=== PATIENT | female | born 1950 | race Caucasian/White ===

== ENCOUNTER 2022-04-08 08:30 | Outpatient (RCR) | payer MEDICARE, OTHER, SELFPAY ==
--- NOTE | 2022-02-02 10:02 | HP.PTEVAL_ITS ---
Patient's Visit Information KARTHIK HOOPER is a 71 year old F referred to Physical Therapy by Dr. Juanito Paige DO with a diagnosis of Left Knee. Date of Evaluation: 02/02/22 Physical Therapist: Lynn Villarreal DPT - Visit Plan Frequency: 2x /Week Duration: 4 Weeks Plan: Aquatic- Focus on LE ROM and core and LE and strength/stabilization - Subjective Patient reports that she had bilateral TKR 2019- 3 months apart. They have been great but in the process of moving she started having left knee pain. The knee does not bother her when she is walking but at night it stiffens up at night. She saw MD who x-rayed it and the replacement is where it suppose to be. The stiffness is very uncomfortable. Worst is laying on her right side and the leg across and then trying to lift it back over. She has cramps in the back of the leg and it she has to manually move it. She only has 78 degrees of flexion but was close to 100 prior to having issues with it. No radiating pain. Her knee feels full and inflexibile. No N/T in the toes. She is also having pain in her left shoulder. Both water and land therapy. She wants to do water therapy. She has been taking Ibuprofen and Tylenol 2x a week. Sleep: wakes her up and keeps her from sleeping. She is active- walks and has an exericse bench- that she does 4 exercises on them from PT (LAQ, bridge, marching, side lying leg lifts). She has a fear of falling- she has not fallen since her knee replacements. PMHx/Meds: no changes since sad Dr. Mc-in chart. - Objective Posture: moderate FH, RS- can correct RS but not FH with verbal cues- does not maintain. Gait: no deviation noted- good arm swing and trunk rotation. HR/TR: able with UE A. Stairs: asc/desc 8 recip with 1 HR- turns sideways to descend. SLS: 3 sec bilaterally then LOB. ROM: 0-85. Strength: Core: fair minus, Hip: 4+/5, Knee: 5/5, Ankle: 5/5. Flex: HS: severe, Gastroc: moderate. Palpation: tender along posterior joint line - Balance/Special Test Scores Lower Extremity Functional Score: 55 - Goals Goal 1:: Patient will be I with HEP and progression Goal Time Frame: 4-6 Weeks Goal 2:: Patient will maintain proper posture t/o tx session to demo increased core s/s Goal Time Frame: 4-6 Weeks Goal 3:: Patient will demo 0-110 degrees of ROM in the left knee Goal Time Frame: 4-6 Weeks Goal 4:: Patient will report 80% improvement Goal Time Frame: 4-6 Weeks - Rehabilitation Potential Physical Therapy Diagnosis: Patient presents with hypomobility- she has decreased LE and core strength/stabilization and muscular endurance leading to poor posture and increased pain with ADL's Rehabilitation Potential: Good - Anticipated Interventions Patient/Client Instruction: Educate patient on: Benefits of Fitness Program Therapeutic Exercise to Include: Strength training, Endurance training, Balance training, Coordination, Agility training, Body mechanics, Postural training, Flexibilty training, Gait and locomotor training, Neuromotor development, In an aquatic setting, Dynamic Lumbar Stabilization, Scapular Strength/Stabilization For the Purpose of:: To improve muscle performance and motor function Thank you for the opportunity to evaluate your patient. For Medicare and Medicare HMO plans, please review the plan of care and approve it. It will need to be FAXED BACK to us at [phone] for Medicare purposes. For Medicare only, by signing this I certify the plan of care. Please let me know if there are questions or concerns regarding this plan of care. Physician Signature: Date:
--- NOTE | 2022-02-10 09:10 | HP.PTEVAL2_ITS ---
Patient's Visit Information KARTHIK HOOPER is a 71 year old F referred to Physical Therapy by Dr. Juanito Paige DO with a diagnosis of PAIN IN LEFT SHOULDER ,BURSITIS OF LEFT SHOULDER. Date of Evaluation: 02/10/22 Physical Therapist: Deondre Concepcion, PT, Cert MDT, OCS - Visit Plan Frequency: 2x /Week Duration: 4 Weeks Plan: PT POSTURAL EX'S ,RTC /SACPULAR STRENGTHNEING ,FUNCTIONAL STRENGTHENING AND MODALTIES PRN - Subjective Subjective: This 71 y/o female presents to for physical therapy for left shoulder pain. Patient has had left shoulder pain for~ 2week possibly from moving. Seen DR for shoulder x-rays showed -. Pain meds -CELEBRX. Patient pain located left lateral deltoid. Aggravating factors reaching to side and lifting OH. Patient denies paresthesia/tingling. No pain at rest increases with movement described as throbbing Patient pain doesn't affects sleeping . Patient goals to have no pain. Patient seeing Aquatics for knee. Patient shoulder pain impairs QOL and function and housework tasks. Patient has no h/o trauma. SOCAIL: lives alone. VOCATION: retired - Pain Left Shoulder Intensity: 5 Pain Intensity Range: 10 Comment: movement - Objective Objective: POSTURE: mild forward posture. PALPATION: unremarkable. AROM: shoulder flexion 150 degrees ,abduction 150 degrees pain at ER ,ER 90 degrees ,IR L1. NEURO: intact ,denies paresthesia/tingling. MMT: RTC 4/5 ,deltoid 4-/5 - Special Tests External Rotation Lag Test - RC Tear: Negative Supine Impingement Test - RC Tear: Negative Lift Off Test - Subscapular Tear: Negative Drop Sign - IS Test: Negative Empty Can - SS: Negative Neer - Impingement: Positive [place]an - Impingement: Positive - Goals Goal 1:: Patient to be I with HEP Goal Time Frame: 4-6 Weeks Goal 2:: Patient to improve posture 90% of time during ADLS' and housework tasks Goal Time Frame: 4-6 Weeks Goal 3:: Patient to demonstrate 60% improvement with decrease pain and improved function Goal Time Frame: 4-6 Weeks Goal 4:: Patient to improve ability to perform quick dash by 5 points to improve QOL Goal Time Frame: 4-6 Weeks - Rehabilitation Potential Physical Therapy Diagnosis: This patient has left shoulder pain with pain with OH activities impairs housework tasks and minor impingement signs thus benefit from skilled PT Rehabilitation Potential: Good - Anticipated Interventions Patient/Client Instruction: Educate patient on: Condition, Plan of Care For the Purpose of:: To decrease pain, To increase ROM, To improve muscle performance and motor function, To improve ability to perform ADL's, To increase tolerance to activity/condition/position, To improve ability of physical actions for home/community/work/leisure, To improve health of tissue, To decrease soft tissue restriction, To increase flexibility/ROM, To prevent re-injury, To improve tolerance to ADL's Therapeutic Exercise to Include: Strength training, Endurance training, Postural training, Flexibilty training, Active ROM For the Purpose of:: To decrease pain, To increase ROM, To improve muscle performance and motor function, To improve ability to perform ADL's, To increase tolerance to activity/condition/position, To improve ability of physical actions for home/community/work/leisure, To improve health of tissue, To decrease soft tissue restriction, To increase flexibility/ROM, To prevent re-injury TENS: Yes IF ES: Yes Cryotherapy (ice pack, ice massage): Yes Thermo therapy (hot pack): Yes Ultrasound (thermal/non thermal): Yes For the Purpose of:: To decrease pain, To increase ROM, To improve health of tis álvaro, To decrease soft tissue restriction Thank you for the opportunity to evaluate your patient. For Medicare and Medicare HMO plans, please review the plan of care and approve it. It will need to be FAXED BACK to us at [phone] for Medicare purposes. For Medicare only, by signing this I certify the plan of care. Please let me know if there are questions or concerns regarding this plan of care. Physician Signature: Date:
--- NOTE | 2022-03-03 09:54 | HP.PTREVAL_ITS ---
Dr. Juanito Paige, DO, It has been my pleasure to treat KARTHIK HOOPER over the last 9 visits for Left Knee. Please see the progress note below for an update on the physical therapy plan of care! Subjective: Patient reports that the knee is much improved- she understands its a marathon not a sprint- she has been given tools to continue indep. She is sti ll having pain and had a little bit of a setback in her sleep and it was stiff and painful- came to PT worked it out and it was better. Objective/Function: Posture: fair throughout, Gait: slightly antalgic- decreased stance on the right LE, HR/TR: able SLS: 5 sec ROM: 0-90 degrees, Strength: Core: fair, Hip: 4/5 with discomfort in flexion testing, Knee: 4+/5, Ankle: 5/5 Flex: HS: moderate, Gastroc: moderate Plan Plan: 03/03/22: Hold- patient will do 4 week indep and follow up. Aquatic- Focus on LE ROM and core and LE and strength/stabilization Balance/Gait/Functional tests - Balance/Special Test Scores Lower Extremity Functional Score: 53 Quick DASH Score: 22.5000 Goals Goal 1:: Patient will be I with HEP and progression Goal Time Frame: 4-6 Weeks Goal Progress: Goal Met Goal 2:: Patient will maintain proper posture t/o tx session to demo increased core s/s Goal Time Frame: 4-6 Weeks Goal Progress: Progressing Goal 3:: Patient will demo 0-110 degrees of ROM in the left knee Goal Time Frame: 4-6 Weeks Goal Progress: Progressing Goal 4:: Patient will report 80% improvement Goal Time Frame: 4-6 Weeks Goal Progress: Progressing Anticipated Interventions Patient/Client Instruction: Educate patient on: Benefits of Fitness Program Therapeutic Exercise to Include: Strength training, Endurance training, Balance training, Coordination, Agility training, Body mechanics, Postural training, Flexibilty training, Gait and locomotor training, Neuromotor development, In an aquatic setting, Dynamic Lumbar Stabilization, Scapular Strength/Stabilization For the Purpose of:: To improve muscle performance and motor function Please do not hesitate to contact me at [phone] by phone or if you have questions or concerns regarding this new plan of care! Sincerely, Lynn Villarreal DPT
--- NOTE | 2022-04-24 16:02 | HP.PTDCS(2) ---
It has been my pleasure to treat KARTHIK HOOPER referred by Dr. Juanito Paige DO, with the diagnosis of PAIN IN LEFT SHOULDER ,BURSITIS OF LEFT SHOULDER for a total of 11 visit(s). Discharge Date: Please see the following information for a summary of their discharge status. Subjective: Patient has been able to do on own past month. Less pain ..sleeping better % Improvement: 75 Objective/Function/Assessment: POSTURE:rounded shoulders. PALAPTION: AROM: shoulder flexion 160 degrees ,abd 160 ER 90. MMT: GROSSLY 4/5 RTC ,DELTOID 4/5. - impingement Patient Goals: Improve Mobility, Improve Function Goal 1:: Patient to be I with HEP Goal 2:: Patient to improve posture 90% of time during ADLS' and housework tasks Goal 3:: Patient to demonstrate 60% improvement with decrease pain and improved function Goal 4:: Patient to improve ability to perform quick dash by 5 points to improve QOL Plan: D/C If there are questions or concerns regarding this patient's physical therapy, please feel free to call me at [phone]. Thank you for the referral of this patient. Sincerely, Deondre Concepcion, PT, Cert MDT, OCS
--- NOTE | 2022-04-28 09:23 | HP.PT.NRP ---
KARTHIK HOOPER was seen in my office for initial evaluation on 02/02/22. The following Plan of Care was established for this patient: Initial Frequency: 2x /Week Initial Duration: 4 Weeks Patient/Client Instruction: Educate patient on: Benefits of Fitness Program Therapeutic Exercise to Include: Strength training, Endurance training, Balance training, Coordination, Agility training, Body mechanics, Postural training, Flexibilty training, Gait and locomotor training, Neuromotor development, In an aquatic setting, Dynamic Lumbar Stabilization, Scapular Strength/Stabilization For the Purpose of:: To improve muscle performance and motor function This patient was last seen in our office . Pertinent comments regarding their Physical therapy will appear below: Patient called 04/24/22 and would like to be d/c- pt has completed physical therapy- appropriate for d/c- encouraged to call if questions or concerns. At this point I will be discontinuing this patient from physical therapy. I would be happy to see this patient again in the future if found appropriate by the physician. Thank you! Lynn Villarreal DPT Balance/Gait/Functional tests - Balance/Special Test Scores Lower Extremity Functional Score: 53 Quick DASH Score: 13.6350
== END 2022-04-08 19:00 | disposition home or self-care (01) ==
LOC: PT 08:30
PROVIDERS: Referring Provider Orthopaedic Surgery; Visit Provider Orthopaedic Surgery
DX: M25.662 Stiffness of left knee, not elsewhere classified (principal); Z96.659 Presence of unspecified artificial knee joint; Z47.1 Aftercare following joint replacement surgery; M25.562 Pain in left knee
CPT/HCPCS: 97110; 97113; 97162; 97164

== ENCOUNTER → 2022-10-25 | Outpatient (CLI) | payer MEDICARE, OTHER, SELFPAY ==
[2022-10-25 15:13] LABS: Mucous, Urine 0 SEEN /hpf (<or=2+)
[2022-10-25 15:23] LABS: Color, Urine Yellow (Yellow); Glucose, Dipstick Normal (Normal); Ketone-Dipstick Negative (Negative); Leukocyte Esterase-Dipstick 500 /ul (Negative); Nitrite-Dipstick Positive (Negative); Occult Blood-Urine 25 /ul (Negative); Protein-Dipstick Negative (Negative); Urine Bilirubin Dipstick Negative (Negative); Urine Clarity Sl. Cloudy (Clear); Urine Urobilinogen Normal (Normal)
[2022-10-25 15:53] LABS: Amorphous Sediment 1+ PHOS; Bacteria 2+ /hpf (None Seen); Red Blood Cells-Urine 0-5 SEEN /hpf (0-5); Squamous Epithelial Cells - UA 0-5 SEEN /hpf (5-10); White Blood Cells 50-100 SEEN /hpf (0-5)
== END | disposition home or self-care (01) ==
PROVIDERS: Visit Provider Nurse Practitioner Family
DX: R30.0 Dysuria (principal)
CPT/HCPCS: 81001; 87077; 87086; 87088; 87186

== ENCOUNTER 2022-11-02 10:30 | Outpatient (RCR) | payer MEDICARE, OTHER, SELFPAY ==
--- NOTE | 2022-07-29 16:47 | HP.PTEVAL_ITS ---
Patient's Visit Information KARTHIK HOOPER is a 72 year old F referred to Physical Therapy by CLEMENT GARCIA with a diagnosis of BPPV. Date of Evaluation: 07/29/22 Physical Therapist: Ubaldo Moore, JONATHONT, OCS, CSCS - Visit Plan Frequency: 1x/Week Duration: 4-6 Weeks Plan: weekly as needed x 4-6 for progression of home adaptation exercises(given VOR H and V today 60 seconds seated 6x/day - Subjective Had some spinning and vertigo. Intermittent for a long time. 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 Treated for BPPV last year and gone but recently returned. Came back about a week and a half ago. Good in am and worse as day progresses. Feels like a motion in head, worse driving in traffic. no spinning lately. Lying and rolling are OK, looking up and walking might set it off. Activities are pretty normal but can get nauseous sometimes. feels crummy. Retired. Sleeps well. Walks and does water aeorbics. - Objective Walking I, trasnfer I, steps R leg tough due to knee not dizzy. VOR walking is good. cervical AROM is WFL and painfree. - B hallpike josefa, - roll test. Oculomotor: - skew eye deviation. - ocular tilt. + head thrust L. + DVA > 2 lines form SVA. pursuit and saccades are normal. no nystagmus with gaze or head shake. - Balance/Special Test Scores Functional Gait Assessment Score: 26 % Disability: 13.3400 Dizziness Score: 20 - Goals Goal 1:: Dizzyness will be abolished Goal Time Frame: 4-6 Weeks Goal 2:: Pt will feel normal with activities in traffic, scrolling phone etc. Goal Time Frame: 4-6 Weeks Goal 3:: I appropriate ex to manage condition Goal Time Frame: 4-6 Weeks Goal 4:: DHI score less than 6 Goal Time Frame: 4-6 Weeks - Rehabilitation Potential Physical Therapy Diagnosis: Likely unilateral vestibular hypofunction Rehabilitation Potential: Good - Anticipated Interventions Patient/Client Instruction: Educate patient on: Condition, Plan of Care For the Purpose of:: To increase tolerance to activity/condition/position Comment: adaptation as needed For the Purpose of:: To increase tolerance to activity/condition/position Thank you for the opportunity to evaluate your patient. For Medicare and Medicare HMO plans, please review the plan of care and approve it. It will need to be FAXED BACK to us at [phone] for Medicare purposes. For Medicare only, by signing this I certify the plan of care. Please let me know if there are questions or concerns regarding this plan of care. Physician Sign ature: Date:
--- NOTE | 2022-08-20 14:19 | HP.PTREVAL ---
CLEMENT GARCIA, It has been my pleasure to treat KARTHIK HOOPER over the last 3 visits for BPPV. Please see the progress note below for an update on the physical therapy plan of care! Subjective: Doing well. Did exercises without dizzyness. Walking is not challenging due to dizzyness but more to confidence. Not noticing any other dizzyness in last 2 weeks. Activities pretty normal at home. no positional problem. Has not taken long road trip. Had phone conference with doctor last week and going well. Got new referral for different type of therapy. Objective/Function: no dizzyness created to day with FGA, VOR walking or bending and looking up. Subjectively doing well also. Plan Plan: F/U one month or prior if needed to ensure consistency of goals met and d/c. Balance/Gait/Functional tests - Balance/Special Test Scores Functional Gait Assessment Score: 27 % Disability: 10.0000 Dizziness Score: 2 Goals Goal 1:: Dizzyness will be abolished Goal Time Frame: 4-6 Weeks Goal Progress: Goal Met Goal 2:: Pt will feel normal with activities in traffic, scrolling phone etc. Goal Time Frame: 4-6 Weeks Goal Progress: Goal Met Goal 3:: I appropriate ex to manage condition Goal Time Frame: 4-6 Weeks Goal Progress: Goal Met Goal 4:: DHI score less than 6 Goal Time Frame: 4-6 Weeks Goal Progress: Goal Met Anticipated Interventions Patient/Client Instruction: Educate patient on: Condition, Plan of Care For the Purpose of:: To increase tolerance to activity/condition/position Comment: adaptation as needed For the Purpose of:: To increase tolerance to activity/condition/position Please do not hesitate to contact me at [phone] by phone or if you have questions or concerns regarding this new plan of care! Sincerely, Ubaldo Moore, DPT, OCS, CSCS
--- NOTE | 2022-09-09 13:29 | HP.PTDCSUM_ITS ---
It has been my pleasure to treat KARTHIK HOOPER referred by CLEMENT ESTEVEZ, with the diagnosis of BPPV for a total of 3 visit(s). Discharge Date: Please see the following information for a summary of their discharge status. Subjective: Doing well. Did exercises without dizzyness. Walking is not challenging due to dizzyness but more to confidence. Not noticing any other dizzyness in last 2 weeks. Activities pretty normal at home. no positional problem. Has not taken long road trip. Had phone conference with doctor last week and going well. Got new referral for different type of therapy. % Improvement: 100 Objective/Function: no dizzyness created to day with FGA, VOR walking or bending and looking up. Subjectively doing well also. Goal 1:: Dizzyness will be abolished Goal Progress: Goal Met Goal 2:: Pt will feel normal with activities in traffic, scrolling phone etc. Goal Progress: Goal Met Goal 3:: I appropriate ex to manage condition Goal Progress: Goal Met Goal 4:: DHI score less than 6 Goal Progress: Goal Met Plan: F/U one month or prior if needed to ensure consistency of goals met and d/c. If there are questions or concerns regarding this patient's physical therapy, please feel free to call me at [phone]. Thank you for the referral of this patient. Sincerely, Verena William, JULIETTE Balance/Gait/Functional tests - Balance/Special Test Scores Functional Gait Assessment Score: 27 % Disability: 10.0000 Dizziness Score: 2 Lower Extremity Functional Score: 80
--- NOTE | 2022-09-09 17:01 | HP.PT.NRP ---
KARTHIK HOOPER was seen in my office for initial evaluation on 07/29/22. The following Plan of Care was established for this patient: Initial Frequency: 1x/Week Initial Duration: 4-6 Weeks Patient/Client Instruction: Educate patient on: Condition, Plan of Care For the Purpose of:: To increase tolerance to activity/condition/position For the Purpose of:: To increase tolerance to activity/condition/position This patient was last seen in our office 08/20/22. Pertinent comments regarding their Physical therapy will appear below: Pt seen 3 visits of positional treatments and was doing well, was to f/u a month later but has seen another therapist for OP and said she is doing fine and will not be returning. i will discontinue at this time. At this point I will be discontinuing this patient from physical therapy. I would be happy to see this patient again in the future if found appropriate by the physician. Thank you! Ubaldo Moore, DPT, OCS, CSCS Balance/Gait/Functional tests - Balance/Special Test Scores Functional Gait Assessment Score: 27 % Disability: 10.0000 Dizziness Score: 2 Lower Extremity Functional Score: 80
--- NOTE | 2022-11-02 11:06 | HP.PTDCSUM_ITS ---
Discharge Summary D/C summary: It has been my pleasure to treat KARTHIK HOOPER referred by CLEMENT ESTEVEZ, with the diagnosis of BPPV for a total of 3 visit(s). Discharge Date: Please see the following information for a summary of their discharge status. Subjective Subjective: Doing well. Did exercises without dizzyness. Walking is not challenging due to dizzyness but more to confidence. Not noticing any other dizzyness in last 2 weeks. Activities pretty normal at home. no positional problem. Has not taken long road trip. Had phone conference with doctor last week and going well. Got new referral for different type of therapy. Overall Improvement % Improvement: 100 Objective Objective/Function: no dizzyness created to day with FGA, VOR walking or bending and looking up. Subjectively doing well also. Goals Goal 1:: Dizzyness will be abolished Goal Progress: Goal Met Goal 2:: Pt will feel normal with activities in traffic, scrolling phone etc. Goal Progress: Goal Met Goal 3:: I appropriate ex to manage condition Goal Progress: Goal Met Goal 4:: DHI score less than 6 Goal Progress: Goal Met Plan Plan: F/U one month or prior if needed to ensure consistency of goals met and d/c. D/C Information d/c sentence: If there are questions or concerns regarding this patient's physical therapy, please feel free to call me at [phone]. Thank you for the referral of this patient. Sincerely, Verena William, MPT Balance/Gait/Functional tests Balance/Special Test Scores Functional Gait Assessment Score: 27 % Disability: 10.0000 Dizziness Score: 2 Lower Extremity Functional Score: 62
--- NOTE | 2022-11-02 11:23 | HP.PTREVAL ---
Re-Evaluation Intro: CLEMENT GARCIA, It has been my pleasure to treat KARTHIK HOOPER over the last 3 visits for BPPV. Please see the progress note below for an update on the physical therapy plan of care! Subjective Subjective: Doing well. Did exercises without dizzyness. Walking is not challenging due to dizzyness but more to confidence. Not noticing any other dizzyness in last 2 weeks. Activities pretty normal at home. no positional problem. Has not taken long road trip. Had phone conference with doctor last week and going well. Got new referral for different type of therapy. Objective Objective/Function: no dizzyness created to day with FGA, VOR walking or bending and looking up. Subjectively doing well also. Plan Plan Plan: F/U one month or prior if needed to ensure consistency of goals met and d/c. Balance/Gait/Functional tests Balance/Special Test Scores Functional Gait Assessment Score: 27 % Disability: 10.0000 Dizziness Score: 2 Lower Extremity Functional Score: 62 Goals Goals Goal 1:: Dizzyness will be abolished Goal Time Frame: 4-6 Weeks Goal Progress: Goal Met Goal 2:: Pt will feel normal with activities in traffic, scrolling phone etc. Goal Time Frame: 4-6 Weeks Goal Progress: Goal Met Goal 3:: I appropriate ex to manage condition Goal Time Frame: 4-6 Weeks Goal Progress: Goal Met Goal 4:: DHI score less than 6 Goal Time Frame: 4-6 Weeks Goal Progress: Goal Met Anticipated Interventions Anticipated Interventions Patient/Client Instruction: Educate patient on: Condition and Plan of Care For the Purpose of:: To increase tolerance to activity/condition/position Comment: adaptation as needed For the Purpose of:: To increase tolerance to activity/condition/position Re-Evaluation Ending Re-evaluation ending: Please do not hesitate to contact me at [phone] by phone or if you have questions or concerns regarding this new plan of care! Sincerely, Verena William, MPT
--- NOTE | 2022-11-23 12:59 | HP.PTDS(2)_ITS ---
Discharge Summary D/C Summary: It has been my pleasure to treat KARTHIK HOOPER referred by CLEMENT ESTEVEZ, with the diagnosis of osteoporosis for a total of 6 visit(s). Discharge Date: 11/02/22 Please see the following information for a summary of their discharge status. Subjective Subjective: She has been coming at least 4-5X/ week and she feels that she can see improvement in her daily activities and she has increased her flexibility on her knee. She does not have to drag her knee out of the car anymore. She is feeling more confident. She is not having night knee pain anymore. Stairs: she is not faster and she still goes up slow. Overall Improvement % Improvement: 85 Objective Objective/Function/Assessment: Stairs: Up and down recip with some weakness present driving her L leg through the step and one hand rail R knee in sitting 90 degrees Hip flex R 13.5 and L 13.2 Knee ext R 27.7 and L 24.2 Knee flex R 14.8 and L 11.9 R hip abd 21.1 L hip abd 21.7 Goals Patient Goals: Improve Mobility and Improve Function Goal 1:: I HEP and weight bearing H&W program Goal Progress: Goal Met Goal 2:: Increase L knee AROM to be able to go up and down the stairs recip with more ease Goal Progress: Goal Met Goal 3:: Increase L hip flex strength( at the time of the eval: (LE MMT: Hip flex R 12.9 and L 9 Knee ext R 27.7 and L 24.2 Knee flex R 12.2 and L 9.6 R hip abd 11.4 L hip abd 12.1) Goal Progress: Goal Met Plan Plan: DC PT to I HEP D/C Information Discharge Comments: DC PT to H&W program d/c sentence: If there are questions or concerns regarding this patient's physical therapy, please feel free to call me at [phone]. Thank you for the referral of this patient. Sincerely, Verena William, MPT Balance/Special Test Scores Balance/Special Test Scores Functional Gait Assessment Score: 24 % Disability: 20.0000
== END 2022-11-02 19:00 | disposition home or self-care (01) ==
LOC: PT 10:30
DX: H81.10 Benign paroxysmal vertigo, unspecified ear (principal)
CPT/HCPCS: 97110; 97161; 97164; 97530

== ENCOUNTER → 2022-12-08 | Outpatient (CLI) | payer MEDICARE, OTHER, SELFPAY ==
[2022-12-08 16:18] LABS: Bacteria 0 SEEN /hpf (None Seen); Mucous, Urine 0 SEEN /hpf (<or=2+); Red Blood Cells-Urine 0 SEEN /hpf (0-5); Squamous Epithelial Cells - UA 0 SEEN /hpf (5-10); White Blood Cells 0 SEEN /hpf (0-5)
[2022-12-08 16:38] LABS: Color, Urine Yellow (Yellow); Glucose, Dipstick Normal (Normal); Ketone-Dipstick Negative (Negative); Leukocyte Esterase-Dipstick 25 /ul (Negative); Nitrite-Dipstick Negative (Negative); Occult Blood-Urine Negative /ul (Negative); Protein-Dipstick Negative (Negative); Urine Bilirubin Dipstick Negative (Negative); Urine Clarity Clear (Clear); Urine Urobilinogen Normal (Normal)
== END | disposition home or self-care (01) ==
LOC: LABSPEC 15:47
PROVIDERS: Referring Provider Physician Assistant; Visit Provider Physician Assistant
DX: R30.0 Dysuria (principal)
CPT/HCPCS: 81001; 87086

== ENCOUNTER → 2023-01-07 | Outpatient (CLI) | payer MEDICARE, OTHER, SELFPAY ==
[2023-01-07 08:48] LABS: Mucous, Urine 0 SEEN /hpf (<or=2+)
[2023-01-07 10:35] LABS: Color, Urine Yellow (Yellow); Glucose, Dipstick Normal (Normal); Ketone-Dipstick Negative (Negative); Leukocyte Esterase-Dipstick 500 /ul (Negative); Nitrite-Dipstick Negative (Negative); Occult Blood-Urine 10 /ul (Negative); Protein-Dipstick Negative (Negative); Urine Bilirubin Dipstick Negative (Negative); Urine Clarity Sl. Cloudy (Clear); Urine Urobilinogen Normal (Normal)
[2023-01-07 10:52] LABS: Bacteria 1+ /hpf (None Seen); Red Blood Cells-Urine 0-5 SEEN /hpf (0-5); Renal Epithelial Cells 0-5 SEEN /hpf (0-5); Squamous Epithelial Cells - UA 0-5 SEEN /hpf (5-10); White Blood Cells 10-25 SEEN /hpf (0-5)
== END | disposition home or self-care (01) ==
PROVIDERS: Visit Provider Physician Assistant Surgical
DX: R30.0 Dysuria (principal); N30.00 Acute cystitis without hematuria
CPT/HCPCS: 81001; 87077; 87086; 87088; 87186

== ENCOUNTER 2023-01-19 11:35 | Emergency (ER) | payer MEDICARE, OTHER, SELFPAY ==
[2023-01-19 11:37] VITALS: BP 173/86; PULSE 51; RESP 16; TEMP 35.9; O2SAT 100; BMI 35.2
--- NOTE | 2023-01-19 12:16 | EX.ED.DYSGE1 ---
HPI History of Present Illness Chief Complaint: Hypertension Detail of Chief Complaint: Acute on chronic hypertension Informant: patient Onset/Context/Timing Onset: Today and Hours Context: Gradual Onset Timing: Continuous Current Severity: Mild Maximum Severity: Mild Narrative Narrative: 72-year-old female history of hypertension. She also has some anxiety. Says her blood pressures been running elevated today. Denies chest pain or significant headache. No recent illness. She already is on a beta-leydi and hydrochlorothiazide. She sees a primary care physician out of [place] and recently she moved to [place]. Prior similar symptoms: Yes Recent Illness/Hospitalization: No [facility] Medical History Arthritis Hemorrhoid Hypertension Stiffness of left knee Home Medications biotin 1 mg capsule 1 mg PO DAILY 01/28/22 [History Last Taken Unknown] cholecalciferol (vitamin D3) 25 mcg (1,000 unit) capsule 25 mcg PO DAILY 01/28/22 [History Last Taken Unknown] coenzyme [id number] E 100 mg-100 unit capsule cap PO 01/28/22 [History Last Taken Unknown] hydrochlorothiazide 12.5 mg capsule 12.5 mg PO 01/28/22 [History Last Taken Unknown] magnesium 200 mg tablet 200 mg PO DAILY 01/28/22 [History Last Taken Unknown] nadolol 20 mg tablet 20 mg PO 01/28/22 [History Last Taken Unknown] rosuvastatin 20 mg tablet 20 mg PO 01/28/22 [History Last Taken Unknown] celecoxib 100 mg capsule (Celebrex) 100 mg PO BID #60 caps 02/04/22 [Rx Last Taken Unknown] omeprazole 20 mg capsule,delayed release 20 mg PO DAILY 07/06/22 [History Last Taken Unknown] ibandronate 150 mg tablet (Boniva) 150 mg PO QMONTH #12 tabs 10/25/22 [Rx Last Taken Unknown] Allergy/AdvReac Type Severity Reaction Status Date / Time No Known Allergies Allergy Unverified 01/07/23 07:34 Family History Other Cancer Heart disease Surgical History H/O: hysterectomy History of cholecystectomy Hx of appendectomy Hx of total knee arthroplasty Social History household members: none Smoking Status: Never smoker alcohol intake: current alcohol intake frequency: holidays/special occasions only ROS ROS ED ROS Narrative Denies recent illness. Review of Systems ROS Unobtainable: Denies due to encephalopathy Constitutional Constitutional ED: Denies chills or fever(s) Eyes Eyes: Denies blurry vision ENT ENT ED: Denies ear pain Cardiovascular Cardiovascular: Denies chest pain or palpitations Respiratory/Chest Respiratory/Chest: Denies cough or dyspnea Gastrointestinal Gastrointestinal: Denies abdominal pain Genitourinary Genitourinary ED: Denies dysuria Integumentary Denies abscess Neurologic Neurologic: Denies headache(s) Psychiatric Psychiatric: Reports anxiety; Denies depression Endocrine Endocrinology: Denies cold intolerance Hematologic/Lymphatic Hematologic/Lymphatic: Reports none Allergic/Immunologic Allergic/Immunologic ED: Denies mouth swelling or tongue swelling EXAM Physical Exam Narrative Exam Narrative: Well-appearing 72-year-old female. Initial blood pressure 173/86 when I am in the room is 152/76. No distress. HEENT exam unremarkable. Lungs clear. Heart regular rhythm. Abdomen soft nontender. Moving all 4 extremities. Neurologically she is awake and alert. No focal motor deficits. NIH score is 0. Const Vital Signs: 01/19/23 11:37 01/19/23 11:55 Temperature 96.7 F L Temperature Source Temporal Pulse Rate 51 L Respiratory Rate 16 Respiratory Effort Normal Non-Labored Respiratory Pattern Normal Blood Pressure 173/86 H Blood Pressure Mean 115 Pulse Ox 100 Oxygen Delivery Method Room Air Positive well nourished and well developed; Negative for cachectic, contractures or unkempt General Appearance ED: well developed and NAD; Negative for unkempt, cachectic, contractures, cyanotic, diaphoretic or pallor Nutritional Appearance: Negative for cachectic HEENT Reports moist mucous membranes Negative for trauma or tenderness Eyes PERRL and EOMs intact bilaterally General Eye ED: Negative for pale conjunctiva or scleral icterus Neck no lymphadenopathy, supple and no JVD General: Negative for tenderness Lymph Lymphatic: Negative for other Chest Wall inspection of chest normal and palpation of chest normal Chest: Negative for other Resp normal respiratory effort and clear to auscultation bilaterally Effort and Inspection: Negative for retractions Auscultation: Negative for rales, rhonchi or wheezes Cardio regular rate, regular rhythm, S1 normal heart sound, S2 normal heart sound and no murmurs Palpation: Negative for palpable S3 Rate: Negative for bradycardia or tachycardic Rhythm: Negative for abnormal rhythm GI normal to inspection, nondistended, normoactive bowel sounds, non-tender, non-distended and no masses Inspection: Negative for abdominal distention Auscultation: normoactive bowel sounds Palpation: soft; Negative for tender or guarding Bladder / Kidney Exam: No other Back/Spine no CVA tenderness General Back: Negative for CVA tenderness Cervical Spine: Negative for cervical spine tenderness Thoracic Spine / Upper Back: Negative for thoracic spinal tenderness or paraspinal muscle tenderness Lumbar Spine / Lower Back: Negative for lumbar spinal tenderness Extremity normal to inspection General Extremety ED: Negative for edema or tenderness General Extremity: Negative for edema Neuro oriented x3 and CN's II-XII intact bilaterally Sensorium / Orientation: alert; Negative for orientation impaired, lethargic or stuporous Motor Exam: strength 5/5 throughout Psych mental status grossly normal Appearance: Negative for unkempt Attitude: No agitated Mood & Affect: Negative for depressed, anxious or tearful Skin no rashes or lesions noted, no wounds and skin turgor normal General Skin Exam: elasticity normal; Negative for jaundice or pallor Lesions: No lesion noted Rashes: No rashes noted Trauma: Negative for abrasion Wounds: Negative for wounds noted MDM MDM MDM Narrative Medical decision making narrative: 72-year-old with acute on chronic hypertension. Benign exam. Normal EKG. She does not need any further evaluation. Discharged home. She is already taking hydrochlorothiazide and the beta-lyedi. She will continue her current medications. Do blood pressure checks and follow-up with her primary care physician for reevaluation and med adjustments as needed. History & Record Review Discussion w/independent historian: Patient Rhythm Strip Rhythm Strip: Sinus Rhythm Rate: 72 Ectopy: None and PAC(s) EKG Initial EKG: Attestation: I personally reviewed and interpreted this EKG as follows: Interpretation: Sinus Rhythm and No Acute Injury Pattern Comments: Sinus rhythm rate is 72. PACs. No acute signs of [place] or ischemia. Discharge Plan Triage Chief Complaint: Hypertension Other Complaint: Dizziness ED Provider: Hari Kaye Dx/Rx/DC Orders Clinical Impression: Hypertension Instructions: ED Hypertension, Established Prescriptions: No Action nadolol 20 mg tablet 20 mg PO hydrochlorothiazide 12.5 mg capsule 12.5 mg PO rosuvastatin 20 mg tablet 20 mg PO magnesium 200 mg tablet 200 mg PO DAILY biotin 1 mg capsule 1 mg PO DAILY cholecalciferol (vitamin D3) 25 mcg (1,000 unit) capsule 25 mcg PO DAILY coenzyme [id number] E 100-100 mg-unit capsule PO celecoxib [Celebrex] 100 mg capsule 100 mg PO BID Qty: 60 0RF omeprazole 20 mg capsule,delayed release(DR/EC) 20 mg PO DAILY ibandronate [Boniva] 150 mg tablet 150 mg PO QMONTH Qty: 12 0RF Primary Care Provider: Care Physician,No Primary Referrals: Care Physician,No Primary [Primary Care Provider] - Activity Restrictions/Additional Instructions: Follow-up with your primary care physician next week. Monitor your blood pressure twice daily for the next week and show this to your primary care physician. Pressures are running well he probably will need to do anything. If they are consistently high they may need to adjust your blood pressure medications. Your exam and EKG today were both normal. Disposition Disposition: Home, Self Care
[2023-01-19 12:21] VITALS: BP 141/66; PULSE 52; RESP 16; O2SAT 98
== END 2023-01-19 12:30 | disposition home or self-care (01) ==
LOC: ED 12:30
PROVIDERS: Emergency Provider Emergency Medicine; Visit Provider Emergency Medicine
DX: I10 Essential (primary) hypertension (principal); R42 Dizziness and giddiness; F41.9 Anxiety disorder, unspecified
CPT/HCPCS: 99282

== ENCOUNTER 2023-04-29 23:49 | Emergency (ER) | payer MEDICARE, OTHER, SELFPAY ==
[2023-04-29 23:51] VITALS: BP 177/99; PULSE 73; RESP 18; TEMP 36.7; O2SAT 100; BMI 34.7
--- NOTE | 2023-04-30 00:09 | CT_ITS ---
EXAM: CT Abdomen And Pelvis W/O Contrast Injection HISTORY: R flank pain TECHNIQUE: Routine protocol CT abdomen and pelvis. IV Contrast: None.. Oral contrast: None. RADIATION DOSAGE (If Supplied By Facility): CTDIvol = ( 19.77 ) mGy, DLP = ( 898.65 ) mGycm Individualized dose optimization techniques were used for this CT. COMPARISON: None. LIMITATIONS: None. FINDINGS: LOWER CHEST: Included lung bases are clear. Small hiatal hernia. LIVER: Grossly unremarkable. GALLBLADDER AND BILIARY TREE: Gallbladder surgically absent. PANCREAS: Grossly unremarkable. SPLEEN: Grossly unremarkable. ADRENAL GLANDS: Grossly unremarkable. KIDNEYS AND URETERS: No calculi demonstrated. No hydronephrosis. Small cyst in right kidney PERITONEUM: No free air. No free fluid. BOWEL: Diverticula throughout the colon. No bowel obstruction. APPENDIX: Not identified. VESSELS: Abdominal aorta is normal caliber. REPRODUCTIVE ORGANS: Uterus not identified. URINARY BLADDER: Grossly unremarkable. ABDOMINAL WALL: Unremarkable. BONES: No acute abnormalities. Degenerative changes lumbar spine. Bones appear osteopenic. CT/Abdomen/Pelvis without Cont IMPRESSION: No acute findings. Colonic diverticulosis without evidence of acute diverticulitis. Electronically Signed: Hilary Hamilton MD at 0:48 EST ,
--- NOTE | 2023-04-30 00:10 | EX.ED.DYSGE1 ---
HPI History of Present Illness Chief Complaint: General Illness Informant: patient Narrative Narrative: Patient presents having intermittent episodes of vertiginous symptoms all day this past day. She states they are triggered with movement and when she remains still last for a relatively brief period of time but associated with nausea. No vomiting. No earache or recent URI in the last several weeks. No recent head injury. She states she has had vertigo before and the issue was her left ear in the past and she states this feels similar although she does not have any ear symptoms right now. She states she first noticed it when she bailey up out of bed in the morning. She also noticed that when she was driving so she took a meclizine around 8 or 9 hours ago, seem to help with the vertigo for the afternoon but not with her nausea but she took no other medication for any of this. Also as a separate issue, she states 3 weeks ago she urinated out would look like a small stone but did not have any pain or problems with it. For the last week or 2 she has been having pain in her right mid abdomen that has been annoying but not severe without any urinary symptoms, pain into her back, fevers, chills, or nausea until today when her vertiginous symptoms started. She has no history of kidney stones until she urinated out this 1 small stone surprisingly and is wondering if she may have another 1. She has had a prior cholecystectomy. [facility] Medical History Arthritis Hemorrhoid Hypertension Stiffness of left knee Home Medications biotin 1 mg capsule 1 mg PO DAILY 01/28/22 [History Last Taken Unknown] cholecalciferol (vitamin D3) 25 mcg (1,000 unit) capsule 25 mcg PO DAILY 01/28/22 [History Last Taken Unknown] coenzyme [id number] E 100 mg-100 unit capsule 1 cap PO DAILY 01/28/22 [History Last Taken Unknown] hydrochlorothiazide 12.5 mg capsule 12.5 mg PO DAILY 01/28/22 [History Last Taken Unknown] magnesium 200 mg tablet 200 mg PO DAILY 01/28/22 [History Last Taken Unknown] nadolol 20 mg tablet 20 mg PO DAILY 01/28/22 [History Last Taken Unknown] rosuvastatin 20 mg tablet 20 mg PO QHS hyperlipidemia 01/28/22 [History Last Taken Unknown] omeprazole 20 mg capsule,delayed release 10 mg PO DAILY 07/06/22 [History Last Taken Unknown] calcium citrate 250 mg PO DAILY PRN OSTEOPOROSIS 04/30/23 [History Last Taken Unknown] ibandronate 150 mg tablet 150 mg PO QMONTH osteoporosis 04/30/23 [History Last Taken Unknown] meclizine 12.5 mg tablet 12.5 mg PO TID PRN dizziness 04/30/23 [History Last Taken Unknown] multivitamin (Daily Multi-Vitamin tablet) 1 tab PO DAILY 04/30/23 [History Last Taken Unknown] ondansetron 4 mg disintegrating tablet 8 mg (2 x 4 mg) PO Q8H PRN PRN Nausea #20 tabs 04/30/23 [Rx Last Taken Unknown] Allergy/AdvReac Type Severity Reaction Status Date / Time No Known Allergies Allergy Verified 04/29/23 23:53 Family History Other Cancer Heart disease Surgical History H/O: hysterectomy History of cholecystectomy Hx of appendectomy Hx of total knee arthroplasty Social History household members: none Smoking Status: Never smoker alcohol intake: current alcohol intake frequency: holidays/special occasions only ROS ROS ED Constitutional Constitutional ED: Denies chills or fever(s) Eyes Eyes: Denies change in vision or diplopia ENT ENT ED: Reports as per HPI, disequillibrium, dizziness and vertigo; Denies ear pain, rhinorrhea, sore throat or tinnitus Cardiovascular Cardiovascular: Denies chest pain or palpitations Respiratory/Chest Respiratory/Chest: Denies cough or dyspnea Gastrointestinal Gastrointestinal: Reports abdominal pain and nausea; Denies diarrhea or vomiting Genitourinary Genitourinary ED: Denies dysuria or hematuria Musculoskeletal Musculoskeletal: Denies back pain or neck pain Integumentary Denies abscess or rash Neurologic Neurologic: Denies headache(s), paresthesias or weakness Psychiatric Psychiatric: Denies anxiety or suicidal thoughts EXAM Physical Exam Const Vital Signs: 04/29/23 23:51 04/30/23 00:44 Temperature 98.0 F Temperature Source Temporal Pulse Rate 73 Respiratory Rate 18 Respiratory Effort Normal Respiratory Pattern Normal Blood Pressure 177/99 H Blood Pressure Mean 125 Pulse Ox 100 Oxygen Delivery Method Room Air Positive well nourished, well developed and obese General Appearance ED: well developed and NAD Nutritional Appearance: obese HEENT Reports TM's clear and moist mucous membranes normocephalic and atraumatic Tympanic Membrane ED: Yes TM's clear Eyes PERRL and EOMs intact bilaterally Eyes Narrative: No nonfatigable or vertical or rotatory nystagmus. Normal jolt test, but patient asymptomatic at time of test. Neck full ROM and supple Chest Wall inspection of chest normal and palpation of chest normal Resp normal respiratory effort and clear to auscultation bilaterally Cardio regular rate, regular rhythm and no murmurs GI non-tender and non-distended Auscultation: normoactive bowel sounds Palpation: soft Back/Spine no CVA tenderness General Back: other FROM Extremity normal to inspection General Extremety ED: Negative for edema, pulses abnormal or tenderness General Extremity: Negative for edema or pulses abnormal Neuro oriented x3, CN's II-XII intact bilaterally and no sensory deficits noted Neuro Narrative: Normal gait without ataxia. Normal [id number] and [id number] bilaterally. Normal visual field test. NIHSS 0. Sensorium / Orientation: awake and alert Motor Exam: strength 5/5 throughout Psych mental status grossly normal Skin no rashes or lesions noted and no wounds MDM MDM MDM Narrative Medical decision making narrative: Patient was amenable to a CT of her abdomen/pelvis, to see if she had ureteral lithiasis/urolithiasis. I reviewed the images and the report which I agree with, it is negative for this. She has diverticulosis which she was aware of, no acute diverticulitis at this time. Urinalysis is remarkable for leukocyte esterase but no pyuria, nitrate, or bacteria and without urinary symptoms I do not think we need to send the culture; her labs are normal. She was given meclizine and Zofran and after some time she felt much better with regards to her vertigo and nausea. She has had this vertigo before and had vestibular therapy in the past, she states this feels similar. She is not ataxic or in emergent danger of falling, some comfortable with her going home as is she. Advised to follow-up as needed. I do not think this is central vertigo at this time as is all consistent with peripheral. Lab Data Attestation: I reviewed the patient's lab results. Labs: Laboratory Results - last 24 hr 04/30/23 00:27 WBC 8.0 RBC 4.82 Hgb 13.4 Hct 41.1 MCV 85.3 MCH 27.8 MCHC 32.6 RDW Std Deviation 42.0 RDW Coeff of Mey 13.4 Plt Count 226 MPV 10.4 Immature Gran % (Auto) 0.600 Neut % (Auto) 59.1 Lymph % (Auto) 27.8 [place] % (Auto) 9.7 Eos % (Auto) 1.9 Baso % (Auto) 0.9 Absolute Neuts (auto) 4.7 Absolute Lymphs (auto) 2.21 Nucleated RBC % 0 Sodium 141 Potassium 3.8 Chloride 107 Carbon Dioxide 27.0 Anion Gap 7 BUN 13 Creatinine 0.70 Estim Creat Clear Calc 44.41 Est GFR (MDRD) Af Amer 106 Est GFR (MDRD) Non-Af 87 BUN/Creatinine Ratio 18.6 Glucose 114 H Calcium 9.7 Total Bilirubin 0.40 AST 14 L ALT 16 Alkaline Phosphatase 62 Total Protein 7.4 Albumin 3.6 Globulin 3.8 Albumin/Globulin Ratio 0.9 Urine Color Yellow Urine Clarity Clear Urine pH 7.0 Ur Specific [place] 1.015 Urine Protein 15 H Urine Glucose (UA) Normal Urine Ketones Negative Urine Occult Blood 25 H Urine Nitrite Negative Urine Bilirubin Negative Urine Urobilinogen Normal Ur Leukocyte Esterase 500 H Urine RBC 0 SEEN Urine WBC 0-5 SEEN Ur Squamous Epith Cells 0-5 SEEN Urine Bacteria 0 SEEN Urine Mucus 0 SEEN Radiography Diagnostic Testing: Clinical Impression(s) from Imaging Studies Abdomen/Pelvis CT 04/30/23 00:09 IMPRESSION: No acute findings. Colonic diverticulosis without evidence of acute diverticulitis. Electronically Signed: Hilary Hamilton MD at 0:48 EST , Discharge Plan Triage Chief Complaint: General Illness ED Provider: Luis Leigh Dx/Rx/DC Orders Clinical Impression: Acute right flank pain, Peripheral vertigo, Episode of hypertension Instructions: ED Flank Pain, Uncertain Cause, ED Vertigo, Unspecified Prescriptions: New ondansetron [ondansetron] 4 mg tablet,disintegrating 8 mg PO Q8H PRN PRN (Reason: Nausea) Qty: 20 0RF No Action nadolol 20 mg tablet 20 mg PO DAILY hydrochlorothiazide 12.5 mg capsule 12.5 mg PO DAILY rosuvastatin 20 mg tablet 20 mg PO QHS magnesium 200 mg tablet 200 mg PO DAILY biotin 1 mg capsule 1 mg PO DAILY cholecalciferol (vitamin D3) 25 mcg (1,000 unit) capsule 25 mcg PO DAILY coenzyme [id number]-[id number] E 100-100 mg-unit capsule 1 cap PO DAILY omeprazole 20 mg capsule,delayed release(DR/EC) 10 mg PO DAILY meclizine 12.5 mg tablet 12.5 mg PO TID PRN (Reason: dizziness) Patient Comments: take 1/2 to 1 tablet by mouth three times a day if needed multivitamin [Daily Multi-Vitamin] Tablet 1 tab PO DAILY calcium citrate 250 mg calcium tablet 250 mg PO DAILY PRN (Reason: OSTEOPOROSIS) ibandronate 150 mg tablet 150 mg PO QMONTH Primary Care Provider: Care Physician,No Primary Referrals: Sinan Sellers MD [Med Staff - Active Staff] - 1 Week if not improving (Or your regular doctor) Care Physician,No Primary [Primary Care Provider] - Activity Restrictions/Additional Instructions: Follow-up with your doctor for a blood pressure recheck when you are feeling better. Disposition Disposition: Home, Self Care
--- OUTSIDE RECORDS SUMMARY | 2023-04-30 00:22 | XMS RPT_ITS | CCD ---
Author Name Unknown Address [address] [place] [address] Organization [facility] Care Team Providers Care Office Receptionist Name Role Phone Edgar Richard Unavailable Unavailable Lucie Forbes Unavailable Unavailable García Ruggiero Unavailable Unavailable García Ruggiero Unavailable Unavailable Edgar Richard Unavailable Unavailable Anne-Marie Raphael Unavailable Unavailable Lucie Forbes Unavailable Unavailable García Ruggiero Unavailable Unavailable Tera Lopez Unavailable Unavailable Anne-Marie Raphael Unavailable Unavailable García Ruggiero Unavailable Unavailable Clement Adamson Unavailable Unavailable Unavailable Unavailable Unavailable PROVIDER, UNKNOWN Admitting Unavailable JAKE GRIMALDO Attending Unavailable Unavailable Primary Care Provider Unavailabl e Unavailable Unavailable Unavailable Primary Care Provider Unavailabl e Self, Referral Referring Unavailable Lucie Cuenca Attending Unavailable Dr. Clement Adamson Primary Care Hussain Adamson, Dr. Hill Referring Hussain Adamson, Dr. Hill Attending Hussain Adamson, Dr. Hill Primary Care Hussain Adamson, Dr. Hill Primary Care Hussain Adamson, Dr. Hill Attending Hussain vang Self, Referral Referring Unavailable Snow, Dr. Hill Referring Hussain Adamson, Dr. Hill Attending Hussain Adamson, Dr. Hill Primary Care Hussain Adamson, Dr. Hill Attending Hussain vang Self, Referral Referring Unavailable Snow, Dr. Hill Primary Care Hussain Adamson, Dr. Hill Attending Hussain vang Self, Referral Referring Unavailable Snow, Dr. Hill Primary Care Hussain Adamson, Dr. Hill Attending Hussain Adamson, Dr. Hill Primary Care Hussain vang Unavailable Primary Care Provider Clement Chen MD Primary Care Provider Clement Adamson MD Unavailable SNOW, CLEMENT Attending Soren ADAMSON, CLEMENT Primary Care Soren e SNOW, CLEMENT Attending Soren ADAMSON, CLEMENT Primary Care Soren e SNOW, CLEMENT Primary Care Soren e KETAN CALLEJAS Attending Unavailable Allergies Allergy Classification Reported Allergen(s) Allergy Type Date of Onset Reaction(s) Facility (4 sources) SEASONAL IC; Translations: [SEASONAL IC] Propensity to adverse reactions to drug (disorder) 6 [employer] Repository Medications Current Medications Medication Drug Class(es) Dates Sig (Normalized) Sig (Original) aspirin 81 mg delayed release oral tablet (20 sources) Platelet Aggregation Inhibitor, Nonsteroidal Anti-inflammatory Drug take 1 tablet by mouth once daily aspirin EC 81 MG tablet Take 81 mg by mouth daily. 0 Active Completed/Discontinued Medications Medication Drug Class(es) Dates Sig (Normalized) Sig (Original) acetaminophen 300 mg / codeine phosphate 30 mg oral tablet (12 sources) Opioid Agonist Start: 11-01-2018 take 1 tablet by mouth every four to six hours as needed for pain Acetaminophen-Co deine #3 300-30 MG Oral Tablet TAKE 1 TABLET EVERY 4 TO 6 HOURS NEEDED FOR PAIN. Quantity: 20 Refills: 0 Edgar Richard MD Start : 01-Nov-2018 Active acetaminophen 325 mg / oxyCODONE hydrochloride 5 mg oral tablet (20 sources) Opioid Agonist Start: 10-12-2018 take 1-2 tablets by mouth every four to six hours as needed for pain oxyCODONE-Acetam inophen 5-325 MG Oral Tablet TAKE 1 TO 2 TABLETS EVERY 4 TO 6 HOURS NEEDED FOR PAIN. Quantity: 80 Refills: 0 Edgar Richard MD Start : 04-Jan-2019 Active amoxicillin 500 mg oral capsule (5 sources) Penicillin-class Antibacterial Start: 04-24-2019 take 4 capsules by mouth every hour Amoxicillin 500 MG Oral Capsule Take 4 caps 1hr prior to dental procedure Quantity: 12 Refills: 1 Edgar Richard MD Start : 24-Apr-2019 Active azelastine hydrochloride 0.137 mg/actuat metered dose nasal spray (20 sources) Histamine-1 Receptor Antagonist Start: 09-27-2020 take 2 spray(s) nasal route twice daily Azelastine HCl - 0.1 % Nasal Solution USE 2 SPRAYS IN EACH NOSTRIL TWICE DAILY Quantity: 30 Refills: 3 Ordered: 02-Jan-2022 Clement Adamson MD Start : 16-Jul-2021 Active cephalexin 500 mg oral capsule (17 sources) Cephalosporin Antibacterial Start: 08-03-2017 take 1 capsule by mouth three times daily Cephalexin 500 MG Oral Capsule TAKE 1 CAPSULE 3 TIMES DAILY UNTIL GONE. Quantity: 30 Refills: 0 García Ruggiero MD Start : 03-Aug-2017 Active cholecalciferol 0.05 mg oral tablet (20 sources) Vitamin D Start: 09-18-2020 take 1 tablet by mouth once daily Vitamin D3 50 MCG (2000 UT) Oral Tablet Vitamin D3 2000 IU take one daily Quantity: 30 Refills: 3 Ordered: 18-Sep-2020 Clement Adamson MD Start : 18-Sep-2020 Active Problems Active Problems Problem Classification Problem Date Documented Date Episodic/Chronic Anxiety disorders (20 sources) Anxiety disorder; Translations: [Panic disorder] Chronic Cataract (3 sources) Nuclear senile cataract; Translations: [Age-related nuclear cataract, unspecified eye] Onset: 02-15-2013 11-14-2015 Chronic Conditions associated with dizziness or vertigo (10 sources) Benign paroxysmal positional vertigo; Translations: [Benign paroxysmal positional vertigo] Onset: 01-07-2023 01-07-2023 Episodic Disorders of lipid metabolism (20 sources) Hyperlipidemia; Translations: [Other and unspecified hyperlipidemia] Onset: 02-23-2006 11-14-2015 Chronic Diverticulosis and diverticulitis (3 sources) Diverticulosis of large intestine; Translations: [Diverticulosis of large intestine without perforation or abscess without bleeding] Onset: 03-28-2014 11-14-2015 Chronic Esophageal disorders (20 sources) Gastroesophageal reflux disease; Translations: [Esophageal reflux] Chronic Essential hypertension (20 sources) Essential hypertension; Translations: [Unspecified essential hypertension] Chronic Fracture of upper limb (20 sources) Fracture of phalanx of finger; Translations: [Closed fracture of phalanx or phalanges of hand, unspecified] Episodic Genitourinary symptoms and ill-defined conditions (5 sources) Abnormal urine odor; Translations: [Unspecified abnormal findings in urine] Onset: 01-07-2023 01-07-2023 Episodic Nonmalignant breast conditions (20 sources) Lesion of breast; Translations: [Unspecified breast disorder] Episodic Nutritional deficiencies (20 sources) Vitamin D deficiency; Translations: [Unspecified vitamin D deficiency] Chronic Osteoarthritis (20 sources) Primary gonarthrosis, bilateral; Translations: [Osteoarthrosis, localized, primary, lower leg] Onset: 08-27-2009 11-14-2015 Chronic Osteoporosis (3 sources) Age-related osteoporosis without current pathological fracture; Translations: [Age-related osteoporosis w/o current pathological fracture] Onset: 07-31-2022 Chronic Other aftercare (20 sources) Patient encounter status; Translations: [Aftercare following joint replacement] Chronic Other bone disease and musculoskeletal deformities (2 sources) Osteopenia; Translations: [Disorder of bone and cartilage, unspecified] Episodic Other connective tissue disease (20 sources) Hand pain; Translations: [Pain in limb] Episodic Other connective tissue disease (9 sources) Pain in lower limb; Translations: [Pain in limb] Episodic Other eye disorders (3 sources) Vitreous detachment; Translations: [Vitreous degeneration, unspecified eye] Onset: 07-17-2015 11-14-2015 Chronic Other injuries and conditions due to external causes (20 sources) Injury of wrist; Translations: [Elbow, forearm, and wrist injury] Episodic Other lower respiratory disease (20 sources) Solitary pulmonary nodule; Translations: [Nodule of lung] Episodic Other non-traumatic joint disorders (20 sources) Knee pain; Translations: [Knee pain] Episodic Other non-traumatic joint disorders (20 sources) Pain in unspecified knee; Translations: [Knee pain] Episodic Other nutritional; endocrine; and metabolic disorders (20 sources) Body mass index 30+ - obesity; Translations: [Obesity, unspecified] Chronic Other nutritional; endocrine; and metabolic disorders (15 sources) Obesity; Translations: [Obesity, unspecified] Chronic Other screening for suspected conditions (not mental disorders or infectious disease) (18 sources) Mammographic breast density; Translations: [Other (abnormal) findings on radiological examination of breast] Onset: 07-21-2021 Episodic Other skin disorders (9 sources) Acquired keratoderma; 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, acquired] Episodic Other upper respiratory disease (20 sources) Allergic rhinitis; Translations: [Allergic rhinitis, cause unspecified] Onset: 07-16-2004 06-12-2021 Chronic Other upper respiratory disease (3 sources) Chronic rhinitis; Translations: [Chronic rhinitis] Onset: 10-28-2006 11-14-2015 Chronic Residual codes; unclassified (20 sources) At risk of diabetes mellitus; Translations: [Other specified conditions influencing health status] Episodic Residual codes; unclassified (20 sources) At risk of coronary heart disease ; Translations: [Other specified personal history presenting hazards to health] Episodic Residual codes; unclassified (2 sources) Menopause present; Translations: [Asymptomatic postmenopausal status (age-related) (natural)] Episodic Residual codes; unclassified (3 sources) Asymptomatic menopausal state; Translations: [Asymptomatic menopausal state] Onset: 07-31-2022 Episodic Spondylosis; intervertebral disc disorders; other back problems (20 sources) Chronic neck pain; Translations: [Neck pain] Episodic Urinary tract infections (20 sources) Bacterial urinary infection; Translations: [Urinary tract infection, site not specified] Episodic Past or Other Problems Problem Classification Problem Date Documented Da te Episodic/Chronic Diabetes mellitus without complication (20 sources) Impaired fasting glycemia; Translations: [Impaired fasting glucose] Onset: 02-04-2014 11-14-2015 Episodic Hemorrhoids (18 sources) Hemorrhoids; Translations: [Unspecified hemorrhoids without mention of complication] Onset: 03-28-2014 11-14-2015 Episodic Immunizations and screening for infectious disease (20 sources) Patient encounter status; Translations: [Other specified vaccination] Onset: 03-28-2014 06-12-2021 Episodic Other and unspecified benign neoplasm (3 sources) Senile angioma; Translations: [Hemangioma of skin and subcutaneous tissue] Onset: 02-03-2016 02-03-2016 Episodic Other lower respiratory disease (12 sources) Lung mass; Translations: [Lung nodule] Episodic Other lower respiratory disease (20 sources) H/O: respiratory disease; Translations: [Personal history of other diseases of respiratory system] Resolved: 05-15-2019 Episodic Other nervous system disorders (3 sources) Loss of sense of smell; Translations: [Anosmia] Onset: 10-28-2006 11-14-2015 Episodic Other nutritional; endocrine; and metabolic disorders (3 sources) Overweight; Translations: [Overweight] Onset: 06-05-2004 06-12-2021 Episodic Other upper respiratory infections (14 sources) Acute sinusitis; Translations: [Acute sinusitis] Episodic Unclassified (20 sources) Patient encounter status; Translations: [Aftercare following right knee joint replacement surgery] Unclassified (13 sources) Patient encounter status; Translations: [Aftercare following left knee joint replacement surgery] NEGATED: Highlighted row has not occurred!Residual codes; unclassified (20 sources) Disease Episodic Results Test Name Value Interpretation Reference Range Facil ity Vital Signs Date Time Vital Sign Value Performing Clinician Karmeni lity 06-11-2022 10:25-0500 Diastolic blood pressure 79 mm[Hg] Clement Adamson Work Phone: [facility] [address] [facility] [address] Work Phone: 06-11-2022 10:25-0500 Systolic blood pressure 130 mm[Hg] Clement Adamson Work Phone: [facility] [facility] [address] Work Phone: 06-11-2022 09:35-0500 Body height 165.1 cm Clement Adamson Work Phone: [facility] [facility] [address] Work Phone: 06-11-2022 09:35-0500 Body mass index (BMI) [Ratio] 34.61 kg/m2 Clement Adamson Work Phone: [facility] [facility] [address] Work Phone: 06-11-2022 09:35-0500 Body surface area Derived from formula 2.01 m2 Clement Adamson Work Phone: [facility] [facility] [address] Work Phone: 06-11-2022 09:35-0500 Body weight 94.35 kg Clement Adamson Work Phone: [facility] [facility] [address] Work Phone: 06-11-2022 09:35-0500 Heart rate 85 /min Clement Adamson Work Phone: [facility] [facility] [address] Work Phone: 06-11-2022 09:35-0500 SaO2% (BldA) [Mass fraction] 98 % Clement Adamson Work Phone: [facility] [facility] [address] Work Phone: 08-25-2021 12:26-0400 Body temperature 98 [degF] Clement Adamson [facility] Work Phone: 06-11-2021 09:42-0500 Diastolic blood pressure 70 mm[Hg] Clement Adamson Work Phone: [facility] [facility] Work Phone: 06-11-2021 09:42-0500 Systolic blood pressure 127 mm[Hg] Clement Adamson Work Phone: [facility] [facility] [address] Work Phone: 06-11-2021 07:54-0500 Body mass index (BMI) [Ratio] 34.45 kg/m2 Clement Adamson Work Phone: [facility] [facility] [address] Work Phone: 06-11-2021 07:54-0500 Body surface area Derived from formula 2.01 m2 Clement Adamson Work Phone: [facility] [facility] [address] Work Phone: 06-11-2021 07:54-0500 Body weight 93.9 kg Clement Adamson Work Phone: [facility] [facility] [address] Work Phone: 06-11-2021 07:54-0500 Heart rate 83 /min Clement Adamson Work Phone: [facility] [facility] [address] Work Phone: 06-11-2021 07:54-0500 SaO2% (BldA) [Mass fraction] 100 % Clement Adamson Work Phone: [facility] [address] [facility] Work Phone: 12-17-2020 08:20-0400 Diastolic blood pressure 79 mm[Hg] Clement Adamson Work Phone: [facility] [address] [facility] Work Phone: 12-17-2020 08:20-0400 Systolic blood pressure 130 mm[Hg] Clement Adamson Work Phone: [facility] [facility] Work Phone: 12-17-2020 07:58-0400 Body mass index (BMI) [Ratio] 34.78 kg/m2 Clement Adamson Work Phone: [facility] [address] [facility] Work Phone: 12-17-2020 07:58-0400 Body surface area Derived from formula 2.02 m2 Clement Adamson Work Phone: [facility] [address] [facility] Work Phone: 12-17-2020 07:58-0400 Body weight 94.8 kg Clement Adamson Work Phone: [facility] [facility] Work Phone: 12-17-2020 07:58-0400 Heart rate 75 /min Clement Adamson Work Phone: [facility] [facility] Work Phone: 12-17-2020 07:58-0400 SaO2% (BldA) [Mass fraction] 99 % Clement Adamson Work Phone: [facility] [address] [facility] Work Phone: 09-18-2020 14:58-0400 Systolic blood pressure 137 mm[Hg] Clement Adamson Work Phone: [facility] Work Phone: 09-17-2020 12:01-0400 Diastolic blood pressure 88 mm[Hg] Clement Adamson Work Phone: [facility] [address] [facility] Work Phone: 09-17-2020 12:01-0400 Diastolic blood pressure 87 mm[Hg] Clement Adamson Work Phone: [facility] [address] [facility] Work Phone: 09-17-2020 12:01-0400 Systolic blood pressure 138 mm[Hg] Clement Adamson Work Phone: [facility] [facility] [address] Work Phone: 09-17-2020 12:01-0400 Systolic blood pressure 137 mm[Hg] Clement Adamson Work Phone: [facility] [facility] Work Phone: 09-17-2020 10:59-0400 Body height 165.1 cm Clement Adamson Work Phone: [facility] [address] [facility] [address] Work Phone: 09-17-2020 10:59-0400 Body mass index (BMI) [Ratio] 35.94 kg/m2 Clement Adamson Work Phone: [facility] [facility] [address] Work Phone: 09-17-2020 10:59-0400 Body surface area Derived from formula 2.04 m2 Clement Adamson Work Phone: [facility] [address] [facility] Work Phone: 09-17-2020 10:59-0400 Body weight 97.98 kg Clement Adamson Work Phone: [facility] [address] [facility] [address] Work Phone: 09-17-2020 10:59-0400 Heart rate 87 /min Clement Adamson Work Phone: [facility] [address] [facility] [address] Work Phone: 09-17-2020 10:59-0400 SaO2% (BldA) [Mass fraction] 98 % Clement Adamson Work Phone: [facility] [address] [facility] Work Phone: 08-21-2020 15:02-0400 Diastolic blood pressure 106 mm[Hg] Clement Adamson Work Phone: [facility] [address] [facility] Work Phone: 08-21-2020 15:02-0400 Systolic blood pressure 154 mm[Hg] Clement Adamson Work Phone: [facility] [address] [facility] Work Phone: 08-21-2020 14:41-0400 Body mass index (BMI) [Ratio] 36.49 kg/m2 Clement Adamson Work Phone: [facility] [address] [facility] Work Phone: 08-21-2020 14:41-0400 Body surface area Derived from formula 2.06 m2 Clement Adamson Work Phone: [facility] [address] [facility] Work Phone: 08-21-2020 14:41-0400 Body weight 99.45 kg Clement Adamson Work Phone: [facility] [address] [facility] Work Phone: 08-21-2020 14:41-0400 Diastolic blood pressure 110 mm[Hg] Clement Adamson Work Phone: [facility] [address] [facility] Work Phone: 08-21-2020 14:41-0400 Heart rate 93 /min Clement Adamson Work Phone: [facility] [facility] [address] Work Phone: 08-21-2020 14:41-0400 SaO2% (BldA) [Mass fraction] 98 % Clement Adamson Work Phone: [facility] [address] [facility] Work Phone: 08-21-2020 14:41-0400 Systolic blood pressure 156 mm[Hg] Clement Adamson Work Phone: [facility] [address] [facility] Work Phone: 06-20-2020 11:20-0500 BMI (Body Mass Index) 36.94 kg/m2 García smiley [facility] [address] Work Phone: 06-20-2020 11:20-0500 Body weight 100.7 kg García Rebolledo [facility] [address] Work Phone: 06-20-2020 11:20-0500 BP Diastolic 84 mm[Hg] García Rebolledo [facility] [address] Work Phone: 06-20-2020 11:20-0500 BP Systolic 152 mm[Hg] García Rebolledo [facility] [address] Work Phone: 06-20-2020 11:20-0500 BSA (Body Surface Area) 2.07 m2 García Rebolledo [facility] [address] Work Phone: 06-20-2020 11:20-0500 Pulse (Heart Rate) 73 /min García Rebolledo [facility] [address] Work Phone: 06-20-2020 11:20-0500 Pulse Oximetry 98 % García Ruggiero [facility] Work Phone: 07-05-2019 12:28-0400 BMI (Body Mass Index) 36.78 kg/m2 [facility] Work Phone: 07-05-2019 12:28-0400 Body weight 100.25 kg [facility] Work Phone: 07-05-2019 12:28-0400 BP Diastolic 82 mm[Hg] [facility] Work Phone: 07-05-2019 12:28-0400 BP Systolic 140 mm[Hg] [facility] Work Phone: 07-05-2019 12:28-0400 BSA (Body Surface Area) 2.06 m2 [facility] Work Phone: 07-05-2019 12:28-0400 Pulse (Heart Rate) 82 /min [facility] Work Phone: 07-05-2019 12:28-0400 Pulse Oximetry 97 % [facility] Work Phone: 06-24-2019 12:43-0500 Body Temperature 97.8 [degF] Edgar Richard [facility] Work Phone: Encounters Encounter Date Encounter Type Care Provider Facility Start: 02-11-2023 End: 02-12-2023 ambulatory [facility] Start: 01-07-2023 End: 01-07-2023 ambulatory [facility] Start: 01-07-2023 End: 01-07-2023 Office outpatient visit 15 minutes Clement Adamson MD Work Phone: [facility] Procedures Date Procedure Procedure Detail Performing Clinician Start: 02-11-2023 Bacteria identified in Urine by Culture CLEMENT ADAMSON Start: 02-11-2023 POCT UA AUTOMATED MA NUALLY RESULTED CLEMENT ADAMSON Start: 07-31-2022 Mammography Clement Moraes MD Work Phone: Start: 06-11-2022 Lipid 1996 panel - S leon or Plasma Clement Adamson MD Work Phone: Start: 07-08-2020 MG Breast screening Beth Ruggiero Start: 06-20-2020 Noninvasive colorect al cancer DNA and occult blood screening [Presence] in Stool García Ruggiero Start: 06-17-2019 MG Breast screening Roderick butler Hilary Start: 02-13-2019 Xray Knee 1 or 2 View W sourav Richard Start: 11-30-2018 Basic metabolic 1998 panel - Serum or Plasma Edgar Richard Start: 11-30-2018 CBC W Auto Different ial panel - Blood Edgar Richard Start: 11-22-2018 Xray Knee 1 or 2 View W sourav Richard Start: 03-25-2017 Colonoscopy Clement Moraes MD Work Phone: Start: 03-28-2014 Colonoscopy History of [place] er Surgery Edgar Richard Hysterectomy Edgar Galvez lge Other bilateral liga tion and division of fallopian tubes Edgar Richard Plan of Treatment Date Care Activity Detail Author Start: 12-24-2029 DTaP/Tdap/Td Vaccines (3 - Td or Tdap) DTaP/Tdap/Td Vaccines (3 - Td or Tdap) [facility] Start: 12-24-2029 Tetanus vaccination [facility] Start: 06-11-2027 Lipid panel Lipid Panel [facility] Start: 03-25-2027 Screening for malignant neoplasm of colon [facility] Start: 03-28-2024 Screening for malignant neoplasm of colon [facility] Start: 08-01-2023 Screening for malignant neoplasm of breast Mammogram [facility] Start: 08-01-2023 Screening for osteoporosis Bone Density Scan [facility] Start: 06-12-2023 Medicare Annual Wellness Visit Medicare Annual Wellness Visit (AWV) [facility] Start: 06-11-2023 Hemoglobin A1c measurement Diabetes: Hemoglobin A1C [facility] Start: 01-07-2023 End: 04-15-2023 Bacteria identified in Urine by Culture Urine Culture Microbiology Routine Abnormal urine odor Expected: 01/07/2023 (Approximate), Expires: 04/15/2023 [facility] Work Phone: Immunizations Immunization Date Immunization Notes Care Provider Katlyn gayle 01-15-2022 influenza, seasonal, injectable Clement Adamson Work Phone: [facility] [address] Work Phone: Payers Date Payer Category Payer Private Health Insurance [id number] 2016 Unknown [id number] 2014 Medicare [id number] 2014 Medicare [id number] 1949 Unknown [id number] 2.16. [id number] 1949 Unknown [id number] 2.16. [id number] 1949 Unknown [id number] 2.16. [id number] 1949 Unknown [id number] 2.16. [id number] 1949 Unknown [id number] 2.16. [id number] 1949 Unknown [id number] 2.16. [id number] 1949 Unknown [id number] 2.16. [id number] 1949 Unknown [id number] 2.16.8 [id number] 1949 Unknown [id number] 2.16.8 [id number] 1949 Unknown [id number] 2.16.84 [id number] 1949 Unknown [id number] 2.16.84 [id number] Unknown Social History Date Type Detail Facility - - [facility] Work Phone: Start: 08-12-2022 Never a smoker Never a smoker [facility] [facility] Work Phone: Start: 01-30-2016 End: 08-12-2022 Tobacco smoking status NHIS Never smoked tobacco [facility] Start: 02-07-2019 Alcohol intake Current drinke r of alcohol (finding) [facility] Start: 1950 Sex Assigned At Not on file [facility] Start: 01-30-2016 End: 08-12-2022 Tobacco use and exposure Smokeless tobacco non-user [facility] Start: 01-07-2023 Alcohol intake Defer [facility] Work Phone: Start: 08-12-2022 Tobacco use panel [facility] Work Phone: Start: 1950 Sex Assigned At Female [facility] Start: 08-04-2022 Gender identity Identifies as female gender (finding) [facility] Work Phone: Medical Equipment Procedure Code Equipment Code Equipment Origin al Text Equipment Identifier Dates Cement, Gentamic in, [employer], 40 Gm Case [id number] Start: 01-09-2019 Functional Status Date Assessment Result Facility 10-01-2020 PHQ-9 Adult Depressi on Score PHQ-9 Adult Depression Score 2 [id number] Work Phone: Mental Status Date Assessment Result Facility NEGATED: Highlighted row Cognitive function [Interpretation] Cognitive status health issues are not documented [facility] Work Phone: Clinical Notes 09-16-2021 to 01-07-2023 Clement Adamson MD - 01/07/2023 1:40 PM EDT Note Date & Type Note Facility 01-07-2023 History of Present illness Narrative Subjective Patient ID: Leslie Anderson is a 72 y.o. female who presents for Follow-up (Video visit for uti issues). HPI Presents with C/O abnormal urine odor. On Macrobid from urgent care, C&S pending. Treated recently in urgent care for UTI, concerned about the recurrence. Inquiring about the seasonal immunizations. Requesting a referral to ENT for vertigo. Assessment/Plan Diagnoses and all orders for this visit: Abnormal urine odor - Urine Culture; Future Benign paroxysmal positional vertigo of left ear - Referral to ENT; Future Discussed and recommended Influenza and RSV vaccines, COVID booster. documented in this encounter [facility] Work Phone: 06-25-2022 Chief complaint Narrative - Reported An interactive audio and video telecommunication system which permits real time communications between the patient (at the originating site) and provider (at the distant site) was utilized to provide this telehealth service.Verbal consent was requested and obtained from KARTHIK ANDERSON on this date, 06/25/2022 02:00 PM , for a telehealth visit.video visit for f/u [address] [facility] [address] Work Phone: 09-16-2021 Chief complaint Narrative - Reported An interactive audio and video telecommunication system which permits real time communications between the patient (at the originating site) and provider (at the distant site) was utilized to provide this telehealth service.Verbal consent was requested and obtained from KARTHIK ANDERSON on this date, 09/16/2021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
[2023-04-30] MEDS: Ondansetron 4 MG/2 ML Vial IV (00:38)
[2023-04-30] MEDS: Meclizine HCl 25 MG Tablet PO (00:43)
[2023-04-30 00:47] LABS: Bacteria 0 SEEN /hpf (None Seen); Mucous, Urine 0 SEEN /hpf (<or=2+); Red Blood Cells-Urine 0 SEEN /hpf (0-5)
[2023-04-30 00:51] LABS: Color, Urine Yellow (Yellow); Glucose, Dipstick Normal (Normal); Ketone-Dipstick Negative (Negative); Leukocyte Esterase-Dipstick 500 /ul (Negative); Nitrite-Dipstick Negative (Negative); Occult Blood-Urine 25 /ul (Negative); Protein-Dipstick 15 mg/dl (Negative); Specific Gravity, Urine 1.015 (1.002-1.030); Urine Bilirubin Dipstick Negative (Negative); Urine Clarity Clear (Clear); Urine Urobilinogen Normal (Normal)
[2023-04-30 00:59] LABS: Squamous Epithelial Cells - UA 0-5 SEEN /hpf (5-10); White Blood Cells 0-5 SEEN /hpf (0-5)
[2023-04-30 01:09] LABS: Absolute Lymphocyte Count 2.21 X10^3/uL (0.83-4.51); Absolute Neutrophil Count 4.7 X10^3/uL (2.0-7.7); Basophil# 0.07 X10^3/uL; Basophil% 0.9 % (0-1); Eosinophil# 0.15 X10^3/uL; Eosinophils% 1.9 % (0-5); Hematocrit 41.1 % (37-47); Hemoglobin 13.4 g/dL (12.0-15.0); Lymphocyte # 2.21 X10^3/ul (0.83-4.51); Lymphocyte % 27.8 % (19-41); Mean Corp Hgb Conc 32.6 g/dL (32-36); Mean Corpuscular Hgb 27.8 pg (27.0-32.0); Mean Corpuscular Volume 85.3 fL (81-99); Mean Platelet Vol. 10.4 fl (6.2-12.0); Monocyte# 0.77 X10^3/uL; Monocyte% 9.7 % (0-10); NRBC Flagged by Analyzer 0 % (0-5); Neutrophil % 59.1 % (47-70); Platelet Count 226 K/mm3 (150-450); RBC Distribution Width CV 13.4 % (11.6-14.6); Red Blood Count 4.82 M/mm3 (4.2-5.4)
[2023-04-30 01:16] LABS: ALB/GLOB Ratio 0.9 RATIO (0.9-2.4); AST(SGOT) 14 U/L (15-37); Alanine Aminotransfer ALT/SGPT 16 U/L (13-56); Albumin, Serum 3.6 g/dL (3.2-5.0); Alkaline Phosphatase 62 U/L (45-117); Anion Gap 7 (5-15); BUN 13 mg/dL (7-18); BUN/Creat Ratio 18.6 RATIO (10-20); Calcium,Total 9.7 mg/dL (8.5-10.1); Chloride 107 mmol/L (98-107); EST Glomerular Filtration Rate 87 mL/min (>60); Est Glom Filt Rate - Afr Amer 106 mL/min (>60); Estimated Creatinine Clearance 44.41 ml/min; Globulin 3.8 g/dL (2.2-4.2); Glucose 114 mg/dL (74-106); Potassium 3.8 mmol/L (3.5-5.1); Protein, Total 7.4 g/dL (6.4-8.2); Sodium Level 141 mmol/L (136-145)
== END 2023-04-30 02:12 | disposition home or self-care (01) ==
PROVIDERS: Emergency Provider Emergency Medicine; Visit Provider Emergency Medicine
DX: H81.399 Other peripheral vertigo, unspecified ear (principal); K57.30 Diverticulosis of large intestine without perforation or abscess without bleeding; I10 Essential (primary) hypertension; R11.0 Nausea; E66.9 Obesity, unspecified
CPT/HCPCS: 74176; 80053; 81001; 85025; 96374; 99284; J2405

== ENCOUNTER → 2023-09-15 | Outpatient (CLI) | payer MEDICARE, OTHER, SELFPAY ==
--- NOTE | 2023-09-15 10:31 | RAD_ITS ---
STUDY: X-RAY LEFT FOOT, FIFTH TOE REASON FOR EXAM: Female, 73 years old. Injury with pain. TECHNIQUE: 3 view(s) of the toe were obtained. COMPARISON: None. FINDINGS: Osteopenia. Normal visualized metatarsus. Normal metatarsophalangeal (M.T.P) joint. Flexion contracture at the PIP and DIP joints. Diffuse soft tissue swelling. RAD/Toe(s) Min 2 Views IMPRESSION: Soft tissue swelling with flexion contracture of the PIP and DIP joints. No acute osseous abnormality identified. Electronically Signed: Shun Gilliland MD at 10:54 EDT ,
== END | disposition home or self-care (01) ==
PROVIDERS: Referring Provider Physician Assistant; Visit Provider Physician Assistant
DX: S91.115A Laceration without foreign body of left lesser toe(s) without damage to nail, initial encounter (principal); X58.XXXA Exposure to other specified factors, initial encounter
CPT/HCPCS: 73660

== ENCOUNTER 2023-10-23 11:28 | Emergency (ER) | payer MEDICARE, OTHER, SELFPAY ==
[2023-10-23 11:29] VITALS: BP 153/88; PULSE 79; RESP 16; TEMP 35.8; O2SAT 100; BMI 33.9
--- NOTE | 2023-10-23 11:44 | CT_ITS ---
EXAM: CT HEAD WITHOUT INTRAVENOUS CONTRAST CLINICAL INDICATION: fall fall pain. TECHNIQUE: Multiple axial images were obtained of the head without intravenous contrast. This CT exam was performed using one or more of the following dose reduction techniques: automated exposure control, adjustment of the mA and/or kV according to patient size, and/or use of iterative reconstruction technique. COMPARISON: CT facial bones on the same date. FINDINGS: BRAIN AND EXTRA-AXIAL SPACES: Chronic lacunar type infarct in the left basal ganglia. There is non-specific periventricular hypoattenuation which is most commonly related to chronic microvascular ischemic disease in a patient of this age. There is no mass, mass-effect, or shift of the midline structures. No evidence of acute infarct or acute intracranial hemorrhage. There is no evidence of pathologic extra-axial fluid. There is no hydrocephalus. Patent basal cisterns. BONES/JOINTS: No significant abnormality. No discrete lytic or blastic abnormalities. SOFT TISSUES: Right anterior frontal scalp and periorbital soft tissue swelling. VASCULATURE: Arteriosclerosis. SINUSES: No significant findings. MASTOID AIR CELLS: No significant effusion. ORBITS: No acute findings. CT/Brain/Head without Contrast IMPRESSION: Right anterior frontal scalp and periorbital soft tissue swelling. No CT evidence of acute intracranial pathology. Electronically Signed: Richard Lim DO at 12:12 EDT ,
--- NOTE | 2023-10-23 11:44 | CT_ITS ---
EXAM: CT MAXILLOFACIAL WITHOUT INTRAVENOUS CONTRAST CLINICAL INDICATION: fall pain. TECHNIQUE: Helically acquired images were obtained of the face without intravenous contrast. This CT exam was performed using one or more of the following dose reduction techniques: automated exposure control, adjustment of the mA and/or kV according to patient size, and/or use of iterative reconstruction technique. COMPARISON: CT head on the same date. FINDINGS: BONES/JOINTS: Mild bilateral TMJ arthrosis. Degenerative changes are visualized in the cervical spine. No displaced fracture. No discrete lytic or blastic abnormalities. SOFT TISSUES: Right frontal scalp and periorbital soft tissue swelling as well as right premaxillary soft tissue swelling with likely hematoma. VASCULATURE: Vascular calcifications are present. ORBITS: No acute findings. SINUSES: Minimal mucosal thickening in the paranasal sinuses. MASTOID AIR CELLS: Normal as visualized. Clear. DENTAL: The maxilla is edentulous. There are multiple absent teeth on the mandible. No periodontal osseous erosion. NASAL CAVITY/SEPTUM: Rightward nasal septal deviation as narrowing. OROPHARYNX: Tonsillar calcifications are likely the result of chronic and/or recurrent tonsillar infection/inflammation. CT/Sinus/Facial Bone IMPRESSION: 1. Right frontal scalp and periorbital soft tissue swelling as well as right premaxillary soft tissue swelling with likely hematoma. 2. No evidence of acute maxillofacial fracture. Electronically Signed: Richard Lim DO at 12:16 EDT ,
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
[2023-10-23 12:29] VITALS: BP 132/64; PULSE 78; RESP 16; TEMP 37; O2SAT 99
== END 2023-10-23 12:32 | disposition home or self-care (01) ==
LOC: ED 12:29
PROVIDERS: Emergency Provider Emergency Medicine; Visit Provider Emergency Medicine
DX: S05.11XA Contusion of eyeball and orbital tissues, right eye, initial encounter (principal); I10 Essential (primary) hypertension; S60.416A Abrasion of right little finger, initial encounter; S09.90XA Unspecified injury of head, initial encounter; W10.1XXA Fall (on)(from) sidewalk curb, initial encounter
CPT/HCPCS: 70450; 70486; 99282

== ENCOUNTER → 2024-02-15 | Outpatient (CLI) | payer MEDICARE, OTHER, SELFPAY ==
--- OUTSIDE RECORDS SUMMARY | 2024-02-15 10:29 | XMS RPT_ITS | CCD ---
Author Organization [facility] Care Team Providers Care Executive Legal Secretary Name Role Phone Edgar Richard Unavailable Unavailable Lucie Forbes Unavailable Unavailable Qeuta Savage Unavailable Unavailable Queta Savage Unavailable Unavailable Edgar Richard Unavailable Unavailable Anne-Marie aRphael Unavailable Unavailable Lucie Forbes Unavailable Unavailable Queta Savage Unavailable Unavailable Tera Lopez Unavailable Unavailable Anne-Marie Raphael Unavailable Unavailable Queta Savage Unavailable Unavailable Clement Adamson Unavailable Unavailable Unavailable Unavailable Unavailable PROVIDER, UNKNOWN Admitting Unavailable JAKE BELTRAN Attending Unavailable Unavailable Primary Care Provider Unavailabl e Unavailable Unavailable Unavailable Primary Care Provider Unavailabl e Self, Referral Referring Unavailable Lucie Cuenca Attending Unavailable Dr. Clement Adamson Primary Care Hussain Adamson, Dr. Hill Referring Hussain Adamson, Dr. Hill Attending Hussain Adamson, Dr. Hill Primary Care Hussain Adamson, Dr. Hill Primary Care Hussain Adamson, Dr. Hill Attending Hussain Ramos, Referral Referring Unavailable Snow, Dr. Hill Referring Hussain Adamson, Dr. Hill Attending Hussain Adamson, Dr. Hill Primary Care Hussain Adamson, Dr. Hill Attending Hussain Ramos, Referral Referring Unavailable Snow, Dr. Hill Primary Care Hussain Adamson, Dr. Hill Attending Hussain vang Self, Referral Referring Ben Adamson, Dr. Hill Primary Care Hussain Adamson, Dr. Hill Attending Hussain Adamson, Dr. Hill Primary Care Hussain vang [facility] Primary Care Provider Soren Adamson MD, Clement Primary Care Provider Snow FUENTES, Clement Unavailable [phone] Snow FUENTES, Clement Unavailable [phone] Snow FUENTES, Clement Primary Care Provider SNOW, CLEMENT Primary Care Unavailabl e SARDAYLIN-ERICKSON, CLEMENT Referring Unavailabl e SARDAYLIN-ERICKSON, [facility] Primary Care Unavailabl e SARAC-ERICKSON, [facility] Primary Care Unavailabl e KETAN CALLEJAS Attending Unavailable SNOW, CLEMENT Referring Unavailabl e SARDAYLIN-ERICKSON, [facility] Primary Care Unavailabl e SARDAYLIN-ERICKSON, CLEMENT Attending Unavailabl e SARDAYLIN-ERICKSON, [facility] Primary Care Unavailabl e SARDAYLIN-ERICKSON, CLEMENT Attending Unavailabl e CHRISTEN-ERICKSON, CLEMENT Attending Unavailabl e SARAC-ERICKSON, [facility] Primary Care Unavailabl e SARDAYLIN-ERICKSON, CLEMENT Attending Unavailabl e SARAC-ERICKSON, [facility] Primary Care Unavailabl e Allergies Allergy Classification Reported Allergen(s) Allergy Type Date of Onset Reaction(s) Facility (6 sources) SEASONAL IC; Translations: [SEASONAL IC] Propensity to adverse reactions to drug (disorder) 6 [facility] Medications Current Medications Medication Drug Class(es) Dates Sig (Normalized) Sig (Original) aspirin 81 mg delayed release oral tablet (20 sources) Platelet Aggregation Inhibitor, Nonsteroidal Anti-inflammatory Drug take 1 tablet by mouth once daily aspirin EC 81 MG tablet Take 81 mg by mouth daily. Active Aspir-Low 81 MG TBEC Quantity: 0 Refills: 0 Ordered: 16-Jun-2016 DO Active azelastine hydrochloride 0.137 mg/actuat metered dose nasal spray (20 sources) Histamine-1 Receptor Antagonist Start: 09-01-2023 take 2 spray(s) nasal route twice daily azelastine (Astelin) 137 mcg (0.1 %) nasal spray Indications: Allergic rhinitis, unspecified seasonality, unspecified trigger Administer 2 sprays into each nostril 2 times a day. 30 mL 2 09/01/2023 Active Start: 09-27-2020 End: 09-01-2023 take 2 spray(s) nasal route twice daily azelastine (Astelin) 137 mcg (0.1 %) nasal spray Administer 2 sprays into each nostril 2 times a day. 09/27/2020 09/01/2023 Discontinued (Reorder) Start: 09-27-2020 take 2 spray(s) nasa l route twice daily Azelastine HCl - 0.1 % Nasal Solution USE 2 SPRAYS IN EACH NOSTRIL TWICE DAILY Quantity: 30 Refills: 3 Ordered: 02-Jan-2022 Clement Adamson MD Start : 16-Jul-2021 Active B complex-vitamin C-folic ac id (Nephro-Bonnie Rx) 1-60-300 mg-mg-mcg tablet (4 sources) take 1 tablet by matthew th once daily at mealtime B complex-vitamin C-folic acid (Nephro-Bonnie Rx) 1-60-300 mg-mg-mcg tablet Take 1 tablet by mouth once daily with a meal. Active take 1 tablet by matthew th once daily at mealtime B complex-vitamin C-folic acid (Nephro-V ite Rx) 1-60-300 mg-mg-mcg tablet Take 1 tablet by mouth once daily with a meal. 0 Active biotin 1 mg oral tablet (5 sources) biotin 1000 MCG tablet Take 500 mcg by mouth Active calcium citrate 1500 mg / cholecalciferol 200 unt oral tablet (5 sources) Vitamin D take 1 tablet by mouth once daily calcium citrate-vitamin D3 (Citracal+D) 315 mg-5 mcg (200 unit) tablet Take 1 tablet by mouth once daily. Active fluticasone propionate 0.05 mg/actuat metered dose nasal spray (20 sources) Corticosteroid Start: 07-23-2014 take 2 spray(s) nasal route once daily fluticasone (FLONASE) 50 MCG/ACT nasal inhaler USE 2 SPRAYS IN EACH NOSTRIL ONE TIME DAILY 07/23/2014 Active Flonase 50 MCG/A CT SUSP Refills: 0 Active hydroCHLOROthiazide 12.5 mg oral capsule (20 sources) Thiazide Diuretic Start: 08-02-2023 hydroCHLOROthiazide (Microzide) 12.5 mg capsule Indications: Hypertension, unspecified type TAKE 1 CAPSULE ONCE DAILY 90 capsule 1 08/02/2023 Active Start: 11-19-2022 take 1 capsule by mo uth once daily hydroCHLOROthiazide (Microzide) 12.5 mg capsule Indications: Hypertension, unspecified type Take 1 capsule (12.5 mg) by mouth once daily. 90 capsule 0 11/19/2022 Active Start: 08-21-2020 take 1 capsule by mo uth once daily hydroCHLOROthiazide 12.5 MG Oral Capsule TAKE 1 CAPSULE Daily Quantity: 90 Refills: 1 Ordered: 21-May-2022 Clement Adamson MD Start : 21-Aug-2020 Active ibandronic acid 150 mg oral tablet (5 sources) Bisphosphonate Start: 08-12-2022 End: 08-12-2023 ibandronate (Boniva) 150 mg tablet Indications: Osteoporosis, unspecified osteoporosis type, unspecified pathological fracture presence TAKE 1 TABLET EVERY 30 DAYS. TAKE IN THE MORNING WITH A FULL GLASS OF WATER ON AN EMPTY STOMACH . NO FOOD, DRINK, MEDICATIONS, OR LYING DOWN FOR 60 MINUTES AFTER 3 tablet 07/08/2023 Active loratadine 10 mg oral tablet (20 sources) take 1 tablet by mouth once daily loratadine (Claritin) 10 mg tablet Take 1 tablet (10 mg) by mouth once daily. Active LORazepam 0.5 mg oral tablet (20 sources) Benzodiazepine Start: 06-16-2016 take 1 tablet by mouth every twelve hours as needed LORazepam (ATIVAN) 0.5 MG tablet TK 1 T PO Q 12 H PRN 0 12/23/2018 Active losartan potassium 25 mg oral tablet (2 sources) Angiotensin 2 Receptor Ac Start: 09-01-2023 take 1 tablet by mouth once daily losartan (Cozaar) 25 mg tablet Indications: Essential hypertension Take 1 tablet (25 mg) by mouth once daily. 90 tablet 1 09/01/2023 Active lovastatin 20 mg oral tablet (20 sources) HMG-CoA Reductase Inhibitor Start: 09-30-2015 take 1 tablet by mouth once daily lovastatin (MEVACOR) 20 MG tablet TAKE ONE TABLET BY MOUTH ONE TIME A DAY 09/30/2015 Active Magnesium (5 sources) Magnesium 400 MG CAPS Take 200 mg by mouth Active Magnesium 400 MG CAPS Take 200 mg by mouth 0 Active magnesium citrate 100 mg oral tablet (5 sources) take 2 tablets by mo uth once daily magnesium citrate 100 mg tablet Take 200 mg by mouth once daily. Active Misc Natural Products (OSTEO BI-FLEX/5-LOXIN ADVANCED) TABS (5 sources) Misc Natural Pro ducts (OSTEO BI-FLEX/5-LOXIN ADVANCED) TABS Take by mouth. Active Misc Natural Pro ducts (OSTEO BI-FLEX/5-LOXIN ADVANCED) TABS Take by mouth. 0 Active Multiple Vitamins-Minerals (THERAPEUTIC MULTIVIT/MINERAL) TABS (5 sources) take 1 tablet by mouth once daily Multiple Vitamins-Minerals (THERAPEUTIC MULTIVIT/MINERAL) TABS Take 1 tablet by mouth daily Active take 1 tablet by mouth once corona y Multiple Vitamins-Minerals (THERAPEUTIC MULTIVIT/MINERAL) TABS Take 1 tablet by mouth daily 0 Active nadolol 20 mg oral tablet (20 sources) beta-Adrenergic Ac Start: 09-18-2020 take 0.5 tablet by mouth once daily Nadolol 40 MG Oral Tablet take 1/2 tablet by mouth daily Quantity: 90 Refills: 1 Ordered: 10-Dec-2020 Clement Adamson MD Start : 18-Sep-2020 Active Start: 09-18-2020 take 1 tablet by matthew once daily Nadolol 40 MG Oral Tablet TAKE 1 TABLET BY MOUTH DAILY Quantity: 90 Refills: 1 Ordered: 18-Sep-2020 Clement Adamson MD Start : 18-Sep-2020 Active Start: 02-02-2017 nadolol (CORGA RD) 20 MG tablet 01/01/2019 Active omeprazole 10 mg delayed release oral capsule (20 sources) Proton Pump Inhibitor Start: 01-07-2016 take 1 tablet by mouth once daily omeprazole (PRILOSEC) 10 MG capsule Indications: Gastroesophageal reflux disease, esophagitis presence not specified 1 TAB PO ONE TIME DAILY 90 Capsule 3 01/07/2016 Active rosuvastatin calcium 20 mg oral tablet (20 sources) HMG-CoA Reductase Inhibitor Start: 07-09-2023 take 1 tablet by mouth once daily at bedtime rosuvastatin (Crestor) 20 mg tablet Indications: Hyperlipidemia, unspecified hyperlipidemia type Take 1 tablet (20 mg) by mouth once daily at bedtime. 90 tablet 07/09/2023 Active Start: 09-18-2020 take 1 tablet by matthew once daily at bedtime rosuvastatin (Crestor) 20 mg tablet Indications: Hyperlipidemia, unspecified hyperlipidemia type Take 1 tablet (20 mg) by mouth once daily at bedtime. 90 tablet 2 08/21/2022 Active triamcinolone acetonide 0.001 mg/mg topical ointment (4 sources) Corticosteroid Start: 02-03-2016 triamcinolone 0.1 % ointment Indications: Rash and nonspecific skin eruption Apply topically 2 times daily. Apply thin layer to affected area. 15 g 0 02/03/2016 Active ubidecarenone (COENZYME Q10, BULK, MISC) (5 sources) ubidecarenone (C OENZYME Q10, BULK, MISC) Take 100 mg by mouth once daily. Active ubidecarenone (C OENZYME Q10, BULK, MISC) Take 100 mg by mouth once daily. 0 Active Completed/Discontinued Medications Medication Drug [...] Edgar Richard MD Start : 24-Apr-2019 Active cephalexin 500 mg oral capsule (17 sources) Cephalosporin Antibacterial Start: 08-03-2017 take 1 capsule by mouth three times daily Cephalexin 500 MG Oral Capsule TAKE 1 CAPSULE 3 TIMES DAILY UNTIL GONE. Quantity: 30 Refills: 0 Queta Savage MD Start : 03-Aug-2017 Active cholecalciferol 0.05 mg oral tablet (20 sources) Vitamin D Start: 09-18-2020 take 1 tablet by mouth once daily Vitamin D3 50 MCG (2000 UT) Oral Tablet Vitamin D3 2000 IU take one daily Quantity: 30 Refills: 3 Ordered: 18-Sep-2020 Clement Adamson MD Start : 18-Sep-2020 Active Cholecalciferol (VITAMIN D) 2000 UNITS CAPS Take by mouth Active Vitamin D3 250 M CG (27136 UT) Oral Capsule Quantity: 0 Refills: 0 Ordered: 16-Jun-2016 DO Active Vitamin D3 08290 UNIT Oral Capsule Refills: 0 Active cocoa butter 0.884 mg/mg / phenylephrine hydrochloride 0.0025 mg/mg rectal suppository (10 sources) alpha-1 Adrenergic Agonist Start: 06-13-2021 Preparation H 0.25-88.44 % Rectal Suppository insert 1 RS every 12 hours PRN Quantity: 1 Refills: 0 Ordered: 13-Jun-2021 Clement Adamson MD Start : 13-Jun-2021 Active cyclobenzaprine hydrochloride 5 mg oral tablet (11 sources) Muscle Relaxant Start: 11-15-2018 take 1 tablet by mouth three times daily as needed Cyclobenzaprine HCl - 5 MG Oral Tablet TAKE 1 TABLET 3 TIMES DAILY NEEDED. Quantity: 20 Refills: 0 Lucie Forbes PA-C Start : 15-Nov-2018 Active DULoxetine 30 mg delayed release oral capsule (4 sources) Serotonin and Norepinephrine Reuptake Inhibitor Start: 04-08-2022 take 1 capsule by mouth once daily, then take 2 capsules by mouth once daily DULoxetine HCl - 30 MG Oral Capsule Delayed Release Particles 1 capsule daily for 3 weeks then 2 capsules daily Quantity: 180 Refills: 1 Ordered: 08-Apr-2022 Clement Adamson MD Start : 08-Apr-2022 Active hydrocortisone acetate 30 mg rectal suppository (12 sources) Corticosteroid Start: 06-11-2021 Proctocort 30 MG Rectal Suppository INSERT 1 SUPPOSITORY RECTALLY 2 TIMES DAILY. Quantity: 1 Refills: 0 Ordered: 11-Jun-2021 Clement Adamson MD Start : 11-Jun-2021 Active hydrOXYzine hydrochloride 25 mg oral tablet (3 sources) Antihistamine Start: 08-21-2020 take 1 tablet by mouth twice daily as needed for anxiety hydrOXYzine HCl - 25 MG Oral Tablet TAKE 1 TABLET 2 TIMES DAILY NEEDED FOR ANXIETY/STRESS RELATED TO AIR TRAVEL Quantity: 30 Refills: 1 Ordered: 21-Aug-2020 Queta Mata MD Start : 21-Aug-2020 Active meclizine hydrochloride 12.5 mg oral tablet (12 sources) Antiemetic Start: 09-16-2021 take 1 tablet by mouth three times daily as needed Meclizine HCl - 12.5 MG Oral Tablet Take 1/2- 1 tablet by mouth three times a day as needed Quantity: 30 Refills: 0 Ordered: 11-Jun-2022 Clement Adamson MD Start : 16-Sep-2021 Active mineral oil 0.14 mg/mg / petrolatum 0.749 mg/mg / phenylephrine hydrochloride 0.0025 mg/mg rectal ointment (13 sources) alpha-1 Adrenergic Agonist Start: 06-13-2021 Preparation H 0.25-14-74.9 % Rectal Ointment APPLY TOPICALLY TWICE DAILY NEEDED Quantity: 1 Refills: 0 Ordered: 13-Jun-2021 Clement Adamson MD Start : 13-Jun-2021 Active Multi-Vitamin Oral Tablet (20 sources) Multi-Vitamin Or al Tablet Refills: 0 DO Active Multi-Vitamin Or al Tablet Refills: 0 Active Multi-Vitamin Oral Tablet (20 sources) Multi-Vitamin Or al Tablet Quantity: 0 Refills: 0 Ordered: 16-Jun-2016 DO Active nitrofurantoin, macrocrystals 25 mg / nitrofurantoin, monohydrate 75 mg oral capsule (2 sources) Nitrofuran Antibacterial Start: 020 take 1 capsule by mouth twice daily Nitrofurantoin Monohyd Macro 100 MG Oral Capsule TAKE 1 CAPSULE TWICE DAILY UNTIL GONE. Quantity: 10 Refills: 0 Anne-Marie Raphael DO Start : 24-Jun-2019 Active sulfamethoxazole 800 mg / trimethoprim 160 mg oral tablet (11 sources) Dihydrofolate Reductase Inhibitor Antibacterial, Sulfonamide Antimicrobial Start: 021 take 1 tablet by mouth every twelve hours Sulfamethoxazole-Trim ethoprim 800-160 MG Oral Tablet TAKE 1 TABLET BY MOUTH EVERY 12 HOURS FOR 3 DAYS Quantity: 6 Refills: 0 Ordered: 25-Dec-2020 DO Start : 25-Dec-2020 Active vitamin b12 0.5 mg oral tablet (20 sources) Vitamin B12 Vitamin B-12 500 MCG Oral Tablet Quantity: 0 Refills: 0 Ordered: 16-Jun-2016 DO Active Vitamin B-12 500 MCG Oral Tablet Refills: 0 DO Active Problems Active Problems Problem Classification Problem Date Documented Date Episodic/Chronic Anxiety disorders (20 sources) Anxiety disorder; Translations: [Panic disorder] Chronic Cataract (5 sources) Nuclear senile cataract; Translations: [Age-related nuclear cataract, unspecified eye] Onset: 02-15-2013 11-14-2015 Chronic Disorders of lipid metabolism (20 sources) Hyperlipidemia; Translations: [Other and unspecified hyperlipidemia] Onset: 02-23-2006 11-14-2015 Chronic Diverticulosis and diverticulitis (5 sources) Diverticulosis of large intestine; Translations: [Diverticulosis of large intestine without perforation or abscess without bleeding] Onset: 03-28-2014 11-14-2015 Chronic Esophageal disorders (20 sources) Gastroesophageal reflux disease; Translations: [Esophageal reflux] Chronic Essential hypertension (20 sources) Essential hypertension; Translations: [Unspecified essential hypertension] Onset: 01-23-2023 09-01-2023 Chronic Fracture of upper limb (20 sources) Fracture of phalanx of finger; Translations: [Closed fracture of phalanx or phalanges of hand, unspecified] Episodic Heart valve disorders (2 sources) Nonrheumatic aortic valve disorder, unspecified; Translations: [Nonrheumatic aortic valve disorder, unspecified] Onset: 12-13-2023 Chronic Nonmalignant breast conditions (20 sources) Lesion of breast; Translations: [Unspecified breast disorder] Episodic Nutritional deficiencies (20 sources) Vitamin D deficiency; Translations: [Unspecified vitamin D deficiency] Chronic Osteoarthritis (20 sources) Primary gonarthrosis, bilateral; Translations: [Osteoarthrosis, localized, primary, lower leg] Onset: 08-27-2009 11-14-2015 Chronic Osteoporosis (1 source) Age-related osteoporosis without current pathological fracture; Translations: [...] [Pain in limb] Episodic Other eye disorders (5 sources) Vitreous detachment; Translations: [Vitreous degeneration, unspecified [...] index 30+ - obesity; Translations: [Obesity, unspecified] Onset: 09-01-2023 09-01-2023 Chronic Other nutritional; endocrine; and metabolic disorders (15 sources) Obesity; Translations: [Obesity, unspecified] Chronic Other screening for suspected conditions (not mental disorders or infectious disease) (20 sources) Mammographic breast density; Translations: [Other (abnormal) findings on radiological examination of breast] Onset: 07-21-2021 Episodic Other skin disorders (9 sources) Acquired keratoderma; 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, acquired] Episodic Other upper respiratory disease (20 sources) Allergic rhinitis; Translations: [Allergic rhinitis, cause unspecified] Onset: 07-16-2004 06-12-2021 Chronic Other upper respiratory disease (5 sources) Chronic rhinitis; Translations: [Chronic rhinitis] Onset: 10-28-2006 11-14-2015 Chronic Other upper respiratory disease (2 sources) Allergic rhinitis, unspecified; Translations: [Allergic rhinitis, unspecified] Onset: 09-01-2023 Chronic Residual codes; unclassified (20 sources) At [...] Chronic neck pain; Translations: [Neck pain] Episodic Past or Other Problems Problem Classification Problem Date Documented Da te Episodic/Chronic Conditions associated with dizziness or vertigo (12 sources) Benign paroxysmal positional vertigo; Translations: [Benign paroxysmal positional vertigo] Onset: 11-03-2022 01-07-2023 Episodic Diabetes mellitus without complication (20 sources) Impaired fasting glycemia; Translations: [Impaired fasting glucose] Onset: 02-04-2014 11-14-2015 Episodic Genitourinary symptoms and ill-defined conditions (5 sources) Abnormal urine odor; Translations: [Unspecified abnormal findings in urine] Onset: 01-07-2023 01-07-2023 Episodic Hemorrhoids (20 sources) Hemorrhoids; Translations: [Unspecified hemorrhoids without mention of complication] Onset: 03-28-2014 11-14-2015 Episodic Immunizations and screening for infectious disease (20 sources) Patient encounter status; Translations: [Other specified vaccination] Onset: 03-28-2014 06-12-2021 Episodic Other and unspecified benign neoplasm (5 sources) Senile angioma; Translations: [Hemangioma of skin and subcutaneous tissue] Onset: 02-03-2016 02-03-2016 Episodic Other bone disease and musculoskeletal deformities (2 sources) Chondrocostal junction syndrome [Tietze]; Translations: [Chondrocostal junction syndrome (tietze)] Onset: 04-30-2023 Episodic Other lower respiratory disease (12 sources) Lung mass; Translations: [Lung nodule] Episodic Other lower respiratory disease (20 sources) H/O: respiratory disease; Translations: [Personal history of other diseases of respiratory system] Resolved: 05-15-2019 Episodic Other nervous system disorders (5 sources) Loss of sense of smell; Translations: [Anosmia] Onset: 10-28-2006 11-14-2015 Episodic Other nutritional; endocrine; and metabolic disorders (5 sources) Overweight; Translations: [Overweight] Onset: 06-05-2004 06-12-2021 Episodic Other upper respiratory infections (14 sources) Acute sinusitis; Translations: [Acute sinusitis] Episodic Unclassified (20 sources) Patient encounter status; Translations: [Aftercare following right knee joint replacement surgery] Unclassified (13 sources) Patient encounter status; Translations: [Aftercare following left knee joint replacement surgery] Unclassified (4 sources) Onset: 04-30-2023 Resolved: 09-01-2023 04-30-2023 Urinary tract infections (20 sources) Bacterial urinary infection; Translations: [Urinary tract infection, site not specified] Onset: 04-30-2023 Episodic NEGATED: Highlighted row has not occurred!Residual codes; unclassified (20 sources) Disease Episodic Results Test Name Value Interpretation Reference Range Facility CT CARDIAC SCORING WO IV CON TRASTon 09-03-2023 CT CARDIAC SCORING WO IV CONTRAST Interpreted By: Bill Lacy and Tavana Shahrzad STUDY: CT CARDIAC SCORING WO IV CONTRAST; 09/03/2023 7:17 am INDICATION: Signs/Symptoms:.. COMPARISON: Chest CT 02/05/2017 ACCESSION NUMBER(S): [id number] ORDERING CLINICIAN: CLEMENT ADAMSON TECHNIQUE: Using prospective ECG gating, limited CT scan of the chest for evaluation of coronary arteries was performed without intravenous contrast. Coronary calcium scoring was performed according to the method of Agatston. FINDINGS: The score and distribution of calcium in the coronary arteries is as follows: LM: 0. LAD: 0. LCx: 0. RCA: 0. Total: 0. The visualized segments of the lungs are normally expanded. A 4 mm nodule is noted in the left lower lobe along the major fissure, unchanged dating back to 02/05/2017, consistent with a benign intrapulmonary lymph node (series 3, image 11). Additional paramediastinal nodular densities are unchanged and are consistent with benign intrapulmonary lymph nodes. The visualized mid/lower ascending thoracic aorta measures 3.6 cm in diameter. Tortuous descending segment partially imaged. The heart is normal in size. No significant pericardial effusion is present. Moderatecalcifications of the aortic valve noted. Correlate with clinical concerns for aortic stenosis. No gross evidence of mediastinal or hilar lymphadenopathy is identified. Moderate hiatal hernia is noted. Otherwise, the visualized subdiaphragmatic structures appear grossly intact. IMPRESSION: 1. Coronary artery calcium score of 0*. 2. Moderatecalcifications of the aortic valve noted. Correlate with clinical concerns for aortic stenosis. 3. Moderate hiatal hernia. 4. Additional findings as above. *Coronary artery calcium scoring may be helpful in predicting the risk for future coronary heart disease events. According to the [employer] Clinical Expert Consensus Task Force, such testing provides important prognostic information in patients with more than one coronary heart disease risk factor. The coronary artery calcium score correlates with the annual risk of a non-fatal myocardial infarction or coronary heart disease . Coronary artery score Annual Risk 0-99 0.4% 100-399 1.3% >400 2.4% These three breakpoints correspond to lower, intermediate and high risk states for future coronary events. Such information should be used, along with appropriate clinical judgment, to make decisions regarding the intensity of risk factor management strategies to treat blood lipids and to modify other non-lipid coronary risk factors. Reference: Marcellus P et al. Circulation. 2007; 115:402-426 I personally reviewed the images/study and I agree with the findings as stated. This study was interpreted at [place], [place]. MACRO: None Signed by: Bill Lacy 09/06/2023 5:30 PM Dictation workstation: [id number] Normal [facility] Albumin/Creatinineon 024 Albumin/Creatinine DL <= 20 mg/L (U) [Mass ratio] Normal [facility] Comment on above: Result Comment: One or more analytes used in this calculation is outside of the analytical measurement range. Calculation cannot be performed. Performed By: #### 1 [id number] #### KARLENE Delarosa ([id number]) [facility] ([facility]) [address] [place] [id number] Albumin/Creatinine DL <= 20 mg/L (U) [Mass ratio]on 09-01-2023 Albumin DL <= 20 mg/L (U) [Mass/Vol] mg/dL Normal Not established [facility] Comment on above: Performed By: #### 1 [id number] #### KARLENE Delarosa ([id number]) [facility] ([facility]) [address] [place], [place] [id number] Creatinine (U) [Mass/Vol] 32.8 mg/dL Normal 20.0-320.0 [facility] Comment on above: Performed By: #### 1 [id number] #### KARLENE Delarosa ([id number]) [facility] ([facility]) [address] [place] [address] Bacteria identifiedon 2023 Bacteria identified Cx Nom (U) Test: Urine Culture Specimen Source: Clean Catch/Voided Specimen Type: Urine Specimen Date: 09/01/20231114 Result Date: 09/02/20231103 Result Status: Final result Abnormal: No Resulting Lab: [facility] [address] [place] [address] CULTURE No significant growth Normal [facility] Comment on above: Performed By: #### 6 30-4 #### KARLENE Delarosa ([id number]) [facility] ([facility]) [address] [place], [place] [id number] CBC panel Auto (Bld)on 08-31 Erythrocyte distribution width (RBC) [Ratio] 14.4 % Normal 11.5-14.5 [facility] Comment on above: Performed By: #### 5 8410-2 #### KARLENE Delarosa ([id number]) [facility] ([facility]) [address] [place], [place] [address] Hematocrit (Bld) [Volume fraction] 44.1 % Normal 36.0-46.0 [facility] Comment on above: Performed By: #### 5 8410-2 #### KARLENE Delarosa ([id number]) [facility] ([facility]) [address] [place], [place] [address] Hemoglobin (Bld) [Mass/Vol] 13.9 g/dL Normal 12.0-16.0 [facility] Comment on above: Performed By: #### 5 8410-2 #### KARLENE Delarosa ([id number]) [facility] ([facility]) [address] [place] [address] MCH (RBC) [Entitic mass] 26.5 pg Normal 26.0-34.0 [facility] Comment on above: Performed By: #### 5 8410-2 #### KARLENE Delarosa ([id number]) [facility] ([facility]) [address] [place] [address] MCHC (RBC) [Mass/Vol] 31.5 g/dL Low 32.0-36.0 [facility] Comment on above: Performed By: #### 5 8410-2 #### KARLENE Delarosa ([id number]) [facility] ([facility]) [address] [place] [address]651 MCV (RBC) [Entitic vol] 84 fL Normal 80-100 [facility] Comment on above: Performed By: #### 5 8410-2 #### KARLENE Delarosa ([id number]) [facility] ([facility]) [address] [place] [address] 21618 Nucleated RBC/100 WBC (Bld) [Ratio] 0.0 /100 WBCs Normal 0.0-0.0 [facility] Comment on above: Performed By: #### 5 8410-2 #### KARLENE Delarosa ([id number]) [facility] ([facility]) [address] [place] [address] 45865 Platelets (Bld) [#/Vol] 248 x10*3/uL Normal 150-450 [facility] Comment on above: Performed By: #### 5 8410-2 #### KARLENE Delarosa ([id number]) [facility] ([facility]) [address] [place] [address] 12906 RBC (Bld) [#/Vol] 5.25 x10*6/uL High 4.00-5.20 [facility] Comment on above: Performed By: #### 5 8410-2 #### KARLENE Delarosa ([id number]) [facility] ([facility]) [address] [place] [address]2313 WBC (Bld) [#/Vol] 5.8 x10*3/uL Normal 4.4-11.3 [facility] Comment on above: Performed By: #### 5 8410-2 #### KARLENE Delarosa ([id number]) [facility] ([facility]) [address] [place] [address] Comprehensive metabolic 2000 panelon 09-01-2023 Albumin BCP dye [Mass/Vol] 4.3 g/dL Normal 3.4-5.0 [facility] Comment on above: Performed By: #### 2 4323-8 #### KARLENE Delarosa ([id number]) [facility] ([facility]) [address] [place], [place] [address] ALP [Catalytic activity/Vol] 51 U/L Normal 33-136 [facility] Comment on above: Performed By: #### 2 4323-8 #### KARLENE Delarosa ([id number]) [facility] ([facility]) [address] [place] [address] 49562 ALT With P-5'-P [Catalytic activity/Vol] 12 U/L Normal 7-45 [facility] Comment on above: Result Comment: Kinsey ents treated with Sulfasalazine may generate falsely decreased results for ALT. Performed By: #### 2 4323-8 #### KARLENE Delarosa ([id number]) [facility] ([facility]) [id number] [place] [address]84 Anion gap [Moles/Vol] 12 mmol/L Normal 10-20 [facility] Comment on above: Performed By: #### 2 4323-8 #### KARLENE Delarosa ([id number]) [facility] ([facility]) [address] [place] [address] 70661 AST With P-5'-P [Catalytic activity/Vol] 21 U/L Normal 9-39 [facility] Comment on above: Performed By: #### 2 4323-8 #### KARLENE Delarosa ([id number]) [facility] ([facility]) [address] [place] [address]37 Bilirubin [Mass/Vol] 0.6 mg/dL Normal 0.0-1.2 [facility] Comment on above: Performed By: #### 2 4323-8 #### KARLENE BULLOCK L ([id number]) [facility] ([facility]) [address] [place] [address] Calcium [Mass/Vol] 9.6 mg/dL Normal 8.6-10.6 [facility] Comment on above: Performed By: #### 2 4323-8 #### KARLENE BULLOCK L ([id number]) [facility] ([facility]) [address] [place] [address] Chloride [Moles/Vol] 104 mmol/L Normal 98-107 [facility] Comment on above: Performed By: #### 2 4323-8 #### KARLENE BULLOCK L ([id number]) [facility] ([facility]) [address] [place] [address] CO2 [Moles/Vol] 28 mmol/L Normal 21-32 [facility] Comment on above: Performed By: #### 2 4323-8 #### KARLENE BULLOCK L ([id number]) [facility] ([facility]) [address] [place] [address] Creatinine [Mass/Vol] 0.60 mg/dL Normal 0.50-1.05 [facility] Comment on above: Performed By: #### 2 4323-8 #### KARLENE BULLOCK L ([id number]) [facility] ([facility]) [address] [place] [address]94 GFR/1.73 sq M.predicted MDRD (S/P/Bld) [Vol rate/Area] mL/min/{1.73_m2} Normal >60 [facility] Comment on above: Result Comment: Calc ulations of estimated GFR are performed using the 2020 CKD-EPI Study Refit equation without the race variable for the IDMS-Traceable creatinine methods. https://jasn.asnjournals.org/content//ASN.539325321 8 Performed By: #### 2 4323-8 #### KARLENE Delarosa ([id number]) [facility] ([facility]) [address] [place] [address]605 Glucose [Mass/Vol] 107 mg/dL High 74-99 [facility] Comment on above: Performed By: #### 2 4323-8 #### KARLENE Delarosa ([id number]) [facility] ([facility]) [address] [place] [address]4787 Potassium [Moles/Vol] 4.7 mmol/L Normal 3.5-5.3 [facility] Comment on above: Performed By: #### 2 4323-8 #### KARLENE Delarosa ([id number]) [facility] ([facility]) [address] [place] [address] 25553 Protein [Mass/Vol] 7.2 g/dL Normal 6.4-8.2 [facility] Comment on above: Performed By: #### 2 4323-8 #### KARLENE Delarosa ([id number]) [facility] ([facility]) [address] [place] [address] 96453 Sodium [Moles/Vol] 139 mmol/L Normal 136-145 [facility] Comment on above: Performed By: #### 2 4323-8 #### KARLENE Delarosa ([id number]) [facility] ([facility]) [address] [place] [address] 53538 Urea nitrogen [Mass/Vol] 12 mg/dL Normal 6-23 [facility] Comment on above: Performed By: #### 2 4323-8 #### KARLENE Delarosa ([id number]) [facility] ([facility]) [address] [place] [address] 30898 HbA1c (Bld) [Mass fraction]o n 09-01-2023 Average glucose Estimated from glycated hemoglobin (Bld) [Mass/Vol] 117 mg/dL Normal Not Established [facility] Comment on above: Order Comment: Diagn osis of Diabetes-Adults Non-Diabetic: < or = 5.6% Increased risk for developing diabetes: 5.7-6.4% Diagnostic of diabetes: > or = 6.5% Monitoring of Diabetes Age (y)....................... Therapeutic Goal (%) Adults: >18.........................<7.0 Pediatrics: 13-18...................<7.5 Pediatrics: 7-12....................<8.0 Pediatrics: 0-6..................... 7.5-8.5 [place] [employer]. Diabetes Care 33(S1), Apr 2009 Performed By: #### 4 548-4 #### KARLENE Delarosa ([id number]) [facility] ([facility]) [address] [place] [address] Hemoglobin A1c/Hemoglobin.to viridiana 09-01-2023 HbA1c (Bld) [Mass fraction] 5.7 % High see below [facility] Comment on above: Order Comment: Diagn osis of Diabetes-Adults Non-Diabetic: < or = 5.6% Increased risk for developing diabetes: 5.7-6.4% Diagnostic of diabetes: > or = 6.5% Monitoring of Diabetes Age (y)....................... Therapeutic Goal (%) Adults: >18.........................<7.0 Pediatrics: 13-18...................<7.5 Pediatrics: 7-12....................<8.0 Pediatrics: 0-6..................... 7.5-8.5 [place] [employer]. Diabetes Care 33(S1), Apr 2009 Performed By: #### 4 548-4 #### KARLENE Delarosa ([id number]) [facility] ([facility]) [address] [place] [address] Hepatitis C virus Abon 08-31 HCV Ab Ql (S) Non-Reactive Normal Nonreactive [facility] Comment on above: Result Comment: Resu lts from patients taking biotin supplements or receiving high-dose biotin therapy should be interpreted with caution due to possible interference with this test. Providers may contact their local laboratory for further information. Performed By: #### 1 6128-1 #### KARLENE Delarosa ([id number]) [facility] ([facility]) [address] [place] [address] 30758 Lipid 1996 panelon 4 Cholesterol [Mass/Vol] 167 mg/dL Normal 0-199 [facility] Comment on above: Result Comment: Age Desirable Borderline High High 0-19 Y 0 - 169 170 - 199 >/= 200 20-24 Y 0 - 189 190 - 224 >/= 225 >24 Y 0 - 199 200 - 239 >/= 240 All ranges are based on fasting samples. Specific therapeutic targets will vary based on patient-specific cardiac risk. Pediatric guidelines reference:Pediatrics 2011, 128(S5).Adult guidelines reference: NCEP ATPIII Guidelines,MAGED 2001, 258:2486-97 Venipuncture immediately after or during the administration of Metamizole may lead to falsely low results. Testing should be performed immediately prior to Metamizole dosing. Performed By: #### 2 4331-1 #### KARLENE Delarosa ([id number]) [facility] ([facility]) [address] [place] [address] Cholesterol in HDL [Mass/Vol] 57.9 mg/dL Normal [facility] Comment on above: Result Comment: Age Very Low Low Normal High 0-19 Y < 35 < 40 40-45 ---- 20-24 Y ---- < 40 >45 ---- >24 Y ---- < 40 40-60 >60 Performed By: #### 2 4331-1 #### KARLENE Delarosa ([id number]) [facility] ([facility]) [address] [place] [address] Cholesterol in LDL [Mass/Vol] 89 mg/dL Normal <=99 [facility] Comment on above: Result Comment: Near Borderline AGE Desirable Optimal High High Very High 0-19 Y 0 - 109 --- 110-129 >/= 130 ---- 20-24 Y 0 - 119 --- 120-159 >/= 160 ---- >24 Y 0 - 99 100-129 130-159 160-189 >/=190 Performed By: #### 2 4331-1 #### KARLENE Delarosa ([id number]) [facility] ([facility]) [address] [place] [address] Cholesterol in VLDL [Mass/Vol] 20 mg/dL Normal 0-40 [facility] Comment on above: Performed By: #### 2 4331-1 #### KARLENE Delarosa ([id number]) [facility] ([facility]) [address] [place] [address] 14436 CHOLESTEROL/HDL RATIO 2.9 Normal [facility] Comment on above: Result Comment: Ref Values Desirable < 3.4 High Risk > 5.0 Performed By: #### 2 4331-1 #### KARLENE Delarosa ([id number]) [facility] ([facility]) [address] [place] [address] 61005 NON HDL CHOLESTEROL 109 mg/dL Normal 0-149 [facility] Comment on above: Result Comment: Age Desirable Borderline High High Very High 0-19 Y 0 - 119 120 - 144 >/= 145 >/= 160 20-24 Y 0 - 149 150 - 189 >/= 190 ---- >24 Y 30 mg/dL above LDL Cholesterol goal Performed By: #### 2 4331-1 #### KARLENE Delarosa ([id number]) [facility] ([facility]) [address] [place] [address] 24830 Triglyceride [Mass/Vol] 101 mg/dL Normal 0-149 [facility] Comment on above: Result Comment: Age Desirable Borderline High High Very High 0 D-90 D 19 - 174 ---- ---- ---- 91 D- 9 Y 0 - 74 75 - 99 >/= 100 ---- 10-19 Y 0 - 89 90 - 129 >/= 130 ---- 20-24 Y 0 - 114 115 - 149 >/= 150 ---- >24 Y 0 - 149 150 - 199 200- 499 >/= 500 Venipuncture immediately after or during the administration of Metamizole may lead to falsely low results. Testing should be performed immediately prior to Metamizole dosing. Performed By: #### 2 4331-1 #### KARLENE Delarosa ([id number]) [facility] ([facility]) [address] [place] [address] Thyrotropinon 09-01-2023 TSH Qn 3.04 m[IU]/L Normal 0.44-3.98 [facility] Comment on above: Order Comment: TSH t esting is performed using different testing methodology at [facility] than at other [facility]. Direct result comparisons should only be made within the same method. Performed By: #### 3 016-3 #### KARLENE Delarosa ([id number]) [facility] ([facility]) [address] [place] [address] BI MAMMO BILATERAL SCREENING TOMOSYNTHESISon 08-02-2023 BI MAMMO BILATERAL SCREENING TOMOSYNTHESIS Interpreted By: Rainer Cooper, STUDY: BI MAMMO BILATERAL SCREENING TOMOSYNTHESIS; 08/02/2023 8:56 am ACCESSION NUMBER(S): [id number] ORDERING CLINICIAN: CLEMENT ADAMSON INDICATION: Screening. COMPARISON: Digital mammogram dated 07/31/2022 FINDINGS: CC and MLO 2D digital mammograms and digital breast tomosynthesis images were obtained of the bilateral breasts. 3-D volume images were reconstructed in 4 views at an independent workstation as 1 mm slices through the breasts in both the CC and MLO projections. Density: The breast tissue is heterogeneously dense, which may obscure small masses. No discrete mass or focal asymmetry is identified. No suspicious microcalcifications or foci of architectural distortion are seen. There has been no significant change. This study was interpreted with CAD. IMPRESSION: No mammographic evidence of malignancy. Based on the Tyrer-Cuzick model for breast cancer risk assessment, the patient's lifetime risk of breast cancer is 7.3%. Patients with over a 20% lifetime risk of developing breast cancer may benefit from additional screening with breast MRI or ultrasound. Please note that this estimate is based on responses provided on the patient questionnaire. For more information regarding high risk consultation, please call [phone]. BI-RADS CATEGORY: BI-RADS Category: 1 Negative. Recommendation: Routine Screening Mammogram in 1 Year. Recommended Date: 1 Year. Laterality: Bilateral. MACRO: None Signed by: Rainer Cooper 08/02/2023 10:32 AM Dictation workstation: [id number] [facility] DBT Breast - bilateralon No mammographic evid ence of malignancy. Based on the Tyrer-Cuzick model for breast cancer risk assessment, the patient's lifetime risk of breast cancer is 7.3%. Patients with over a 20% lifetime risk of developing breast cancer may benefit from additional screening with breast MRI or ultrasound. Please note that this estimate is based on responses provided on the patient questionnaire. For more information regarding high risk consultation, please call [phone]. BI-RADS CATEGORY: BI-RADS Category: 1 Negative. Recommendation: Routine Screening Mammogram in 1 Year. Recommended Date: 1 Year. Laterality: Bilateral. MACRO: None Signed by: Rainer Cooper 08/02/2023 10:32 AM Dictation workstation: [id number] [facility] Interpreted By: Rainer Maradiaga, STUDY: BI MAMMO BILATERAL SCREENING TOMOSYNTHESIS; 08/02/2023 8:56 am ACCESSION NUMBER(S): [id number] ORDERING CLINICIAN: CLEMENT ADAMSON INDICATION: Screening. COMPARISON: Digital mammogram dated 07/31/2022 FINDINGS: CC and MLO 2D digital mammograms and digital breast tomosynthesis images were obtained of the bilateral breasts. 3-D volume images were reconstructed in 4 views at an independent workstation as 1 mm slices through the breasts in both the CC and MLO projections. Density: The breast tissue is heterogeneously dense, which may obscure small masses. No discrete mass or focal asymmetry is identified. No suspicious microcalcifications or foci of architectural distortion are seen. There has been no significant change. This study was interpreted with CAD. MMODAL Rainer Cooper MD - 08/02/2023 Interpreted By: Rainer Cooper, STUDY: BI MAMMO BILATERAL SCREENING TOMOSYNTHESIS; 08/02/2023 8:56 am ACCESSION NUMBER(S): [id number] ORDERING CLINICIAN: CLEMENT ADAMSON INDICATION: Screening. COMPARISON: Digital mammogram dated 07/31/2022 FINDINGS: CC and MLO 2D digital mammograms and digital breast tomosynthesis images were obtained of the bilateral breasts. 3-D volume images were reconstructed in 4 views at an independent workstation as 1 mm slices through the breasts in both the CC and MLO projections. Density: The breast tissue is heterogeneously dense, which may obscure small masses. No discrete mass or focal asymmetry is identified. No suspicious microcalcifications or foci of architectural distortion are seen. There has been no significant change. This study was interpreted with CAD. IMPRESSION: No mammographic evidence of malignancy. Based on the Tyrer-Cuzick model for breast cancer risk assessment, the patient's lifetime risk of breast cancer is 7.3%. Patients with over a 20% lifetime risk of developing breast cancer may benefit from additional screening with breast MRI or ultrasound. Please note that this estimate is based on responses provided on the patient questionnaire. For more information regarding high risk consultation, please call [phone]. BI-RADS CATEGORY: BI-RADS Category: 1 Negative. Recommendation: Routine Screening Mammogram in 1 Year. Recommended Date: 1 Year. Laterality: Bilateral. MACRO: None Signed by: Rainer Cooper 08/02/2023 10:32 AM Dictation workstation: [id number] [facility] Work Phone: Radiology Study observation (narrative) [facility] Work Phone: DBT Breast - bilateralOrdere d By: Rainer Cooper on 08-02-2023 [facility] Work Phone: Bacteria identifiedon 2022 Bacteria identified Cx Nom (U) Test: Urine Culture Specimen Source: Clean Catch/Voided Specimen Type: Urine Specimen Date: 02/11/2023 3:36 PM Result Date: 02/14/2023 3:43 PM Result Status: Final result Abnormal: Yes Resulting Lab: [facility] [address] [place] [id number] CULTURE >100,000 Escherichia coli (Abnormal) SUSCEPTIBILITY Escherichia coli METHOD MICROSCAN ------- AMPICILLIN -- Susceptible CEFAZOLIN -- Susceptible CEFAZOLIN (UNCOMPLICATED UTIS ONLY) -- Susceptible CIPROFLOXACIN -- Susceptible GENTAMICIN -- Susceptible NITROFURANTOIN -- Susceptible PIPERACILLIN/TAZOBACTAM -- Susceptible TRIMETHOPRIM/SULFAMETHOXAZOL E -- Susceptible Abnormal [facility] Comment on above: Performed By: #### 6 30-4 #### KARLENE Delarosa ([id number]) [facility] ([facility]) [address] [place], [place] [id number] BONE DENSITY, DEXA 1 OR MORE SITES: AXIAL SKELETONon 07-31-2022 BONE DENSITY, DEXA 1 OR MORE SITES: AXIAL SKELETON Patient Name: KARTHIK ANDERSON STUDY: BONE DENSITY, DEXA 1 OR MORE SITES: AXIAL SKELET07/31/2022 8:44 am INDICATION: . Z78.0: Asymptomatic menopauseThe patient is a 72 year old female for a screening bone Densitometry (DEXA). COMPARISON: None. ACCESSION NUMBER(S): [id number] ORDERING CLINICIAN: LCEMENT ADAMSON TECHNIQUE: Bone Densitometry (DEXA) of the lumbar spine and left hip performed. FINDINGS: Name: KARTHIK ANDERSON Date:1950 Height:153.6 Gender:F Exam Date:07/31/2022 Weight:95 Indications:. Z78.0: Asymptomatic menopause Fractures:None Treatments:Hormone replacement therapy LEFT FEMUR -TOTAL Bone Mineral Density: 0.633 g/cm2 T-Score -2.5 Z-Score -0.8 LEFT FEMUR -NECK Bone Mineral Density: 0.534 g/cm2 T-Score -2.8 Z-Score -0.9 SPINE L1-L4 Bone Mineral Density: 0.946 g/cm2 T-Score -0.9 Z-Score 1.4 World Health Organization (WHO) criteria for post-menopausal, Women: Normal: T-score at or above -1 SD Osteopenia: T-score between -1 and -2.5 SD Osteoporosis: T-score at or below -2.5 SD 10-Year Fracture Risk: FRAX Not reported because: Some T-score for Spine Total or Hip Total or Femoral Neck at or below -2.5 IMPRESSION: According to World Health Organization criteria, classification is osteoporosis. Followup recommended in one year or sooner as clinically warranted. Electronically signed by: RAINER COOPER MD [facility] DIGITAL MAMM SCREENING W/ TO Fitch 07-31-2022 DIGITAL MAMM SCREENING W/ JOSE JUAN Patient Name: KARTHIK ANDERSON STUDY: DIGITAL MAMM SCREENING W/ JOSE JUAN; 07/31/2022 8:59 am ACCESSION NUMBER(S): [id number] ORDERING CLINICIAN: CLEMENT ADAMSON INDICATION: Screening. COMPARISON: None. FINDINGS: 2D and tomosynthesis images were reviewed at 1 mm slice thickness. There are areas of scattered fibroglandular tissue. No suspicious masses or calcifications are identified. CAD was utilized. IMPRESSION: No mammographic evidence of malignancy. BI-RADS CATEGORY: Category: 1 - Negative. Recommendation: 1 Year Screening. For any future breast imaging appointments, please call [phone]). Electronically signed by: JACOB JEAN MD [facility] Mamm - Screening Mammogram w / Tomosynthesison 07-31-2022 MG Breast Screening [facility] Work Phone: Xray Bone Density, Dexa 1 or More Siteson 07-31-2022 DXA Bone [Mass/Area] Bone density [facility] Work Phone: Office Visit (Internal Medic ine)on 06-25-2022 Follow-up visit Diagnoses/Problems Assessed At risk for diabetes mellitus (V49.89) (Z91.89) Osteopenia (733.90) (M85.80) Asymptomatic menopause (V49.81) (Z78.0) Hyperlipidemia (272.4) (E78.5) IFG (impaired fasting glucose) (790.21) (R73.01) Orders Asymptomatic menopause Xray Bone Density, Dexa 1 or More Sites; Status:Hold For - Scheduling; Requested for:25Jun2022; Perform: [facility]iology Services Imaging; Due:23Sep2022;Ordered; For:Asymptomatic menopause; Ordered By:Clement Adamson; Radiologist to Determine Optimal Study : Y What are the patient's signs and symptoms? : . Provider Impressions 1. At risk for DM/ IFG 06/11 labs were reviewed and discussed, fasting glucose 116, unchanged from 2017, on old records review, HbA1C 5.9%, goals discussed, recommended weight reduction, healthy nutrition, exercise, discussed benefits on glucose control and DM prevention 2. Hyperlipidemia discussed statin safety and pleiotropic statin effects, strongly recommended to continue treatment with Rosuvastatin Chief Complaint An interactive audio and video telecommunication system which permits real time communications between the patient (at the originating site) and provider (at the distant site) was utilized to provide this telehealth service. Verbal consent was requested and obtained from KARTHIK ANDERSON on this date, 06/25/2022 02:00 PM , for a telehealth visit. video visit for f/u History of Present IllnessThe patient presents to the office virtually with questions regarding the recent lab results, inquiring about the elevated glucose level, inquiring about the safety of Rosuvastatin and association with diabetes. Scores and Scales PHQ-9 [id number] 10:52AM PHQ-9 Depression Severity PHQ-9 #1. Little interest or pleasure in doing thingsNot at all - 0 PHQ-9 #2. Feeling down, depressed, or hopelesSSeveral days - 1 PHQ-9 #3. Trouble falling or staying asleep, or sleeping too muchSeveral days - 1 PHQ-9 #4. Feeling tired or having little energyNot at all - 0 PHQ-9 #5. Poor appetite or overeatingNot at all - 0 PHQ-9 #6. Feeling bad about yourself or you are a failure or that you have let yourself or your family downNot at all - 0 PHQ-9 #7. Trouble concentrating on things, such as reading the newspaper or watch televisionNot at all - 0 PHQ-9 #8. Moving or speaking so slowly that other people could have noticed. Or the opposite-being so fidgety or restless that you have been moving around a lot more than usualNot at all - 0 PHQ-9 #9. Thoughts that you would be better off , or of hurting yourselfNot at all - 0 PHQ-9 #10. If you checked off any problems, how difficult have these problems made it for you to do your work, take care of things at home, or get along with other people?Not difficult at all PHQ-9 Total Score (Please update problem list based on total score)2 HERNESTO-7 [id number] HERNESTO-7 Total Score6 Feeling nervous, anxious or on edgeSeveral days - 1 Not being able to stop or control worryingSeveral days - 1 Worrying too much about different thingsSeveral days - 1 Trouble relaxingOver half the days - 2 Being so restless that it's hard to sit stillNot at all - 0 Becoming easily annoyed or irritableSeveral days - 1 Feeling afraid as if something awful might happenNot at all - 0 Active Problems Problems Aftercare following left knee joint replacement surgery (V54.81,V43.65) (Z47.1,Z96.652) Aftercare following right knee joint replacement surgery (V54.81,V43.65) (Z47.1,Z96.651) Allergic rhinitis (477.9) (J30.9) At risk for diabetes mellitus (V49.89) (Z91.89) Bilateral leg and foot pain (729.5) (M79.604,M79.605,M79.671,M79 .672) BPPV (benign paroxysmal positional vertigo) (386.11) (H81.10) Cervical pain (723.1) (M54.2) Cervicalgia (723.1) (M54.2) Chronic neck pain (723.1,338.29) (M54.2,G89.29) Class 1 obesity with body mass index (BMI) of 34.0 to 34.9 in adult (278.00,V85.34) (E66.9,Z68.34) Dense breast tissue on mammogram (793.89) (R92.2) Encounter for immunization (V03.89) (Z23) Encounter for screening mammogram for breast cancer (V76.12) (Z12.31) Essential hypertension (401.9) (I10) Fracture, finger (816.00) (S62.609A) Generalized osteoarthritis of multiple sites (715.09) (M15.9) GERD (gastroesophageal reflux disease) (530.81) (K21.9) Hand pain (729.5) (M79.643) Hemorrhoids (455.6) (K64.9) HTN (hypertension) (401.9) (I10) Hyperlipidemia (272.4) (E78.5) Hypertension, uncontrolled (401.9) (I10) IFG (impaired fasting glucose) (790.21) (R73.01) Intermediate risk for coronary artery disease (V15.89) (Z91.89) Knee pain (719.46) (M25.569) Left wrist injury (959.3) (S69.92XA) Lumbago (724.2) (M54.50) Lung nodule (793.11) (R91.1) Medicare annual wellness visit, subsequent (V70.0) (Z00.00) Mild anxiety (300.00) (F41.9) Obesity (BMI 30-39.9) (278.00) (E66.9) Plantar porokeratosis, 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 Normal [employer] ALBUMIN, URINE SPOTon 2022 ALBUMIN,URINE <7.0 Normal Not Established [facility] Comment on above: Performed By: #### A LBSP #### [facility] [address] [place] [address] ALBUMIN/CREAT RATIO SEE COMMENT Normal 0.0 - 30.0 [facility] Comment on above: Result Comment: One or more analytes used in this calculation is outside of the analytical measurement range. Calculation cannot be performed. Performed By: #### A LBSP #### [facility] [address] [place] [address] CREATININE,URINE 26.3 mg/dL Normal 20.0 - 320.0 [facility] Comment on above: Performed By: #### A LBSP #### [facility] [address] [place] [address] BASIC METABOLIC PANELon - Anion gap [Moles/Vol] 13 mmol/L Normal 10 - 20 [facility] Comment on above: Performed By: #### B MP #### [facility] [address] [place] [address] Calcium [Mass/Vol] 9.8 mg/dL Normal 8.6 - 10.6 [facility] Comment on above: Performed By: #### B MP #### [facility] [address] [place] [address] Chloride [Moles/Vol] 103 mmol/L Normal 98 - 107 [facility] Comment on above: Performed By: #### B MP #### [facility] [address] [place] [address] Creatinine [Mass/Vol] 0.67 mg/dL Normal 0.50 - 1.05 [facility] Comment on above: Performed By: #### B MP #### [facility] [address] [place] [address] eGFR FEMALE >90 Normal >90 [facility] Comment on above: Result Comment: CALC ULATIONS OF ESTIMATED GFR ARE PERFORMED USING THE 2020 CKD-EPI STUDY REFIT EQUATION WITHOUT THE RACE VARIABLE FOR THE IDMS-TRACEABLE CREATININE METHODS. https://jasn.asnjournals.org/content/early/ASN.865630460 8 Performed By: #### B MP #### [facility] [address] [place] [address] Glucose [Mass/Vol] 117 mg/dL High 74 - 99 [facility] Comment on above: Performed By: #### B MP #### [facility] [address] [place] [address] HCO3 (Bld) [Moles/Vol] 28 mmol/L Normal 21 - 32 [facility] Comment on above: Performed By: #### B MP #### [facility] [address] [place] [address] Potassium [Moles/Vol] 4.5 mmol/L Normal 3.5 - 5.3 [facility] Comment on above: Performed By: #### B MP #### [facility] [address] [place] [address] Sodium [Moles/Vol] 139 mmol/L Normal 136 - 145 [facility] Comment on above: Performed By: #### B MP #### [facility] [address] [place] [address] Urea nitrogen [Mass/Vol] 11 mg/dL Normal 6 - 23 [facility] Comment on above: Performed By: #### B MP #### [facility] [address] [place] [address] CBCon 06-11-2022 Erythrocyte distribution width (RBC) [Ratio] 13.9 % Normal 11.5 - 14.5 [facility] Comment on above: Performed By: #### C BC #### [facility] [address] [place] [address] Hematocrit (Bld) [Volume fraction] 43.2 % Normal 36.0 - 46.0 [facility] Comment on above: Performed By: #### C BC #### [facility] [address] [place] [address] Hemoglobin (Bld) [Mass/Vol] 13.5 g/dL Normal 12.0 - 16.0 [facility] Comment on above: Performed By: #### C BC #### [facility] [address] [place] [address] MCHC (RBC) [Mass/Vol] 31.3 g/dL Low 32.0 - 36.0 [facility] Comment on above: Performed By: #### C BC #### [facility] [address] [place] [address] MCV (RBC) [Entitic vol] 86 fL Normal 80 - 100 [facility] Comment on above: Performed By: #### C BC #### [facility] [address] [place] [address] NUCLEATED RBC 0.0 /100 WBC Normal 0.0-0.0 [facility] Comment on above: Performed By: #### C BC #### [facility] [address] [place] [address] Platelets (Bld) [#/Vol] 273 10*3/uL Normal 150 - 450 [facility] Comment on above: Performed By: #### C BC #### [facility] [address] [place] [address] RBC 5.05 x10E12/L Normal 4.00 - 5.20 [facility] Comment on above: Performed By: #### C BC #### [facility] [address] [place] [address] WBC (Bld) [#/Vol] 6.9 10*3/uL Normal 4.4 - 11.3 [facility] Comment on above: Performed By: #### C BC #### [facility] [address] [place] [address] HEMOGLOBIN A1Con 06-11-2022 Glucose [Mass/Vol] 123 mg/dL Normal [facility] Comment on above: Performed By: #### H BA1E #### [facility] [address] [place] [address] HbA1c (Bld) [Mass fraction] 5.9 % Abnormal [facility] Comment on above: Result Comment: Diag nosis of Diabetes-Adults Non-Diabetic: < or = 5.6% Increased risk for developing diabetes: 5.7-6.4% Diagnostic of diabetes: > or = 6.5% . Monitoring of Diabetes Age (y) Therapeutic Goal (%) Adults: >18 <7.0 Pediatrics: 13-18 <7.5 7-12 <8.0 0- 6 7.5-8.5 [employer]. Diabetes Care 33(S1), Apr 2009. Performed By: #### H BA1E #### [facility] [address] [place] [address] Hemoglobin A1Con 06-11-2022 Glucose [Mass/Vol] 123 mg/dL [facility] [facility] [address] Work Phone: HbA1c (Bld) [Mass fraction] 5.9 % Abnormal [facility] [facility] [address] Work Phone: Comment on above: Diagnosis of Diabete s-Adults Non-Diabetic: < or = 5.6% Increased risk for developing diabetes: 5.7-6.4% Diagnostic of diabetes: > or = 6.5%. Monitoring of Diabetes Age (y) Therapeutic Goal (%) Adults: >18 <7.0 Pediatrics: 13-18 <7.5 7-12 <8.0 0- 6 7.5-8.5 [employer]. Diabetes Care 33(S1), Apr 2009. LIPID PANEL (CORONARY RISK 2 )on 06-11-2022 Cholesterol [Mass/Vol] 151 mg/dL Normal 0 - 199 [facility] Comment on above: Result Comment: . AGE DESIRABLE BORDERLINE HIGH HIGH 0-19 Y 0 - 169 170 - 199 >/= 200 20-24 Y 0 - 189 190 - 224 >/= 225 >24 Y 0 - 199 200 - 239 >/= 240 All ranges are based on fasting samples. Specific therapeutic targets will vary based on patient-specific cardiac risk. . Pediatric guidelines reference:Pediatrics 2011, 128(S5). Adult guidelines reference: NCEP ATPIII Guidelines, MAGED 2001, 258:2486-97 . Venipuncture immediately after or during the administration of Metamizole may lead to falsely low results. Testing should be performed immediately prior to Metamizole dosing. Performed By: #### L IPID #### [facility] [address] [place] [address] Cholesterol in HDL [Mass/Vol] 52.5 mg/dL Normal [facility] Comment on above: Result Comment: . AGE VERY LOW LOW NORMAL HIGH 0-19 Y < 35 < 40 40-45 ---- 20-24 Y ---- < 40 >45 ---- >24 Y ---- < 40 40-60 >60 . Performed By: #### L IPID #### [facility] [address] [place] [address] Cholesterol in LDL [Mass/Vol] 78 mg/dL Normal 0 - 99 [facility] Comment on above: Result Comment: . NEAR BORD AGE DESIRABLE OPTIMAL HIGH HIGH VERY HIGH 0-19 Y 0 - 109 --- 110-129 >/= 130 ---- 20-24 Y 0 - 119 --- 120-159 >/= 160 ---- >24 Y 0 - 99 100-129 130-159 160-189 >/=190 . Performed By: #### L IPID #### [facility] [address] [place] [address] Cholesterol in VLDL [Mass/Vol] 20 mg/dL Normal 0 - 40 [facility] Comment on above: Performed By: #### L IPID #### [facility] [address] [place] [address] Cholesterol.total/ Cholesterol in HDL [Mass ratio] 2.9 {ratio} Normal [facility] Comment on above: Result Comment: REF VALUES DESIRABLE < 3.4 HIGH RISK > 5.0 Performed By: #### L IPID #### [facility] [address] [place] [address] Triglyceride [Mass/Vol] 102 mg/dL Normal 0 - 149 [facility] Comment on above: Result Comment: . AGE DESIRABLE BORDERLINE HIGH HIGH VERY HIGH 0 D-90 D 19 - 174 ---- ---- ---- 91 D- 9 Y 0 - 74 75 - 99 >/= 100 ---- 10-19 Y 0 - 89 90 - 129 >/= 130 ---- 20-24 Y 0 - 114 115 - 149 >/= 150 ---- >24 Y 0 - 149 150 - 199 200- 499 >/= 500 . Venipuncture immediately after or during the administration of Metamizole may lead to falsely low results. Testing should be performed immediately prior to Metamizole dosing. Performed By: #### L IPID #### [facility] [address] [place] [address] Laboratory - Chemistry and C hemistry - challengeon 06-11-2022 Albumin Ql (U) <7.0 See Below [facility] [address] Work Phone: Comment on above: Reference Range: Not Established Albumin/Creatinine DL <= 20 mg/L (U) [Mass ratio] SEE COMMENT 0.0 - 30.[address] [facility] [address] Work Phone: Comment on above: One or more analytes used in this calculation is outside of the analytical measurement range.Calculation cannot be performed. Anion gap [Moles/Vol] 13 mmol/L 10 - [address] [facility] [address] Work Phone: [phone] Calcium [Mass/Vol] 9.8 mg/dL 8.6 - 10.[address] [facility] [address] Work Phone: [phone] Chloride [Moles/Vol] 103 mmol/L 98 - [address] [facility] [address] Work Phone: [phone] CO2 [Moles/Vol] 28 mmol/L 21 - [address] [facility] [address] Work Phone: [phone] Creatinine (U) [Mass/Vol] 26.3 mg/dL See Below [address] [facility] [address] Work Phone: [phone] Comment on above: Reference Range: 20. 0 - 320.0 Creatinine [Mass/Vol] 0.67 mg/dL See Below [address] [facility] [address] Work Phone: [phone] Comment on above: Reference Range: 0.5 0 - 1.05 Glucose [Mass/Vol] 117 mg/dL above high threshold 74 - [address] [facility] [address] Work Phone: [phone] Potassium [Moles/Vol] 4.5 mmol/L 3.5 - 5.[address] [facility] [address] Work Phone: [phone] Sodium [Moles/Vol] 139 mmol/L 136 - [address] [facility] [address] Work Phone: [phone] Urea nitrogen [Mass/Vol] 11 mg/dL 6 - [address] [facility] [address] Work Phone: Laboratory - Hematology and Cell countson 06-11-2022 Erythrocyte distribution width (RBC) [Ratio] 13.9 % See Below [address] [facility] [address] Work Phone: Comment on above: Reference Range: 11. 5 - 14.5 Hematocrit (Bld) [Volume fraction] 43.2 % See Below [address] [facility] [address] Work Phone: [phone] Comment on above: Reference Range: 36. 0 - 46.0 Hemoglobin (Bld) [Mass/Vol] 13.5 g/dL See Below [facility] [facility] [address] Work Phone: [phone] Comment on above: Reference Range: 12. 0 - 16.0 MCHC (RBC) [Mass/Vol] 31.3 g/dL below low threshold See Below [address] [facility] [address] Work Phone: [phone] Comment on above: Reference Range: 32. 0 - 36.0 MCV (RBC) [Entitic vol] 86 fL 80 - [address] [facility] [address] Work Phone: [phone] Platelets (Bld) [#/Vol] 273 10*3/uL 150 - [address] [facility] [address] Work Phone: [phone] RBC (Bld) [#/Vol] 5.05 {x10E12/L} See Below [facility] [address] [facility] [address] Work Phone: [phone] Comment on above: Reference Range: 4.0 0 - 5.20 WBC (Bld) [#/Vol] 6.9 10*3/uL 4.4 - 11.[address] [facility] [address] Work Phone: [phone] Lipid Panelon 06-11-2022 Cholesterol [Mass/Vol] 151 mg/dL 0 - [address] [facility] [address] Work Phone: [phone] Comment on above: . AGE DESIRABLE BORD SAM HIGH HIGH 0-19 Y 0 - 169 170 - 199 >/= 200 20-24 Y 0 - 189 190 - 224 >/= 225 >24 Y 0 - 199 200 - 239 >/= 240 All ranges are based on fasting samples. Specific therapeutic targets will vary based on patient-specific cardiac risk.. Pediatric guidelines reference:Pediatrics 2011, 128(S5). Adult guidelines reference: NCEP ATPIII Guidelines, MAGED 2001, 258:2486-97. Venipuncture immediately after or during the administration of Metamizole may lead to falsely low results. Testing should be performed immediately prior to Metamizole dosing. Cholesterol in HDL [Mass/Vol] 52.5 mg/dL [facility] [facility] [address] Work Phone: Comment on above: . AGE VERY LOW LOW N ORMAL HIGH 0-19 Y < 35 < 40 40-45 ---- 20- 24 Y ---- < 40 >45 ---- >24 Y ---- < 40 40-60 >60. Cholesterol in LDL [Mass/Vol] 78 mg/dL 0 - [address] [facility] [address] Work Phone: Comment on above: . NEAR BORD AGE ZAIDA RABLE OPTIMAL HIGH HIGH VERY HIGH 0-19 Y 0 - 109 --- 110-129 >/= 130 ---- 20-24 Y 0 - 119 --- 120-159 >/= 160 ---- >24 Y 0 - 99 100-129 130-159 160-189 >/=190. Cholesterol.total/ Cholesterol in HDL [Mass ratio] 2.9 {ratio} [address] [facility] [address] Work Phone: Comment on above: REF VALUESDESIRABLE < 3.4HIGH RISK > 5.0 Triglyceride [Mass/Vol] 102 mg/dL 0 - [address] [facility] [address] Work Phone: Comment on above: . AGE DESIRABLE BORD SAM HIGH HIGH VERY HIGH 0 D-90 D 19 - 174 ---- ---- ----91 D- 9 Y 0 - 74 75 - 99 >/= 100 ---- 10-19 Y 0 - 89 90 - 129 >/= 130 ---- 20-24 Y 0 - 114 115 - 149 >/= 150 ---- >24 Y 0 - 149 150 - 199 200- 499 >/= 500. Venipuncture immediately after or during the administration of Metamizole may lead to falsely low results. Testing should be performed immediately prior to Metamizole dosing. Lipid Panel 20 mg/dL 0 - [address] [facility] [address] Work Phone: Medicare Annual Wellness Vis iton 06-11-2022 Medicare Annual Wellness Visit *Chief Complaint patient here for medicare wellness visit History of Present Illness The patient is being seen for the subsequent annual wellness visit. Past Medical, Surgical and Family History: reviewed and updated in chart. Medications and Supplements: Review of all medications by a prescribing practitioner or clinical pharmacist (such as prescriptions, OTCs, herbal therapies and supplements) documented in the medical record. No, the patient is not using opioids. Patient Self Assessment of Health Status: good. Tobacco use: Non-User Alcohol use: Non-User Illicit drug use: Non-User Current diet: well balanced diet. Exercise Frequency: regularly. Depression/Suicide Screening: . During the past 2 weeks, the patient has not felt down, depressed or hopeless. During the past 2 weeks, the patient has not felt little interest or pleasure in doing things. Hearing Impairment: none. Cognitive Impairment: No cognitive impairment observed. Bathing: performs independently. Dressing: performs independently. Walking: performs independently. Managing Finances: performs independently. Shopping: performs independently. Managing Medications: performs independently. Housework / Basic Home Maintenance: performs independently. Falls Risk Screening:. KARTHIK has not fallen in the last 6 months. Home safety risk factors: none. Advance directives:. Advanced Care Planning discussed and documented advance care plan or surrogate decision maker documented in the medical record. Review of Systems General: negative Skin: negative Head: negative Eyes: negative ENT: negative Neck: negative Chest/Respiratory: negative Cardiac:negative Vascular: negative Breasts: negative GI: negative Urinary: negative Genitalia: negative Endocrine: negative Musculoskeletal: negative Neurologic: negative Psychiatric: negative 'Scores and Scales' Mental Status Exam Date/Time: 08/28 Place: 08/28 Registration: 06/26 Serial Sevens: 08/28 Naming 2 Objects: 2 Repeating a Sentence: 04/26 Write a Sentence: 04/26 3-Stage Verbal Command: 06/26 Written Comment: 04/26 Copy a Design: 04/26 Recall: 06/26. TOTAL SCORE: PHQ-9 [id number] 10:52AM PHQ-9 Depression Severity PHQ-9 #1. Little interest or pleasure in doing thingsNot at all - 0 PHQ-9 #2. Feeling down, depressed, or hopelesSSeveral days - 1 PHQ-9 #3. Trouble falling or staying asleep, or sleeping too muchSeveral days - 1 PHQ-9 #4. Feeling tired or having little energyNot at all - 0 PHQ-9 #5. Poor appetite or overeatingNot at all - 0 PHQ-9 #6. Feeling bad about yourself or you are a failure or that you have let yourself or your family downNot at all - 0 PHQ-9 #7. Trouble concentrating on things, such as reading the newspaper or watch televisionNot at all - 0 PHQ-9 #8. Moving or speaking so slowly that other people could have noticed. Or the opposite-being so fidgety or restless that you have been moving around a lot more than usualNot at all - 0 PHQ-9 #9. Thoughts that you would be better off , or of hurting yourselfNot at all - 0 PHQ-9 #10. If you checked off any problems, how difficult have these problems made it for you to do your work, take care of things at home, or get along with other people?Not difficult at all PHQ-9 Total Score (Please update problem list based on total score)2 HERNESTO-7 [id number] HERNESTO-7 Total Score6 Feeling nervous, anxious or on edgeSeveral days - 1 Not being able to stop or control worryingSeveral days - 1 Worrying too much about different thingsSeveral days - 1 Trouble relaxingOver half the days - 2 Being so restless that it's hard to sit stillNot at all - 0 Becoming easily annoyed or irritableSeveral days - 1 Feeling afraid as if something awful might happenNot at all - 0 *Active Problems Aftercare following left knee joint replacement surgery (V54.81,V43.65) (Z47.1,Z96.652) Aftercare following right knee joint replacement surgery (V54.81,V43.65) (Z47.1,Z96.651) Allergic rhinitis (477.9) (J30.9) At risk for diabetes mellitus (V49.89) (Z91.89) Bilateral leg and foot pain (729.5) (M79.604,M79.605,M79.671,M79 .672) BPPV (benign paroxysmal positional vertigo) (386.11) (H81.10) Cervical pain (723.1) (M54.2) Cervicalgia (723.1) (M54.2) Chronic neck pain (723.1,338.29) (M54.2,G89.29) Class 1 obesity with body mass index (BMI) of 34.0 to 34.9 in adult (278.00,V85.34) (E66.9,Z68.34) Dense breast tissue on mammogram (793.89) (R92.2) Encounter for immunization (V03.89) (Z23) Encounter for screening mammogram for breast cancer (V76.12) (Z12.31) Essential hypertension (401.9) (I10) Fracture, finger (816.00) (S62.609A) Generalized osteoarthritis of multiple sites (715.09) (M15.9) GERD (gastroesophageal reflux disease) (530.81) (K21.9) Hand pain (729.5) (M79.643) Hemorrhoids (455.6) (K64.9) Hyperlipidemia (272.4) (E78.5) Hypertension, uncontrolled (401.9) (I10) IFG (impaired fasting glucose (more content not included)... Normal [address] [email or web address] No Panel Informationon 06-11 >[address] [facility] [address] Work Phone: Comment on above: CALCULATIONS OF ELSIE MATED GFR ARE PERFORMED USING THE 2020 CKD-EPI STUDY REFIT EQUATION WITHOUT THE RACE VARIABLE FOR THE IDMS-TRACEABLE CREATININE METHODS.https://jasn.asnjournals.org/content/early/ASN.2 525633354 0.0 {/100_WBC} 0.0-0.0 [facility] [address] [facility] [address] Work Phone: TSHon 06-11-2022 TSH Qn 2.59 m[IU]/L Normal 0.44 - 3.98 [facility] Comment on above: Result Comment: TSH testing is performed using different testing methodology at [facility] than at other [facility]. Direct result comparisons should only be made within the same method. Performed By: #### T SH2 #### [facility] [address] [place] [address] TSH - Thyroid Stimulating Ho rmone, Serumon 06-11-2022 TSH Qn 2.59 m[IU]/L See Below [address] [facility] [address] Work Phone: Comment on above: Reference Range: 0.4 4 - 3.98 TSH testing is performed using different testing methodology at [facility] than at other [facility]. Direct result comparisons should only be made within the same method. Tobacco Screening.on 023 Fall risk assessment a) No falls within the last year [address] [facility] [address] Work Phone: Tobacco use status [facility] b) No [address] [facility] [address] Work Phone: Office Visit (Internal Medic ine)on 04-08-2022 Follow-up visit Diagnoses/Problems Assessed Generalized osteoarthritis of multiple sites (715.09) (M15.9) Orders Generalized osteoarthritis of multiple sites Start: DULoxetine HCl - 30 MG Oral Capsule Delayed Release Particles; 1 capsule daily for 3 weeks then 2 capsules daily Rx By: Clement Adamson; Dispense: 0 Days ; #:180 Capsule; Refill: 1;For: Generalized osteoarthritis of multiple sites; SHAYNA = N; Verified Transmission to [facility]; Last Updated By: Lindsey Albright; 04/08/2022 1:44:20 PM Provider Impressions 1. OA, shoulder, knee, left Recommended Duloxetine 30 mg daily trial, for 3 weeks, may increase in 3 weeks to 60 mg daily, Tylenol 650 mg tid PRN, to continue PT/Aquatic therapy, weight control. Risks and benefits of the prescribing medication were discussed with the patient. Close f/u Chief Complaint An interactive audio and video telecommunication system which permits real time communications between the patient (at the originating site) and provider (at the distant site) was utilized to provide this telehealth service. Verbal consent was requested and obtained from KARTHIK ANDERSON on this date, 04/08/2022 01:20 PM , for a telehealth visit. video visit pain issues History of Present IllnessThe patient presents to the office virtually with C/O chronic pain in left knee and shoulder, Celebrex was prescribed by Orthopedic surgeon, tried OTC Ibuprofen, both were found to be effective, concerned about the side effects, inquiring about treatment options. PT and aquatic therapy in progress, both improved symptoms in addition to medications. Scores and Scales PHQ-9 [id number] 10:52AM PHQ-9 Depression Severity PHQ-9 #1. Little interest or pleasure in doing thingsNot at all - 0 PHQ-9 #2. Feeling down, depressed, or hopelesSSeveral days - 1 PHQ-9 #3. Trouble falling or staying asleep, or sleeping too muchSeveral days - 1 PHQ-9 #4. Feeling tired or having little energyNot at all - 0 PHQ-9 #5. Poor appetite or overeatingNot at all - 0 PHQ-9 #6. Feeling bad about yourself or you are a failure or that you have let yourself or your family downNot at all - 0 PHQ-9 #7. Trouble concentrating on things, such as reading the newspaper or watch televisionNot at all - 0 PHQ-9 #8. Moving or speaking so slowly that other people could have noticed. Or the opposite-being so fidgety or restless that you have been moving around a lot more than usualNot at all - 0 PHQ-9 #9. Thoughts that you would be better off , or of hurting yourselfNot at all - 0 PHQ-9 #10. If you checked off any problems, how difficult have these problems made it for you to do your work, take care of things at home, or get along with other people?Not difficult at all PHQ-9 Total Score (Please update problem list based on total score)2 HERNESTO-7 [id number] HERNESTO-7 Total Score6 Feeling nervous, anxious or on edgeSeveral days - 1 Not being able to stop or control worryingSeveral days - 1 Worrying too much about different thingsSeveral days - 1 Trouble relaxingOver half the days - 2 Being so restless that it's hard to sit stillNot at all - 0 Becoming easily annoyed or irritableSeveral days - 1 Feeling afraid as if something awful might happenNot at all - 0 Active Problems Problems Aftercare following left knee joint replacement surgery (V54.81,V43.65) (Z47.1,Z96.652) Aftercare following right knee joint replacement surgery (V54.81,V43.65) (Z47.1,Z96.651) Allergic rhinitis (477.9) (J30.9) At risk for diabetes mellitus (V49.89) (Z91.89) Bilateral leg and foot pain (729.5) (M79.604,M79.605,M79.671,M79 .672) BPPV (benign paroxysmal positional vertigo) (386.11) (H81.10) Cervical pain (723.1) (M54.2) Cervicalgia (723.1) (M54.2) Chronic neck pain (723.1,338.29) (M54.2,G89.29) Class 1 obesity with body mass index (BMI) of 34.0 to 34.9 in adult (278.00,V85.34) (E66.9,Z68.34) Dense breast tissue on mammogram (793.89) (R92.2) Encounter for immunization (V03.89) (Z23) Encounter for screening mammogram for breast cancer (V76.12) (Z12.31) Essential hypertension (401.9) (I10) Fracture, finger (816.00) (S62.609A) GERD (gastroesophageal reflux disease) (530.81) (K21.9) Hand pain (729.5) (M79.643) Hemorrhoids (455.6) (K64.9) Hyperlipidemia (272.4) (E78.5) Hypertension, uncontrolled (401.9) (I10) IFG (impaired fasting glucose) (790.21) (R73.01) Intermediate risk for coronary artery disease (V15.89) (Z91.89) Knee pain (719.46) (M25.569) Left wrist injury (959.3) (S69.92XA) Lumbago (724.2) (M54.50) Lung nodule (793.11) (R91.1) Mild anxiety (300.00) (F41.9) Obesity (BMI 30-39.9) (278.00) (E66.9) Plantar porokeratosis, 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 Normal Touchworks Office Visit (Internal Medic ine)on 09-16-2021 Follow-up visit Diagnoses/Problems Assessed BPPV (benign paroxysmal positional vertigo) (386.11) (H81.10) Orders BPPV (benign paroxysmal positional vertigo) Start: Meclizine HCl - 12.5 MG Oral Tablet; Take 1/2- 1 tablet by mouth three times a day as needed Rx By: Clement Adamson; Dispense: 30 Days ; #:30 Tablet; Refill: 0;For: BPPV (benign paroxysmal positional vertigo); SHAYNA = N; Sent To: [facility] [employer] [employer] [address]; Last Updated By: System, Blueflyer; 09/16/2021 8:59:48 AM Physical Therapy - Vestibular Referral Evaluation and Treatment Evaluate AND Treat Status: Hold For - Scheduling Requested for: [id number] Ordered;For: BPPV (benign paroxysmal positional vertigo); Ordered By: Clement Adamson Performed: Due: [id number] Provider Impressions 1. BPPV PT- vestibular, Meclizine 12.5 mg tid PRN Chief Complaint An interactive audio and video telecommunication system which permits real time communications between the patient (at the originating site) and provider (at the distant site) was utilized to provide this telehealth service. Verbal consent was requested and obtained from KARTHIK ANDERSON on this date, 09/16/2021 08:40 AM , for a telehealth visit. video visit for therapy referral History of Present IllnessThe patient presents to the office virtually, C/O intermittent dizziness, diagnosed with BPPV, inquiring about the referral for vestibular conditioning and PT. Scores and Scales PHQ-9 [id number] 10:52AM PHQ-9 Depression Severity PHQ-9 #1. Little interest or pleasure in doing thingsNot at all - 0 PHQ-9 #2. Feeling down, depressed, or hopelesSSeveral days - 1 PHQ-9 #3. Trouble falling or staying asleep, or sleeping too muchSeveral days - 1 PHQ-9 #4. Feeling tired or having little energyNot at all - 0 PHQ-9 #5. Poor appetite or overeatingNot at all - 0 PHQ-9 #6. Feeling bad about yourself or you are a failure or that you have let yourself or your family downNot at all - 0 PHQ-9 #7. Trouble concentrating on things, such as reading the newspaper or watch televisionNot at all - 0 PHQ-9 #8. Moving or speaking so slowly that other people could have noticed. Or the opposite-being so fidgety or restless that you have been moving around a lot more than usualNot at all - 0 PHQ-9 #9. Thoughts that you would be better off , or of hurting yourselfNot at all - 0 PHQ-9 #10. If you checked off any problems, how difficult have these problems made it for you to do your work, take care of things at home, or get along with other people?Not difficult at all PHQ-9 Total Score (Please update problem list based on total score)2 HERNESTO-7 [id number] HERNESTO-7 Total Score6 Feeling nervous, anxious or on edgeSeveral days - 1 Not being able to stop or control worryingSeveral days - 1 Worrying too much about different thingsSeveral days - 1 Trouble relaxingOver half the days - 2 Being so restless that it's hard to sit stillNot at all - 0 Becoming easily annoyed or irritableSeveral days - 1 Feeling afraid as if something awful might happenNot at all - 0 Active Problems Problems Aftercare following left knee joint replacement surgery (V54.81,V43.65) (Z47.1,Z96.652) Aftercare following right knee joint replacement surgery (V54.81,V43.65) (Z47.1,Z96.651) Allergic rhinitis (477.9) (J30.9) At risk for diabetes mellitus (V49.89) (Z91.89) Bilateral leg and foot pain (729.5) (M79.604,M79.605,M79.671,M79 .672) Cervical pain (723.1) (M54.2) Cervicalgia (723.1) (M54.2) Chronic neck pain (723.1,338.29) (M54.2,G89.29) Class 1 obesity with body mass index (BMI) of 34.0 to 34.9 in adult (278.00,V85.34) (E66.9,Z68.34) Dense breast tissue on mammogram (793.89) (R92.2) Encounter for immunization (V03.89) (Z23) Encounter for screening mammogram for breast cancer (V76.12) (Z12.31) Essential hypertension (401.9) (I10) Fracture, finger (816.00) (S62.609A) GERD (gastroesophageal reflux disease) (530.81) (K21.9) Hand pain (729.5) (M79.643) Hemorrhoids (455.6) (K64.9) Hyperlipidemia (272.4) (E78.5) Hypertension, uncontrolled (401.9) (I10) IFG (impaired fasting glucose) (790.21) (R73.01) Intermediate risk for coronary artery disease (V15.89) (Z91.89) Knee pain (719.46) (M25.569) Left wrist injury (959.3) (S69.92XA) Lumbago (724.2) (M54.50) Lung nodule (793.11) (R91.1) Mild anxiety (300.00) (F41.9) Obesity (BMI 30-39.9) (278.00) (E66.9) Plantar porokeratosis, 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 Normal Dine perfect Office Visiton 08-25-2021 Follow-up visit Diagnoses/Problems Bilateral leg and foot pain (729.5) (M79.604,M79.605,M79.671,M79 .672) 1 1 Amended By: Lucie Cuenca; Aug 25 2021 12:30 PM ESTPatient Discussion/Summary Patient examined and evaluated. Patient examined and evaluated. DIscussed signs and symptoms of arthritis. Recommend stiff , supportive shoe gear. Do not walk barefoot, even in the house. 1 Recommend gel toe caps Recommend gel toe spacers F/u if no improvement noted. 1 1 Patient 1 in agreement to 1 plan. 1 All questions answered. 1 Amended By: Lucie Cuenca; Aug 25 2021 12:30 PM ESTHistory of Present Illness This 71-year-old female presents clinic today for foot pain. Patient states right 4 and 5th toe 1 tender when walking. 1 Denies trauma . NO 1 other pedal complaints.1 1 Amended By: Lucie Cuenca; Aug 25 2021 12:29 PM ESTReview of Systems Constitutional: negative. Cardiovascular: negative. Respiratory: negative. Gastrointestinal: negative. Genitourinary: negative. Musculoskeletal: foot pain, but negative. Integumentary: negative. Neurological: negative. Psychiatric: negative. Active Problems Aftercare following left knee joint replacement surgery (V54.81,V43.65) (Z47.1,Z96.652) Aftercare following right knee joint replacement surgery (V54.81,V43.65) (Z47.1,Z96.651) Allergic rhinitis (477.9) (J30.9) At risk for diabetes mellitus (V49.89) (Z91.89) Cervical pain (723.1) (M54.2) Cervicalgia (723.1) (M54.2) Chronic neck pain (723.1,338.29) (M54.2,G89.29) Class 1 obesity with body mass index (BMI) of 34.0 to 34.9 in adult (278.00,V85.34) (E66.9,Z68.34) Dense breast tissue on mammogram (793.89) (R92.2) Encounter for immunization (V03.89) (Z23) Encounter for screening mammogram for breast cancer (V76.12) (Z12.31) Essential hypertension (401.9) (I10) Fracture, finger (816.00) (S62.609A) GERD (gastroesophageal reflux disease) (530.81) (K21.9) Hand pain (729.5) (M79.643) Hemorrhoids (455.6) (K64.9) Hyperlipidemia (272.4) (E78.5) Hypertension, uncontrolled (401.9) (I10) IFG (impaired fasting glucose) (790.21) (R73.01) Intermediate risk for coronary artery disease (V15.89) (Z91.89) Knee pain (719.46) (M25.569) Left wrist injury (959.3) (S69.92XA) Lumbago (724.2) (M54.50) Lung nodule (793.11) (R91.1) Mild anxiety (300.00) (F41.9) Obesity (BMI 30-39.9) (278.00) (E66.9) Preoperative examination (V72.84) (Z01.818) Primary osteoarthritis of both knees (715.16) (M17.0) Skin lesion of breast (709.8) (L98.8) UTI (urinary tract infection), bacterial (599.0,041.9) (N39.0,A49.9) Vitamin D deficiency (268.9) (E55.9) Past Medical History History of acute sinusitis (V12.69) (Z87.09) Resolved Date: 15 May 2019 Surgical History History of Gallbladder Surgery History of Hysterectomy History of Tubal Ligation Social History Never a smoker No alcohol use Allergies No Known Drug Allergies Recorded By: Tata Nayak; 06/16/2016 8:38:12 AM Current Meds Medication NameInstruction Aspir-Low 81 MG TBEC Azelastine HCl - 0.1 % Nasal SolutionUSE 2 SPRAYS IN EACH NOSTRIL TWICE DAILY Azelastine HCl - 137 MCG/SPRAY Nasal SolutionINSERT 2 SQUIRTS IN EACH NOSTRIL TWICE DAILY hydroCHLOROthiazide 12.5 MG Oral CapsuleTAKE 1 CAPSULE Daily Multi-Vitamin Oral Tablet Nadolol 20 MG Oral TabletTake 1 tablet daily Omeprazole 10 MG Oral Capsule Delayed ReleaseTAKE 1 CAPSULE Daily Preparation H 0.25-14-74.9 % Rectal OintmentAPPLY TOPICALLY TWICE DAILY NEEDED Preparation H 0.25-88.44 % Rectal Suppositoryinsert 1 RS every 12 hours PRN Proctocort 30 MG Rectal SuppositoryINSERT 1 SUPPOSITORY RECTALLY 2 TIMES DAILY. Rosuvastatin Calcium 20 MG Oral TabletTAKE 1 TABLET AT BEDTIME Sulfamethoxazole-Trimethopri m 800-160 MG Oral TabletTAKE 1 TABLET BY MOUTH EVERY 12 HOURS FOR 3 DAYS Vitamin B-12 500 MCG Oral Tablet Vitamin D3 50 MCG (2000 UT) Oral TabletVitamin D3 2000 IU take one daily Vitals Vital Signs Recorded: 25Aug2021 12:26PM [id number] F Tobacco Usec) Screening not indicated Fall Screeningc) Not medically indicated Physical Exam Gen: The patient is alert and oriented 3, is in no acute distress Psychiatric: Mood and affect are appropriate. Vascular exam: Dorsalis pedis and Posterior Tibial pulses palpable 2/4 bilateral. Capillary refill time less than 3 seconds b/l. Hair growth noted to digits. No edema noted. Skin temp warm to warm from proximal to distal b/l. No varicosities noted. Neurologic exam: Gross sensation present b/l. No neuro deficits noted b/l Musculoskeletal exam: Muscle strength 5/5 for all major muscle groups tested in the lower extremity b/l. No gross deformities noted b/l. Pain to r 4 and 5th digit. No edema, erythema or ecchymosis noted. 1 Dermatologic exam: Nails 1-5 b/l are discolored Webspaces 1-4 b/l are clean, dry and intact. 1 1 Amended By: Lucie Cuenca; Aug 25 2021 12:30 PM ESTSignatures Electronically signed by : Lucie Edwards (more content not included)... Normal Touchworks Tobacco Screening.on 022 Fall risk assessment c) Not medically indicated [facility] 2500 Work Phone: Tobacco use status [facility] c) Screening not indicated [facility] [place] [facility] [address] Work Phone: Fall risk assessment c) Not medically indicated [facility] [place] [facility] 2500 Work Phone: Tobacco use status [facility] c) Screening not indicated [facility] [place] [facility] 2500 Work Phone: Mamm - Screening Mammogram w / [employer]os[employer] 07-21-2021 MG Breast Screening Normal [facility] [address] [facility] Work Phone: Laboratory - Chemistry and C hemistry - challengeon 06-11-2021 Albumin Ql (U) <7.0 See Below [facility] Work Phone: Comment on above: Reference Range: Not Established Albumin/Creatinine DL <= 20 mg/L (U) [Mass ratio] SEE COMMENT 0.0 - 30.[address] [facility] Work Phone: Comment on above: One or more analytes used in this calculation is outside of the analytical measurement range.Calculation cannot be performed. Anion gap [Moles/Vol] 14 mmol/L 10 - [address] [facility] Work Phone: [phone] Calcium [Mass/Vol] 9.8 mg/dL 8.6 - 10.[address] [facility] [facility] Work Phone: [phone] Chloride [Moles/Vol] 105 mmol/L 98 - [address] [facility] Work Phone: [phone] CO2 [Moles/Vol] 29 mmol/L 21 - [address] [facility] Work Phone: [phone] Creatinine (U) [Mass/Vol] 47.2 mg/dL See Below [facility] [address] [facility] Work Phone: Comment on above: Reference Range: 20. 0 - 320.0 Creatinine [Mass/Vol] 0.64 mg/dL See Below [facility] [address] [facility] Work Phone: Comment on above: Reference Range: 0.5 0 - 1.05 Glucose [Mass/Vol] 93 mg/dL 74 - [address] [facility] Work Phone: Potassium [Moles/Vol] 5.0 mmol/L 3.5 - 5.[address] [facility] Work Phone: Sodium [Moles/Vol] 143 mmol/L 136 - [address] [facility] Work Phone: Urea nitrogen [Mass/Vol] 14 mg/dL 6 - [address] [facility] Work Phone: Lipid Panelon 06-11-2021 Cholesterol [Mass/Vol] 160 mg/dL 0 - [address] [facility] Work Phone: Comment on above: . AGE DESIRABLE BORD SAM HIGH HIGH 0-19 Y 0 - 169 170 - 199 >/= 200 20-24 Y 0 - 189 190 - 224 >/= 225 >24 Y 0 - 199 200 - 239 >/= 240 All ranges are based on fasting samples. Specific therapeutic targets will vary based on patient-specific cardiac risk.. Pediatric guidelines reference:Pediatrics 2011, 128(S5). Adult guidelines reference: NCEP ATPIII Guidelines, MAGED 2001, 258:2486-97. Venipuncture immediately after or during the administration of Metamizole may lead to falsely low results. Testing should be performed immediately prior to Metamizole dosing. Cholesterol in HDL [Mass/Vol] 53.7 mg/dL [facility] [address] [facility] Work Phone: Comment on above: . AGE VERY LOW LOW N ORMAL HIGH 0-19 Y < 35 < 40 40-45 ---- 20- 24 Y ---- < 40 >45 ---- >24 Y ---- < 40 40-60 >60. Cholesterol in LDL [Mass/Vol] 83 mg/dL 0 - [address] [facility] Work Phone: Comment on above: . NEAR BORD AGE ZAIDA RABLE OPTIMAL HIGH HIGH VERY HIGH 0-19 Y 0 - 109 --- 110-129 >/= 130 ---- 20-24 Y 0 - 119 --- 120-159 >/= 160 ---- >24 Y 0 - 99 100-129 130-159 160-189 >/=190. Cholesterol.total/ Cholesterol in HDL [Mass ratio] 3.0 {ratio} [facility] [address] [facility] Work Phone: Comment on above: REF VALUESDESIRABLE < 3.4HIGH RISK > 5.0 Triglyceride [Mass/Vol] 116 mg/dL 0 - [address] [facility] Work Phone: Comment on above: . AGE DESIRABLE BORD SAM HIGH HIGH VERY HIGH 0 D-90 D 19 - 174 ---- ---- ----91 D- 9 Y 0 - 74 75 - 99 >/= 100 ---- 10-19 Y 0 - 89 90 - 129 >/= 130 ---- 20-24 Y 0 - 114 115 - 149 >/= 150 ---- >24 Y 0 - 149 150 - 199 200- 499 >/= 500. Venipuncture immediately after or during the administration of Metamizole may lead to falsely low results. Testing should be performed immediately prior to Metamizole dosing. Lipid Panel 23 mg/dL 0 - [address] [facility] Work Phone: No Panel Informationon 06-11 >90 >[address] [facility] [address] [facility] Work Phone: Comment on above: CALCULATIONS OF ELSIE MATED GFR ARE PERFORMED USING THE 2020 CKD-EPI STUDY REFIT EQUATION WITHOUT THE RACE VARIABLE FOR THE IDMS-TRACEABLE CREATININE METHODS.https://jasn.asnjournals.org/content//ASN.2 191271814 Tobacco Screening.on 022 Fall risk assessment a) No falls within the last year [facility] [address] [facility] Work Phone: Tobacco use status [facility] b) No [facility] [address] [facility] Work Phone: Tobacco Screening.on 021 Fall risk assessment a) No falls within the last year [facility] [address] [facility] Work Phone: Tobacco use status [facility] b) No [facility] [facility] Work Phone: No Panel Informationon 10-01 Not at all - 0 [facility] [place] Work Phone: Several days - 1 [facility] [address] [place] Work Phone: [phone] Minimal Depression [facility] [place] Work Phone: [phone] Not difficult at all [facility] [place] Work Phone: [phone] Negative [facility] [address] [place] Work Phone: [phone] Not at all - 0 [facility] [address] [place] Work Phone: [phone] Several days - 1 [facility] [address] [place] Work Phone: [phone] Over half the days - 2 [facility] [address] [place] Work Phone: [phone] Mild Anxiety [facility] [address] [place] Work Phone: [phone] Not difficult at all [facility] [place] Work Phone: [phone] Comment on above: How difficult have t hose problems made it for you to do your work, take care of things at home, or get along with other people? 6 1 [facility] [place] Work Phone: [phone] Comment on above: Over the last two we eks, how often have you been bothered by the following problems? Feeling nervous, anxious, or on edge: Several days - 1Not being able to stop or control worrying: Several days - 1Worrying too much about different things: Several days - 1Trouble relaxing: Over half the days - 2Being so restless that it's hard to sit still: Not at all - 0Becoming easily annoyed or irritable: Several days - 1Feeling afraid as if something awful might happen: Not at all - 0 Laboratory - Chemistry and C hemistry - challengeon 09-18-2020 Cholesterol [Mass/Vol] 212 mg/dL [facility] [address] [place] Work Phone: No Panel Informationon 09-18 N/A [facility] [address] [place] Work Phone: Never [facility] [address] [place] Work Phone: False [facility] [address] [place] Work Phone: True [facility] [address] [place] Work Phone: 137 mg/dL [facility] [address] [place] Work Phone: 51.0 mg/dL [facility] [address] [place] Work Phone: 70 {years} [facility] [address] [place] Work Phone: 14.63 % [facility] [address] [place] Work Phone: 11.92 % [facility] [address] [place] Work Phone: 12.19 % [facility] [address] [place] Work Phone: Intermediate Risk [facility] [address] [place] Work Phone: 7.73 % [facility] [address] [place] Work Phone: 16.26 % [facility] [address] [place] Work Phone: Comment on above: Age: 70Sex: FemaleRa ce: WhiteSystolic Blood Pressure: 137Diastolic Blood Pressure: 87Total Cholesterol: 212HDL Cholesterol: 51.0LDL Cholesterol: 137Diabetes: NoSmoker: NeverHow Long Ago Patient Quit Smoking: N/AOn Hypertension Treatment: YesOn a Statin: YesOn Aspirin Therapy: NoRefine Current Risk Estimate Using Data from a Previous Visit: No Hemoglobin A1Con 09-17-2020 Glucose [Mass/Vol] 120 mg/dL [facility] [place] Work Phone: HbA1c (Bld) [Mass fraction] 5.8 % [facility] [employer] [address] [place] [address] Work Phone: Comment on above: Diagnosis of Diabete s-Adults Non-Diabetic: < or = 5.6% Increased risk for developing diabetes: 5.7-6.4% Diagnostic of diabetes: > or = 6.5%. Monitoring of Diabetes Age (y) Therapeutic Goal (%) Adults: >18 <7.0 Pediatrics: 13-18 <7.5 7-12 <8.0 0- 6 7.5-8.5 [place] [employer]. Diabetes Care 33(S1), Apr 2009. Laboratory - Chemistry and C hemistry - challengeon 09-17-2020 Albumin Ql (U) <7.0 See Below [facility] Work Phone: Comment on above: Reference Range: Not Established Albumin/Creatinine DL <= 20 mg/L (U) [Mass ratio] SEE COMMENT 0.0 - 30.0 [facility] [address] Work Phone: [phone] Comment on above: One or more analytes used in this calculation is outside of the analytical measurement range.Calculation cannot be performed. Creatinine (U) [Mass/Vol] 32.2 mg/dL See Below [facility] Work Phone: Comment on above: Reference Range: 20. 0 - 320.0 Anion gap [Moles/Vol] 14 mmol/L 10 - 20 [facility] Work Phone: [phone] Calcium [Mass/Vol] 9.6 mg/dL 8.6 - 10.6 [facility] [employer] [address] [place] [address] Work Phone: [phone] Chloride [Moles/Vol] 103 mmol/L 98 - 107 [facility] [address] Work Phone: [phone] CO2 [Moles/Vol] 25 mmol/L 21 - 32 [facility] Work Phone: [phone] Creatinine [Mass/Vol] 0.71 mg/dL See Below [facility] [address] Work Phone: Comment on above: Reference Range: 0.5 0 - 1.05 Glucose [Mass/Vol] 106 mg/dL above high threshold 74 - 99 [facility] Work Phone: [phone] Potassium [Moles/Vol] 4.6 mmol/L 3.5 - 5.3 [facility] Work Phone: [phone] Sodium [Moles/Vol] 137 mmol/L 136 - 145 [facility] Work Phone: [phone] Urea nitrogen [Mass/Vol] 18 mg/dL 6 - 23 [facility] [place] Work Phone: [phone] Laboratory - Hematology and Cell countson 09-17-2020 Erythrocyte distribution width (RBC) [Ratio] 13.6 % See Below [facility] [place] Work Phone: [phone] Comment on above: Reference Range: 11. 5 - 14.5 Hematocrit (Bld) [Volume fraction] 41.8 % See Below [facility] [place] Work Phone: [phone] Comment on above: Reference Range: 36. 0 - 46.0 Hemoglobin (Bld) [Mass/Vol] 13.9 g/dL See Below [facility] [place] Work Phone: [phone] Comment on above: Reference Range: 12. 0 - 16.0 MCHC (RBC) [Mass/Vol] 33.3 g/dL See Below [facility] Work Phone: [phone] Comment on above: Reference Range: 32. 0 - 36.0 MCV (RBC) [Entitic vol] 87 fL 80 - 100 [facility] Work Phone: [phone] Platelets (Bld) [#/Vol] 276 10*3/uL 150 - 450 [facility] Work Phone: [phone] RBC (Bld) [#/Vol] 4.80 {x10E12/L} See Below [facility] Work Phone: Comment on above: Reference Range: 4.0 0 - 5.20 WBC (Bld) [#/Vol] 6.4 10*3/uL 4.4 - 11.3 [facility] Work Phone: Lipid Panelon 09-17-2020 Cholesterol [Mass/Vol] 212 mg/dL above high threshold 0 - 199 [facility] [address] Work Phone: Comment on above: . AGE DESIRABLE BORD SAM HIGH HIGH 0-19 Y 0 - 169 170 - 199 >/= 200 20-24 Y 0 - 189 190 - 224 >/= 225 >24 Y 0 - 199 200 - 239 >/= 240 All ranges are based on fasting samples. Specific therapeutic targets will vary based on patient-specific cardiac risk.. Pediatric guidelines reference:Pediatrics 2011, 128(S5). Adult guidelines reference: NCEP ATPIII Guidelines, MAGED 2001, 258:2486-97. Venipuncture immediately after or during the administration of Metamizole may lead to falsely low results. Testing should be performed immediately prior to Metamizole dosing. Cholesterol in HDL [Mass/Vol] 51.0 mg/dL [facility] Work Phone: Comment on above: . AGE VERY LOW LOW N ORMAL HIGH 0-19 Y < 35 < 40 40-45 ---- 20- 24 Y ---- < 40 >45 ---- >24 Y ---- < 40 40-60 >60. Cholesterol in LDL [Mass/Vol] 137 mg/dL above high threshold 0 - 99 [facility] [address] Work Phone: Comment on above: . NEAR BORD AGE ZAIDA RABLE OPTIMAL HIGH HIGH VERY HIGH 0-19 Y 0 - 109 --- 110-129 >/= 130 ---- 20-24 Y 0 - 119 --- 120-159 >/= 160 ---- >24 Y 0 - 99 100-129 130-159 160-189 >/=190. Cholesterol.total/ Cholesterol in HDL [Mass ratio] 4.2 {ratio} [facility] [address] Work Phone: Comment on above: REF VALUESDESIRABLE < 3.4HIGH RISK > 5.0 Triglyceride [Mass/Vol] 118 mg/dL 0 - 149 [facility] [address] Work Phone: Comment on above: . AGE DESIRABLE BORD SAM HIGH HIGH VERY HIGH 0 D-90 D 19 - 174 ---- ---- ----91 D- 9 Y 0 - 74 75 - 99 >/= 100 ---- 10-19 Y 0 - 89 90 - 129 >/= 130 ---- 20-24 Y 0 - 114 115 - 149 >/= 150 ---- >24 Y 0 - 149 150 - 199 200- 499 >/= 500. Venipuncture immediately after or during the administration of Metamizole may lead to falsely low results. Testing should be performed immediately prior to Metamizole dosing. Lipid Panel 24 mg/dL 0 - 40 [facility] [address] Work Phone: [phone] No Panel Informationon 09-17 >60 >60 [facility] [address] Work Phone: Comment on above: CALCULATIONS OF ELSIE MATED GFR ARE PERFORMED USING THE MDRD STUDY EQUATION FOR THE IDMS-TRACEABLE CREATININE METHODS. CLIN CHEM 2007;53:766-72 0.0 {/100_WBC} 0.0-0.0 [facility] [address] Work Phone: TSH - Thyroid Stimulating Ho rmone, Serumon 09-17-2020 TSH Qn 1.88 m[IU]/L See Below [facility] [address] Work Phone: Comment on above: Reference Range: 0.4 4 - 3.98 TSH testing is performed using different testing methodology at [facility] than at other [facility]. Direct result comparisons should only be made within the same method. Tobacco Screening.on Fall risk assessment a) No falls within the last year [address] [facility] [address] Work Phone: Tobacco use status [facility] b) No [facility] [address] [place] Work Phone: Tobacco Screening. b) No [facility] Work Phone: Vitamin D 25-Hydroxyon 09-17 25-hydroxyvitamin D3 [Mass/Vol] 38 ng/mL [facility] [address] Work Phone: Comment on above: .DEFICIENCY: < 20 NG /MLINSUFFICIENCY: 20-29 NG/MLSUFFICIENCY: 30-100 NG/MLTHIS ASSAY ACCURATELY QUANTIFIES THE SUM OFVITAMIN D3, 25-HYDROXY AND VIT D2,25-HYDROXY. Radiologyon 08-21-2020 XR Lumbar spine AP and Lateral Normal [facility] Work Phone: SPINE, LUMBOSACRAL; 2 OR 3 V IEWSon 08-21-2020 SPINE, LUMBOSACRAL; 2 OR 3 VIEWS Patient Name: KARTHIK ANDERSON STUDY: SPINE, LUMBOSACRAL; 2 OR 3 VIEWS INDICATION: right sided low back pain. COMPARISON: None ACCESSION NUMBER(S): [id number] ORDERING CLINICIAN: QUETA SAVAGE FINDINGS: Moderate lumbar degenerative changes, particularly advanced in the lower lumbar facets from L3-S1 and at the disc spaces at the thoracolumbar junction. No fracture seen. No osseous lesion. Alignment grossly normal. IMPRESSION: Moderate lumbar degenerative changes, particularly advanced in the lower lumbar facets from L3-S1 and at the disc spaces at the thoracolumbar junction. 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 I personally obtained the gage and critical portions of the history and physical exam. I reviewed the resident's documentation and discussed the patient with the resident. I agree with the resident's medical decision making as documented in the resident's note. Asymptomatic HTN, has scheduled follow up. Jake Beltran MD EMERGENCY DEPARTMENT - VISIT NOTE -- HISTORY OF PRESENT ILLNESS Chief Complaint Patient presents with * Hypertension pt monitoring b/p at home, concerned with high reading Pharmacoepidemiologist: not needed - patient preferred language is French. The history is provided by the Patient. Karthik Anderson is a 70 year old female PMH anxiety on nadolol AND Ativan, HTN presenting to the ED for anxiety, HTN x 1 day. Started feeling emotional yesterday and then really anxious today. Took Ativan 0.5mg at 0930. Took Nadolol at 0630. She's unsure why she's more anxious today. Lives alone and pandemic has been hard; has been needing the Ativan once a week (previously more like once a month). Feels lonely. Kids do look in on her and support her. Panic attacks started 3 years ago when she lost her brother and sister. No SI, HI, AVH. No access to firearms. Patient is without complaints with HTN and thinks it's from her anxiety. No LH, dizziness, BAGLEY, hematuria, flank pain. ------- REVIEW OF SYSTEMS --------- Review of Systems Constitutional: Negative for fever. HENT: Negative for rhinorrhea. Eyes: Negative for pain and visual disturbance. Respiratory: Negative for cough and shortness of breath. Cardiovascular: Negative for chest pain. Gastrointestinal: Negative for abdominal pain, diarrhea and vomiting. Genitourinary: Negative for dysuria. Skin: Negative for rash. Neurological: Negative for dizziness, light-headedness and headaches. Psychiatric/Behavioral: Negative for confusion. The patient is nervous/anxious. PAST HISTORY Pertinent Past History: Past Medical History: Diagnosis Date * History of hysterectomy Pertinent Social History: Social History Occupational History * Not on file Tobacco Use * Smoking status: Never Smoker * Smokeless tobacco: Never Used Substance and Sexual Activity * Alcohol use: Yes * Drug use: Not on file * Sexual activity: Not on file --------- PHYSICAL EXAM BP (!) 167/104 Pulse 82 Temp 97.6 ???F (36.4 ???C) (Oral) Resp 15 Wt 218 lb (98.9 kg) SpO2 100% BMI 37.42 kg/m??? General- well-appearing, well-developed, no acute distress Skin- warm, non-diaphoretic, no rashes Head- normocephalic, atraumatic Eyes- extraocular movements intact, no scleral icterus Mouth- good hygiene, MMM Neck- supple, normal ROM Cardiovascular- RRR, no murmurs Respiratory- clear to auscultation, normal work of breathing Abdomen- soft, NT, ND, +BS MSK- normal ROM, no swollen joints Extremities- no edema, cyanosis, or clubbing Neuro- AOx3, moves all four extremities, no facial droop, normal sensation, normal motor strength Psych- mood is anxious, affect is congruent, normal behavior, no SI/HI/AVH MEDICAL DECISION MAKING and ED COURSE MDM: Karthik Anderson 70 year old female p/w HTN, anxiety. Asymptomatic with HTN without signs/symptoms of end organ ischemia. Additionally, HTN had improved on my initial evaluation (200s --> 150s SBP). Patient does appear anxious and reports feeling lonely lately. Denies SI/HI/AVH and children are texting her on my evaluation. 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 Patient agrees to follow up with her PCP about her HTN AND anxiety. Patient was well-appearing, HD stable, afebrile, and saturating well on RA. The clinical suspicion, plan of care, and management were discussed with the patient, and the patient agreed with the plan. The patient agrees, understands, and is comfortable with this plan. Nursing triage and assessment notes reviewed and incorporated. Chart Reviewed. Summary of pertinent elements includes: - No recent ED visits for similar Course: ED Course as of Aug 19 1409 Mon Aug 19, 2020 1211 BP: 156/83 [] ED Course User Index [] Jake Beltran MD Evaluated by EM attending Jake Beltran -- IMPRESSION AND DISPOSITION Clinical Impression Diagnosis Comment Anxiety [F41.9] Hypertension, unspecified type [I10] Dispo (more content not included)... Normal [facility] Mamm - Screening Mammogram w / Tomosynthesison 07-18-2020 MG Breast screening Interpreted by: YAIMA ROSARIO07/18/20 09:56MRN: [id number] Name: KARTHIK ANDERSON STUDY:DIGITAL MAMM SCREENING W/ JOSE JUAN; 07/18/2020 8:33 am ORDERING CLINICIAN:QUETA SAVAGE INDICATION:Screening. Family history of breast cancer with her sister diagnosedat age 64. COMPARISON:07/14/2019, 07/12/2018, 07/06/2016 FINDINGS:2D and tomosynthesis images were reviewed at 1 mm slice thickness. There are areas of scattered fibroglandular tissue. No suspiciousmasses or calcifications are identified. IMPRESSION:No mammographic evidence of malignancy. BI-RADS CATEGORY: Category: 1 - Negative.Recommendation: 1 Year Screening. For any future breast imaging appointments, please call [phone]). Patient letter sent SNORM Electronically signed by: YAIMA ROSARIO 07/18/20 09:56 Normal [facility] [address] Work Phone: [facility] 07-05-2019 XR Cervical spine 3 views Interpreted by: CHRISTINA GUTIÉRREZ07/05/19 17:28MRN: [id number] Name: KARTHIK ANDERSON STUDY:SPINE, CERVICAL, 2 OR 3 VIEWS;; 07/05/2019 1:43 pm INDICATION:pain. COMPARISON:None. ORDERING CLINICIAN:QUETA SAVAGE FINDINGS:AP and lateral views of the cervical spine are obtained. There is no fracture. There is no misalignment. No focal lysis isseen. Mild degenerative disc changes are seen at C5-6 and C6-7. Thereis minimal sclerosis of the facet joints present from the C3-4 toC5-6 levels. IMPRESSION:Cervical spondylosis. No acute abnormality. Electronically signed by: CHRISTINA GUTIÉRREZ 07/05/19 17:28 Normal [facility] Work Phone: Amphetamines Screen Ql (U) Negative NEGATIVE [facility] Work Phone: Comment on above: CUTOFF LEVEL: 500 NG /ML Cross-reactivity has been reported with high concentrations of the following drugs: buproprion, chloroquine, chlorpromazine, ephedrine, mephentermine, fenfluramine, phentermine, phenylpropanolamine, pseudoephedrine, and propranolol. Benzoylecgonine Screen Ql (U) Negative NEGATIVE [facility] Work Phone: Comment on above: CUTOFF LEVEL: 150 NG /ML Methadone Screen Ql (U) Negative NEGATIVE [facility] Work Phone: Comment on above: CUTOFF LEVEL: 150 NG /ML The metabolite J-uvgpu-qcbwhzembkzdan (LAAM) is not detected by this method in concentrations that would be found in the urine of patients on LAAM therapy. Opiates Screen Ql (U) Negative NEGATIVE [facility] Work Phone: Comment on above: CUTOFF LEVEL: 300 NG /ML The opiate screen does not detect fentanyl, meperidine, or tramadol. Oxycodone is not consistently detected (refer to Oxycodone Screen, Urine result). Oxycodone+Oxymorph one Screen Ql (U) Negative NEGATIVE [facility] Work Phone: Comment on above: CUTOFF LEVEL: 100 NG /ML This test will accurately detect both oxycodone and oxymorphone. SEE BELOW [facility] Work Phone: Comment on above: Drug screen results are presumptive and should not be used to assess compliance with prescribed medication. Definitive confirmatory drug testing has been added to this sample for any positive screen result and will be reported separately. .Toxicology screening results are reported qualitatively. The concentration must be greater than or equal to the cutoff to be reported as positive. The concentration at which the screening test can detect an individual drug or metabolite varies. The absence of expected drug(s) and/or drug metabolite(s) may indicate non-compliance, inappropriate timing of specimen collection relative to drug administration, poor drug absorption, diluted/adulterated urine, or limitations of testing. For medical purposes only; not valid for forensic use. .Interpretive questions should be directed to the laboratory medical directors. Urinalysison 07-05-2019 Barbiturates Screen Ql (U) Negative NEGATIVE [facility] Work Phone: Comment on above: CUTOFF LEVEL: 200 NG /ML Benzodiazepines Ql (U) Negative NEGATIVE [facility] Work Phone: Comment on above: CUTOFF LEVEL: 200 NG /ML Cannabinoids Screen Ql (U) Negative NEGATIVE [facility] Work Phone: Comment on above: CUTOFF LEVEL: 50 NG/ ML Phencyclidine Ql (U) Negative NEGATIVE [facility] Work Phone: Comment on above: CUTOFF LEVEL: 25 NG/ ML Cross-reactivity has been reported with dextromethorphan. Otheron 02-22-2019 XR Knee 1 or 2 views Interpreted by: DWMSBQ20/31/19 17:44MRN: [id number] Name: KARTHIK ANDERSON STUDY:KNEE; 1 OR 2 VIEWS; 02/22/2019 8:51 am INDICATION:left knee pain. COMPARISON:11/30/2018 ORDERING CLINICIAN:EDGAR RICHARD FINDINGS:Left knee, two views The patient is status post left total knee arthroplasty, cemented andtricompartmental with patellar resurfacing. There is a moderate-sizedjoint effusion. No periprosthetic fracture or lucency seen IMPRESSION:No evidence of hardware failure after left total knee arthroplastyElectronically signed by: KANU 02/23/19 17:44 Normal [facility] Work Phone: Hematologyon 10-18-2018 ABO group Nom (Bld) B [facility] Work Phone: Rh immune globulin screen (Bld) [Interp] Negative [facility] Work Phone: Complete Blood Count + Diffe rentialon 10-11-2018 Basophils (Bld) [#/Vol] 0.06 {x10E9/L} See Below [facility] Work Phone: Comment on above: Reference Range: 0.0 0 - 0.10 Basophils/100 WBC (Bld) 1.0 % 0.0 - 2.0 [facility] [place] Work Phone: Eosinophils (Bld) [#/Vol] 0.13 {x10E9/L} See Below [facility] AssetAvenueN[facility] [place] Work Phone: Comment on above: Reference Range: 0.0 0 - 0.70 Eosinophils/100 WBC (Bld) 2.2 % 0.0 - 6.0 [facility]leyRe[facility] ServicesEx[facility] Work Phone: Erythrocyte distribution width (RBC) [Ratio] 14.1 % See Below [facility] [place] Work Phone: Comment on above: Reference Range: 11. 5 - 14.5 Hematocrit (Bld) [Volume fraction] 42.2 % See Below [facility] [place] Work Phone: Comment on above: Reference Range: 36. 0 - 46.0 Hemoglobin (Bld) [Mass/Vol] 13.5 g/dL See Below [facility] [place] Work Phone: Comment on above: Reference Range: 12. 0 - 16.0 Lymphocytes (Bld) [#/Vol] 1.24 {x10E9/L} See Below [facility] [place] Work Phone: Comment on above: Reference Range: 1.2 0 - 4.80 Lymphocytes/100 WBC (Bld) 21.0 % See Below [facility] AssetAvenueN[facility] [place] Work Phone: Comment on above: Reference Range: 13. 0 - 44.0 MCHC (RBC) [Mass/Vol] 32.0 g/dL See Below [facility] Work Phone: Comment on above: Reference Range: 32. 0 - 36.0 MCV (RBC) [Entitic vol] 90 fL 80 - 100 [facility] [place] Work Phone: Monocytes (Bld) [#/Vol] 0.58 {x10E9/L} See Below [facility] Work Phone: Comment on above: Reference Range: 0.1 0 - 1.00 Monocytes/100 WBC (Bld) 9.8 % 2.0 - 10.0 [facility] Work Phone: Neutrophils (Bld) [#/Vol] 3.88 {x10E9/L} See Below [facility] [employer] Work Phone: Comment on above: Reference Range: 1.2 0 - 7.70 Neutrophils/100 WBC (Bld) 65.8 % See Below [facility] [employer] Work Phone: Comment on above: Reference Range: 40. 0 - 80.0 Platelets (Bld) [#/Vol] 228 {x10E9/L} 150 - 450 [facility] Work Phone: RBC (Bld) [#/Vol] 4.70 {x10E12/L} See Below [facility] [employer] Work Phone: Comment on above: Reference Range: 4.0 0 - 5.20 WBC (Bld) [#/Vol] 5.9 {x10E9/L} 4.4 - 11.3 [facility] Work Phone: Complete Blood Count + Differential 0.2 % 0.0 - 0.9 [facility] Work Phone: Comment on above: Percent differential counts (%) should be interpreted in the context of the absolute cell counts (cells/L). Hematologyon 10-11-2018 ABO group Nom (Bld) B [facility] [employer] Work Phone: Blood group antibody screen Ql Negative [facility] [employer] Work Phone: Rh immune globulin screen (Bld) [Interp] Negative [facility] Work Phone: MRSA Screenon 10-11-2018 Staphylococcus sp identified Org specific cx Nom (Unsp spec) MICRSLT [facility] Work Phone: Comment on above: PATIENT: SANDRA ANDERSON LOCATION: [facility]#: [id number] : 48 AGE: SEX: F ORDERED BY: ALLEN RICHARD: ANTERIOR NARES COLLECTED: 10/11/18 08:26ANTIBIOTICS AT FRANCY.: RECEIVED : 10/11/18 19:27SITE: Nasal R E S U L T S STAPH/MRSA SCREEN FINAL 10/13/18 09:26 NO Staphylococcus aureus ISOLATED. Metabolic Panelon 10-11-2018 Anion gap [Moles/Vol] 13 mmol/L 10 - 20 [facility] Work Phone: Calcium [Mass/Vol] 9.1 mg/dL 8.6 - 10.3 [facility] Work Phone: Chloride [Moles/Vol] 103 mmol/L 98 - 107 [facility] Work Phone: CO2 [Moles/Vol] 25 mmol/L 21 - 32 [facility] Work Phone: Creatinine [Mass/Vol] 0.64 mg/dL See Below [facility] Work Phone: Comment on above: Reference Range: 0.5 0 - 1.05 Glucose [Mass/Vol] 104 mg/dL above high threshold 74 - 99 [facility] Work Phone: Potassium [Moles/Vol] 3.9 mmol/L 3.5 - 5.3 [facility] Work Phone: Sodium [Moles/Vol] 137 mmol/L 136 - 145 [facility] Work Phone: Urea nitrogen [Mass/Vol] 15 mg/dL 6 - 23 [facility] Work Phone: Otheron 10-11-2018 >60 >60 [facility] Work Phone: Comment on above: CALCULATIONS OF ELSIE MATED GFR ARE PERFORMED USING THE MDRD STUDY EQUATION FOR THE IDMS-TRACEABLE CREATININE METHODS. CLIN CHEM 2007;53:766-72 416 1 [facility] [place] Work Phone: Comment on above: Ordering Provider: Tarik rema Hunt [id number] [phone] 1 [facility] Work Phone: Comment on above: Ordering Provider: Tarik rema Hunt 24049 65 1 [facility] Work Phone: Comment on above: Ordering Provider: Tarik rema Hunt [phone] [facility] Work Phone: Comment on above: Ordering Provider: Tarik rema Hunt [id number] [email or web address] [id number] [facility] Work Phone: Comment on above: Ordering Provider: Tarik rema Hunt [phone] 1 1 [facility] Work Phone: Comment on above: Ordering Provider: Tarik rema Hunt 82400 Normal sinus rhythm [facility] [place] Work Phone: Comment on above: Ordering Provider: Tarik rema Hunt [phone] [facility] Work Phone: Comment on above: Ordering Provider: Tarik Hunt [phone] 1 [facility] Work Phone: Comment on above: Ordering Provider: Tarik Hunt [phone] 90 1 [facility] Work Phone: Comment on above: Ordering Provider: Tarik hodgson [place] 90819 [phone] 1 [facility] Work Phone: Comment on above: Ordering Provider: Tarik hodgson Gilbert 64757 183 1 [facility] Work Phone: Comment on above: Ordering Provider: Tarik hodgson Gilbert 58727 137 1 [facility] Work Phone: Comment on above: Ordering Provider: Tarik hodgson [place] 26326 146 1 [facility] Work Phone: Comment on above: Ordering Provider: Tarik hodgson Gilbert 32149 210 1 [facility] Work Phone: Comment on above: Ordering Provider: Tarik hodgson Gilbert 96016 32 1 [facility] [place] Work Phone: Comment on above: Ordering Provider: Tarik nayelydeniz [place] [address] Vital Signs Date Time Vital Sign Value Performing Clinician Facility 09-01-2023 10:19040 Body height 165.1 cm Clement Adamson MD Work Phone: [facility] 09-01-2023 10:040 Body mass index (BMI) [Ratio] 34.11 kg/m2 Clement Adamson MD Work Phone: [facility] 09-01-2023 10:040 Body weight 92.99 kg Clement Adamson MD Work Phone: [facility] 09-01-2023 10:040 Diastolic blood pressure 80 mm[Hg] Clement Adamson MD Work Phone: [facility] 09-01-2023 10:040 Heart rate 79 /min Clement Adamson MD Work Phone: [facility] 09-01-2023 10:19-0400 SaO2% (BldA) [Mass fraction] 99 % Clement Adamson MD Work Phone: [facility] 09-01-2023 10:19-0400 Systolic blood pressure 160 mm[Hg] Clement Adamson MD Work Phone: [facility] 08-02-2023 08:56-0400 Body height 165.1 cm [facility] 08-02-2023 08:56-0400 Body mass index (BMI) [Ratio] 34.28 kg/m2 [facility] 08-02-2023 08:56-0400 Body weight 93.44 kg [facility] 06-11-2022 10:25-0500 Diastolic blood pressure 79 mm[Hg] Clement CeciDimitry Work Phone: [facility] [facility] [address] Work Phone: 06-11-2022 10:25-0500 Systolic blood pressure 130 mm[Hg] Clement Aliyaard Work Phone: [facility] [facility] [address] Work Phone: 06-11-2022 09:35-0500 Body height 165.1 cm Clement Aliyaard Work Phone: [facility] [facility] [address] Work Phone: 06-11-2022 09:35-0500 Body mass index (BMI) [Ratio] 34.61 kg/m2 Clement Pisanoard Work Phone: [facility] [facility] [address] [...] temperature 98 [degF] Clement Adamson Work Phone: [facility] [address] Work Phone: 06-11-2021 09:42-0500 Diastolic blood [...] pressure 137 mm[Hg] Clement Adamson Work Phone: [facility] [place] Work Phone: 09-17-2020 12:01-0400 Diastolic blood pressure [...] 15:02-0400 Systolic blood pressure 154 mm[Hg] Clement dAamson Work Phone: [facility] [facility] [address] [...] 11:20-0500 BMI (Body Mass Index) 36.94 kg/m2 Queta Savage [facility] 260 Work Phone: 06-20-2020 11:20-0500 Body weight 100.7 kg Queta Savage [facility] 260 Work Phone: 06-20-2020 11:20-0500 BP Diastolic 84 mm[Hg] Queta Savage [facility] 260 Work Phone: 06-20-2020 11:20-0500 BP Systolic 152 mm[Hg] Queta Savage [facility] [address] Work Phone: 06-20-2020 11:20-0500 BSA (Body Surface Area) 2.07 m2 Queta Savage [facility] [address] Work Phone: 06-20-2020 11:20-0500 Pulse (Heart Rate) 73 /min Queta Savage [facility] [address] Work Phone: 06-20-2020 11:20-0500 Pulse Oximetry 98 % Queta Savage [facility] 260 Work Phone: 07-05-2019 12:28-0400 BMI (Body Mass Index) 36.78 kg/m2 [facility] Work Phone: 07-05-2019 12:28-0400 Body weight 100.25 kg [facility] Work Phone: 07-05-2019 12:28-0400 BP Diastolic 82 mm[Hg] [facility] Work Phone: 07-05-2019 12:28-0400 BP Systolic 140 mm[Hg] [facility] Work Phone: 07-05-2019 12:28-0400 BSA (Body Surface Area) 2.06 m2 [facility] Work Phone: 07-05-2019 12:28-0400 Pulse (Heart Rate) 82 /min [facility] Work Phone: 07-05-2019 12:28-0400 Pulse Oximetry 97 % [facility] [facility] Work Phone: 06-24-2019 12:43-0500 Body Temperature 97.8 [degF] Edgar Richard MP-[facility] Work Phone: Comment on above: Method: Oral 06-24-2019 12:43-0500 BP Diastolic 91 mm[Hg] Edgar Richard [facility] Work Phone: 06-24-2019 12:43-0500 BP Systolic 144 mm[Hg] Edgar [facility] Work Phone: 06-24-2019 12:43-0500 Pulse (Heart Rate) 70 /min Edgar Richard [facility] Work Phone: 06-24-2019 12:43-0500 Pulse Oximetry 98 % Edgar Richard [facility] Work Phone: Comment on above: Source: RA 06-24-2019 12:43-0500 Respiratory Rate 18 /min Edgar Richard [facility] [place] Work Phone: 06-24-2019 12:43-0500 0 1 Edgar Richard -[facility] [place] Work Phone: Comment on above: Pain Scale 05-15-2019 17:26-0500 BMI (Body Mass Index) 36.78 kg/m2 Edgar Richard [facility] Work Phone: 05-15-2019 17:26-0500 Body weight 100.25 kg [facility] Work Phone: 05-15-2019 17:26-0500 BP Diastolic 70 mm[Hg] [facility] Work Phone: 05-15-2019 17:26-0500 BP Systolic 128 mm[Hg] Edgar Richard [facility] Work Phone: 05-15-2019 17:26-0500 BSA (Body Surface Area) 2.06 m2 Edgar Richard [facility] Work Phone: 05-15-2019 17:26-0500 Pulse (Heart Rate) 93 /min Edgar Richard [facility] Work Phone: 05-15-2019 17:26-0500 Pulse Oximetry 98 % Edgar Richard [facility] Work Phone: 02-22-2019 11:02-0400 BMI (Body Mass Index) 34.95 kg/m2 Edgar Richard [facility] Work Phone: 02-22-2019 11:02-0400 Body weight 95.26 kg Edgar Richard [facility] Work Phone: 02-22-2019 11:02-0400 BSA (Body Surface Area) 2.02 m2 Edgar [facility] Work Phone: 02-22-2019 11:02-0400 Height 165.1 cm Edgar [facility] Work Phone: 01-18-2019 11:26-0400 BMI (Body Mass Index) 34.95 kg/m2 Edgar [facility] Work Phone: 01-18-2019 11:26-0400 Body weight 95.26 kg Edgar Richard [facility] Work Phone: 01-18-2019 11:26-0400 BSA (Body Surface Area) 2.02 m2 Edgar [facility] Work Phone: 01-18-2019 11:26-0400 Height 165.1 cm Edgar Richard [facility] Work Phone: 11-30-2018 10:38-0400 BMI (Body Mass Index) 34.95 kg/m2 Edgar [facility] Work Phone: 11-30-2018 10:38-0400 Body weight 95.26 kg Edgar Richard [facility] Work Phone: 11-30-2018 10:38-0400 BSA (Body Surface Area) 2.02 m2 Edgar Richard [facility] Work Phone: 11-30-2018 10:38-0400 Height 165.1 cm Edgar Richard [facility] Work Phone: 10-26-2018 15:07-0400 BMI (Body Mass Index) 34.95 kg/m2 Edgar Richard [facility] Work Phone: 10-26-2018 15:07-0400 Body weight 95.26 kg Edgar Richard [facility] Work Phone: 10-26-2018 15:07-0400 BSA (Body Surface Area) 2.02 m2 Edgar [facility] Work Phone: 10-26-2018 15:07-0400 Height 165.1 cm Edgar Richard [facility] [facility] Work Phone: 09-29-2018 16:08-0400 BMI (Body Mass Index) 34.95 kg/m2 Edgar Richard [facility] [facility] Work Phone: 09-29-2018 16:08-0400 Body weight 95.26 kg Edgar Richard [facility] Work Phone: 09-29-2018 16:08-0400 BSA (Body Surface Area) 2.02 m2 Edgar Richard [facility] Work Phone: 09-29-2018 16:08-0400 Height 165.1 cm Edgar [facility] Work Phone: Encounters Encounter Date Encounter Type Care Provider Facility Start: 12-13-2023 End: 12-13-[address] [facility] Ambulatory Start: 12-05-2023 End: 12-05-2023 Letter encounter [facility] Start: 09-03-2023 End: 09-04-2023 ambulatory [facility] Start: 09-03-2023 End: 09-03-2023 Subsequent hospital visit by physician [facility] 2 [facility] Comment on above: Hyperlipidemia, unsp ecified hyperlipidemia type Start: 09-01-2023 End: 09-01-2023 Patient encounter procedure Clement Adamson MD Work Phone: [facility] Comment on above: Medicare annual well ness visit, subsequent (Primary Dx); Need for hepatitis C screening test; Immunization due; IFG (impaired fasting glucose); Hyperlipidemia, unspecified hyperlipidemia type; Essential hypertension; Allergic rhinitis, unspecified seasonality, unspecified trigger Start: 09-01-2023 End: 09-02-2023 ambulatory [facility] Start: 09-01-2023 End: 09-02-2023 Encounter for general adult medical examination without abnormal findings [facility] Start: 08-29-2023 Letter encounter Alvaro mckee Start: 08-02-2023 End: 08-03-2023 ambulatory [facility] Start: 08-02-2023 End: 08-02-2023 Subsequent hospital visit by physician Brayan [id number] [facility] Comment on above: Encounter for screen ing mammogram for malignant neoplasm of breast Start: 04-30-2023 End: 04-30-2023 ambulatory [facility] Ambulatory Start: 02-11-2023 End: 02-12-2023 ambulatory [facility] Start: 01-07-2023 End: 01-07-2023 Office outpatient visit 15 minutes Clement Adamson MD Work Phone: [facility] Comment on above: Abnormal urine odor (Primary Dx); Benign paroxysmal positional vertigo of left ear Start: 01-07-2023 End: 01-07-2023 ambulatory [facility] Ambulatory Start: 08-30-2022 Letter encounter Alvaro mckee Start: 07-31-[address] Clement Adamson Facility:[id number] Start: 06-25-2022 Office outpatient vi sit 15 minutes Clement Adamson Work Phone: [facility] [facility] [address] Work Phone: Start: 06-25-[address] Clement Adamson Facility:[id number] Start: 06-11-2022 Chart Update Clement juan Work Phone: [address] [facility] [address] Work Phone: Start: 06-11-[address] Clement Adamson Facility:[id number] Start: 06-01-2022 Letter encounter [facility] Start: 05-21-2022 Rx Renewal Clement Herbert-[place] eonard Work Phone: [address] [facility] [address] Work Phone: Start: 04-08-[address] Clement Adamson Facility:[id number] Start: 02-02-2022 Rx Renewal Clement Herbert-L eonard Work Phone: [address] [facility] [address] Work Phone: Start: 01-02-2022 Rx Renewal Clement Herbert-L eonard Work Phone: [address] [facility] [address] Work Phone: Start: 09-16-2021 Office outpatient vi sit 15 minutes Clement Adamson Work Phone: [address] [facility] [address] Work Phone: Start: 09-16-[address] Clement Adamson Facility:[id number] Start: 09-07-2021 Letter encounter [facility] Start: 09-02-2021 Rx Renewal Clement Herbert-[place] e[place] Work Phone: [address] [facility] [address] Work Phone: Start: 08-25-2021 Office outpatient ne w 20 minutes Clement Adamson Work Phone: [facility] 2500 Work Phone: Start: 08-25-2021 ambulatory Referral Self Facility: [id number] Start: 07-30-2021 Rx Renewal Clement Herbert-[place] e[place] Work Phone: [address] [facility] [address] Work Phone: Start: 07-21-2021 AUDIT Clement Christen-L eonard Work Phone: [address] [facility] [address] Work Phone: Start: 07-21-[address] Clement Adamson Facility:[id number] Start: 07-16-2021 Rx Renewal Clement ChristenClaytonWashington eonard Work Phone: [address] [facility] [address] Work Phone: Start: 06-24-2021 AUDIT Clement CecicarmelitaWashington eonard Work Phone: [address] [facility] [address] Work Phone: Start: 06-12-2021 Chart Update Clement Zavala eonard Work Phone: [address] [facility] [address] Work Phone: Start: 06-11-2021 EPV, Provider: Clement Adamson, Status: Pen, Time: 8:00 AM Clement Adamson Work Phone: [address] [facility] [address] Work Phone: Start: 06-11-2021 Office outpatient vi sit 25 minutes Clement Adamson Work Phone: [address] [facility] [address] Work Phone: Start: 06-10-2021 AUDIT Clement Zavala eonard Work Phone: [address] [facility] [address] Work Phone: Start: 03-04-2021 Rx Renewal Clement CecidaylinClaytonWashington eonard Work Phone: [address] [facility] [address] Work Phone: Start: 12-17-2020 Office outpatient vi sit 15 minutes Clement Adamson Work Phone: [address] [facility] [address] Work Phone: Start: 12-10-2020 AUDIT Clementgracie HerbertClaytonWashington eonard Work Phone: [address] [facility] [address] Work Phone: Start: 10-01-2020 Current tobacco non- user cad cap copd pv dm Clement Adamson Work Phone: [facility] [place] Work Phone: Start: 09-17-2020 Office outpatient vi sit 25 minutes Clement Pisanoard Work Phone: [facility] [address] Work Phone: Start: 08-19-2020 End: 08-19-2020 Emergency department patient visit UNKNOWN PROVIDER Facility[facility] Start: 06-20-2020 Patient encounter procedure Queta Savage [facility] Work Phone: Start: 11-16-2019 Patient encounter procedure [facility] Work Phone: Start: 11-14-2019 Patient encounter procedure [facility] Work Phone: Start: 11-09-2019 Patient encounter procedure [facility] Work Phone: Start: 11-07-2019 Patient encounter procedure [facility] Work Phone: Start: 11-02-2019 Patient encounter procedure Queta Savage [facility] Work Phone: Start: 10-31-2019 Patient encounter procedure [facility] Work Phone: Start: 10-26-2019 Patient encounter procedure [facility] Work Phone: Start: 10-24-2019 Patient encounter procedure [facility] Work Phone: Start: 10-18-2019 Patient encounter procedure [facility] Work Phone: Start: 07-10-2019 Patient encounter procedure [facility] Work Phone: Start: 07-05-2019 Patient encounter procedure [facility] Work Phone: Start: 06-24-2019 Patient encounter procedure Edgar Richard [facility] [place] [place] Work Phone: Start: 05-15-2019 Patient encounter procedure Edgar Richard [facility] Work Phone: Start: 02-22-2019 Patient encounter procedure Edgar Hilary [facility] Work Phone: Start: 01-18-2019 Patient encounter procedure Edgar Hilary [facility] Work Phone: Start: 12-23-2018 Patient encounter procedure Edgar Richard [facility] Work Phone: Start: 11-30-2018 Patient encounter procedure Edgar Richard [facility] Work Phone: Start: 10-26-2018 Patient encounter procedure Edgar Richard [facility] Work Phone: Start: 09-29-2018 Patient encounter procedure Edgar Hilary [facility] Work Phone: Start: 08-10-2018 Patient encounter procedure Edgar Hilary [facility] Work Phone: Start: 07-07-2018 Patient encounter procedure Edgar Hilary [facility] Work Phone: Start: 06-21-2018 Patient encounter procedure Edgar Richard [facility] Work Phone: Start: 06-18-2018 Patient encounter procedure Edgar Hilary [facility] Work Phone: Start: 02-24-2018 Patient encounter procedure Edgar Richard [facility] Work Phone: Start: 08-03-2017 Patient encounter procedure Edgar Richard [facility] Work Phone: Start: 02-02-2017 Patient encounter procedure Edgar Richard [facility] Work Phone: Patient encounter procedure Clement ChristenClaytonErickson Work Phone: [facility] [facility] [address] Work Phone: Patient encounter status Clement OrnelasdaylinIdris Work Phone: [address] [facility] [address] Work Phone: Procedures Date Procedure Procedure Detail Performing Clinician Start: 09-03-2023 CT CARDIAC SCORING W O IV CONTRAST CLEMENT ADAMSON Start: 09-01-2023 ALBUMIN, URINE RANDOM S URASHADCAPRI ADAMSON Start: 09-01-2023 Bacteria identified in Urine by Culture CLEMENT ADAMSON Start: 09-01-2023 CBC panel - Blood by Automated count CLEMENT ADAMSON Start: 09-01-2023 Comprehensive metabo lic 2000 panel - Serum or Plasma CLEMENT ADAMSON Start: 09-01-2023 Hemoglobin A1c/Hemoglobin.total in Blood CLEMENT ADAMSON Start: 09-01-2023 HEPATITIS C ANTIBODY DICKINSON CLAUDIA ADAMSON Start: 09-01-2023 Lipid panel CLEMENT PLASENCIA Start: 09-01-2023 Thyrotropin [Units/v olume] in Serum or Plasma CLEMENT ADAMSON Start: 09-01-2023 PNEUMOCOCCAL CONJUGA TE VACCINE 20-VALENT IM CLEMENT ADAMSON Start: 09-01-2023 Lipid 1996 panel - S leon or Plasma Brayan 2 Start: 08-02-2023 BI MAMMO BILATERAL SCREENING TOMOSYNTHESIS CLEMENT ADAMSON Start: 08-02-2023 End: 08-02-2023 Screening digital breast tomosynthesis bi Clement Adamson MD Work Phone: Start: 02-11-2023 Bacteria identified in Urine by Culture CLEMENT ADAMSON Start: 02-11-2023 POCT UA AUTOMATED MA NUALLY RESULTED CLEMENT ADAMSON Start: 07-31-2022 Mammography Clement Plasencia MD Work Phone: Start: 06-11-2022 Lipid 1996 panel - S leon or Plasma Clement Adamson MD Work Phone: Start: 07-08-2020 MG Breast screening Beth Savage Start: 06-20-2020 Noninvasive colorect al cancer DNA and occult blood screening [Presence] in Stool Queta Savage Start: 06-17-2019 MG Breast screening Roderick Cmnancy Start: 02-13-2019 Xray Knee 1 or 2 View W sourav Cmhernanjudy Start: 11-30-2018 Basic metabolic 1998 panel - Serum or Plasma Edgar Hilary Start: 11-30-2018 CBC W Auto Different ial panel - Blood Edgar Hilary Start: 11-22-2018 Xray Knee 1 or 2 View W sourav Hilary Start: 03-25-2017 Colonoscopy Clement Plasencia MD Work Phone: Start: 03-28-2014 Colonoscopy History of [place] er Surgery Edgar Richard Hysterectomy Edgar Galvez lge Other bilateral liga tion and division of fallopian tubes Edgar Richard Plan of Treatment Date Care Activity Detail Author Start: 12-24-2029 DTaP/Tdap/Td Vaccine s (3 - Td or Tdap) DTaP/Tdap/Td Vaccines (3 - Td or Tdap) [facility] Start: 12-24-2029 Tetanus vaccination [facility] Start: 08-31-2028 Lipid panel Lipid Panel [facility] Start: 06-11-2027 Lipid panel Lipid Panel [facility] Start: 03-25-2027 Screening for malignant neoplasm of colon [facility] Start: 07-22-2026 Screening for malignant neoplasm of colon FIT-DNA (Cologuard) [facility] Start: 09-01-2024 Medicare Annual Wellness Visit Medicare Annual Wellness Visit (AWV) [facility] Start: 08-31-2024 Hemoglobin A1c measurement Diabetes: Hemoglobin A1C [facility] Start: 08-01-2024 Screening for malignant neoplasm of breast Mammogram [facility] Start: 07-31-2024 Screening for osteoporosis Bone Density Scan [facility] Start: 03-28-2024 [facility]ening [facility] malignant [facility] Start: 01-25-2024 Influenza vaccination Influenza Vacc ine (#[facility]) [facility] Start: 09-01-2023 End: 08-31-2024 CBC panel - Blood by Automated count [facility] Work Phone: Comment on above: Expected: 09/01/2023 (Approximate), Expires: 08/31/2024 Start: 09-01-2023 End: 08-31-2024 Comprehensive metabolic 2000 panel - Serum or Plasma [facility] Work Phone: Comment on above: Expected: 09/01/2023 (Approximate), Expires: 08/31/2024 Start: 09-01-2023 End: 08-31-2024 CT for calcium scoring WO contrast and CTA W contrast IV Heart and coronary arteries CT cardiac scoring wo IV contrast Imaging Routine Hyperlipidemia, unspecified hyperlipidemia type Expected: 09/01/2023, Expires: 08/31/2024 [facility] Work Phone: Comment on above: Expected: 09/01/2023 , Expires: 08/31/2024 Start: 09-01-2023 End: 08-31-2024 Hemoglobin A1c/Hemoglobin.total in Blood [facility] Work Phone: Comment on above: Expected: 09/01/2023 (Approximate), Expires: 08/31/2024 Start: 09-01-2023 End: 08-31-2024 Hepatitis C virus Ab [Presence] in Serum [email or web address] Service Area Work Phone: Comment on above: Expected: 09/01/2023 (Approximate), Expires: 08/31/2024 Start: 09-01-2023 End: 08-31-2024 Lipid 1996 panel - Serum or Plasma [facility] Work Phone: Comment on above: Expected: 09/01/2023 (Approximate), Expires: 08/31/2024 Start: 09-01-2023 End: 08-31-2024 Microalbumin/Creatinin e [Mass Ratio] in Urine [facility] Work Phone: Comment on above: Expected: 09/01/2023 (Approximate), Expires: 08/31/2024 Start: 09-01-2023 End: 08-31-2024 Thyrotropin [Units/volume] in Serum or Plasma [facility] Work Phone: Comment on above: Expected: 09/01/2023 (Approximate), Expires: 08/31/2024 Start: 09-01-2023 End: 09-01-2023 Patient encounter procedure 09/01/2023 10:20 AM EDT Office Visit [facility] [address] [place] [address] Clement Adamson MD [address] [place] [address] [facility] Start: 08-01-2023 Screening for malignant neoplasm of breast Mammogram [facility] Start: 08-01-2023 Screening for osteoporosis Bone Density Scan [facility] Start: 06-12-2023 Medicare Annual Wellness Visit Medicare Annual Wellness Visit (AWV) [facility] Start: 06-11-2023 Hemoglobin A1c measurement Diabetes: Hemoglobin A1C [facility] Start: 01-07-2023 End: 04-15-2023 Bacteria identified in Urine by Culture Urine Culture Microbiology Routine Abnormal urine odor Expected: 01/07/2023 (Approximate), Expires: 04/15/2023 [facility] [[email or web address] Service Area Work Phone: Comment on above: Expected: 01/07/2023 (Approximate), Expires: 04/15/2023 Start: 12-25-2022 COVID-19 Vaccine ( season) COVID-19 Vaccine ( season) [facility] Start: 12-25-2022 Influenza vaccination Influenza Vacc ine (#1) [facility] Start: 06-11-2022 PHYSICAL, Provider: Clement Adamson, Status: Pen, Time: 10:00 AM PHYSICAL, Provider: Clement Adamson, Status: Pen, Time: 10:00 AM -Clive [facility] - [facility] [address] Work Phone: Start: 2022 COVID-19 Vaccine (4 - Pfizer series) COVID-19 Vaccine (4 - Pfizer series) [facility] Start: 01-24-2022 Influenza vaccination Influenza Vacc ine (#1) [facility] Start: 01-06-2022 NPV, Provider: Ketan Sorenson, Status: Pen, Time: 9:00 AM NPV, Provider: Ketan Sorenson, Status: Pen, Time: 9:[address] [facility] [address] Work Phone: Start: 10-21-2021 End: 10-21-2021 Patient encounter procedure 10/21/2021 Office Visit Podiatry Constance Parr, AYAN[place] [address] [facility], [address] [place] [address] [facility] Start: 09-26-2021 COVID-19 Vaccine (5 - Booster for Pfizer series) COVID-19 Vaccine (5 - Booster for Pfizer series) [facility] Start: 12-17-2020 EPV, Provider: Clement Adamson, Status: Pen, Time: 8:00 AM EPV, Provider: Clement Adamson, Status: Pen, Time: 8:[address] [facility] [address] Work Phone: Start: 09-29-2020 Cholesterol [Mass/volume] in Serum or Plasma Cholesterol [facility] Start: 07-08-2020 MG Breast screening Mamm - Scr eening Mammogram w/ Tomosynthesis [facility] 260 Work Phone: Start: 01-11-2020 Pneumococcal vaccination Pneumococcal Vaccine(s) (65+ yrs) (3 of 3 - PPSV23 or PCV20) [facility] Start: 07-14-2019 MG Breast screening Mamm - Scr eening Mammogram w/ Tomosynthesis [facility] 260 Work Phone: Start: 01-05-2019 Pneumococcal vaccination [facility] Start: 01-05-2019 Pneumococcal Vaccine : 65+ Years (3 - PPSV23 or PCV20) Pneumococcal Vaccine: 65+ Years (3 - PPSV23 or PCV20) [facility] Start: 09-29-2016 Basic metabolic 2000 panel - Serum or Plasma Basic Metabolic Panel [facility] Start: 09-29-2016 Creatinine measurement Basic Metabol ic Panel [facility] Start: 07-04-2016 Screening for malignant neoplasm of [facility] Start: 02-24-2015 Annual wellness visit Annual W ellness Visit ([id number]) [facility] Start: 04-08-2014 Measurement of occul t blood in single stool specimen FIT [facility] Start: 04-08-2014 Screening for malignant neoplasm of colon [facility] Start: 2009 Hepatitis B (HBV) Vaccine (optional start 60+ years) Hepatitis B (HBV) Vaccine (optional start 60+ years) [facility] Start: 2009 RSV vaccine (optiona l 60+ years) RSV vaccine (optional 60+ years) [facility] Start: 1994 Screening for malignant neoplasm of colon [facility] Start: 02-27-1968 Hepatitis A (HAV) Vaccine (optional start 19+ years) Hepatitis A (HAV) Vaccine (optional start 19+ years) [facility] Start: 1967 Hepatitis C screening Hepatitis C [facility] Start: 1949 Medicare Annual Wellness Visit Medicare Annual Wellness Visit (AWV) [facility] Start: 1950 Screening for malignant neoplasm of colon [facility] End: 09-03-2023 CT for calcium scoring WO contrast and CTA W contrast IV Heart and coronary arteries [facility] [[email or web address] Service Area Work Phone: Comment on above: Once for 1 Occurrenc es starting 09/03/2023 until 09/03/2023 [facility] Work Phone: NEGATED: Highlighted row has been ruled out! Planned Goals not documented [facility] Work Phone: Immunizations Immunization Date Immunization Notes Care Provider Fa cility 09-01-2023 Pneumococcal conjuga te vaccine, 20-valent (PREVNAR 20) Clement Adamson MD Work Phone: [facility] Work Phone: 06-28-2023 SARS-CoV-2, Unspecified Puja Adamson MD Work Phone: [facility] Work Phone: 02-10-2023 respiratory syncytia l virus monoclonal antibody (palivizumab), intramuscular Clement Adamson MD Work Phone: [facility] Work Phone: 01-27-2023 influenza, seasonal, injectable Clement Adamson MD Work Phone: [facility] 01-24-2023 Pfizer COVID-19 vaccine, Fall 2022, 12 years and older, (30mcg/0.3mL) [facility] Work Phone: 01-24-2023 SARS-CoV-2, Unspecified Puja Adamson MD Work Phone: [facility] Work Phone: 01-15-2022 influenza, seasonal, injectable Clement Adamson Work Phone: [address] [facility] [address] Work Phone: Comment on above: Series: 01-06-2022 Fluzone High-Dose Quadrivalent 0.7 ML Intramuscular Suspension Prefilled Syringe Clement Adamson Work Phone: [facility] [facility] [address] Work Phone: Comment on above: Series: 01-06-2022 influenza virus vaccine, unspecified formulation Clement Adamson MD Work Phone: [facility] Work Phone: 01-01-2022 Pfizer COVID-19 Vac Bivalent 30 MCG/0.3ML Intramuscular Suspension Clement Adamson Work Phone: [facility] 08-01-2021 Comirnaty 30 MCG/0.3 ML Intramuscular Suspension Clement Adamson Work Phone: [id number] [address] Work Phone: 01-20-2021 Pfizer-BioNTech COVID-19 Vacc 30 MCG/0.3ML Intramuscular Suspension Clement Ornelasac-Erickson Work Phone: [address] [facility] [address] Work Phone: 12-25-2020 influenza, high dose seasonal, preservative-free Clement Sarac-Erickson Work Phone: [address] [facility] Work Phone: 12-25-2020 influenza virus vaccine, unspecified formulation [facility] 06-21-2020 Pfizer-BioNTech COVID-19 Vacc 30 MCG/0.3ML Intramuscular Suspension Clement Ornelasac-Erickson Work Phone: [address] Work Phone: 05-31-2020 Pfizer-BioNTech COVID-19 Vacc 30 MCG/0.3ML Intramuscular Suspension Clement Ornelasac-Erickson Work Phone: [address] Work Phone: 02-19-2020 Fluzone High-Dose Quadrivalent 0.7 ML Intramuscular Suspension Prefilled Syringe Clement Ornelasac-Erickson Work Phone: [facility] [place] Work Phone: Comment on above: Series: 02-18-2020 Fluzone High-Dose Quadrivalent 0.7 ML Intramuscular Suspension Prefilled Syringe Clement Ornelasac-Erickson Work Phone: [address] Work Phone: Comment on above: Series: 01-22-2020 influenza virus vaccine, unspecified formulation [facility] 12-25-2019 tetanus toxoid, redu heidy diphtheria toxoid, and acellular pertussis vaccine, adsorbed Clement Sarac-Erickson Work Phone: [address] Work Phone: 01-10-2019 influenza, high dose seasonal, preservative-free Clement Sarac-Erickson Work Phone: [address] Work Phone: 08-16-2018 zoster vaccine recombinant Clement Adamson Work Phone: [address] Work Phone: 06-17-2018 zoster vaccine recombinant Clement Herbert-Erickson Work Phone: [address] Work Phone: 02-07-2018 Seasonal trivalent influenza vaccine, adjuvanted, preservative free Clement Herbert-Erickson Work Phone: [address] Work Phone: 02-02-2017 influenza, injectabl e, quadrivalent, contains preservative [facility] 02-02-2017 influenza, injectabl e, quadrivalent, preservative free; Translations: [Fluzone Quadrivalent 0.5 ML Intramuscular Suspension] [facility] Work Phone: Comment on above: Series: 01-30-2016 influenza, high dose seasonal, preservative-free Clement Herbert-Erickson Work Phone: [facility] 01-10-2015 influenza virus vaccine, whole virus Clement Herbert-Erickson Work Phone: [address] Work Phone: 01-10-2015 influenza, seasonal, injectable [facility] 01-10-2015 pneumococcal conjuga te vaccine, 13 valent Clement Herbert-Erickson Work Phone: [address] Work Phone: 01-22-2014 influenza, seasonal, [facility] 01-05-2014 pneumococcal polysaccharide vaccine, 23 valent Clement Herbert-Erickson Work Phone: [address] Work Phone: 01-24-2013 influenza, seasonal, injectable Clement Herbert-Erickson Work Phone: [address] Work Phone: 01-25-2012 influenza, seasonal, injectable [facility] 01-26-2011 influenza, seasonal, injectable [facility] 06-24-2010 tuberculin skin test ; purified protein derivative solution, intradermal [facility] 01-29-2010 influenza, seasonal, injectable [facility] 08-21-2009 tetanus toxoid, redu heidy diphtheria toxoid, and acellular pertussis vaccine, adsorbed Clement Adamson Work Phone: [address] Work Phone: 06-20-2009 zoster vaccine, live [facility] 04-02-2009 novel [id number], all formulations [facility] 01-28-2009 influenza, seasonal, injectable [facility] 02-10-2008 influenza, seasonal, injectable [facility] 02-08-2007 influenza, seasonal, injectable [facility] 02-23-2006 influenza, seasonal, injectable [facility] 2005 influenza virus vaccine, unspecified formulation [facility] 06-05-2004 influenza virus vaccine, unspecified formulation [facility] 02-13-2003 influenza virus vaccine, unspecified formulation [facility] Payers Date Payer Category Payer Private Health Insurance [id number] 2016 Unknown [id number] 2014 Medicare [id number] 2014 Medicare [id number] 1949 Unknown [id number] 2.16. [id number] 1949 Unknown [id number] 2.16. [id number] 1949 Unknown [id number] 2.16. [id number] 1949 Unknown [id number] 2.16. [id number] 1949 Unknown [id number] 2.16. [id number] 1949 Unknown [id number] 2.16. [id number] 1949 Unknown [id number] 2.16. [id number] 1949 Unknown [id number] 2.16.8 40.1.036303.3.579.2.1069 1949 Unknown [id number] 2.16.8 40.1.273632.3.579.2.1245 1949 Unknown [id number] 2.16.8 40.1.659736.3.579.2.1243 1949 Unknown [id number] 2.16.8 40.1.049255.3.579.2.1243 1949 Unknown [id number] 2.16.84 [id number] 1949 Unknown [id number] 2.16.8 40.1.275421.3.579.2.1244 1949 Unknown [id number] 2.16.8 40.1.254760.3.579.2.1244 1949 Unknown [id number] 2.16.8 [id number] 1949 Unknown [id number] 2.16.8 [id number] Unknown Social History Date Type Detail Facility - - [facility] Work Phone: Start: 02-07-2019 End: 08-12-2022 Never a smoker Never a smoker [facility] [address] Work Phone: Start: 01-30-2016 End: 08-12-2022 Tobacco smoking status MDIS Never smoked tobacco [facility] Start: 02-07-2019 Alcohol intake Current drinke r of alcohol (finding) [facility] Start: 1950 Sex Assigned At Not on file [facility] Start: 01-30-2016 End: 08-12-2022 Tobacco use and exposure Smokeless tobacco non-user [facility] Start: 01-07-2023 Alcohol intake Defer [facility] Work Phone: Start: 02-07-2019 End: 08-12-2022 Tobacco use panel [facility] Work Phone: Start: 1950 Sex Assigned At Female [facility] Start: 08-04-2022 Gender identity Identifies as female gender (finding) [facility] Work Phone: Start: 08-02-2023 End: 09-01-2023 Alcohol intake Ex-drinker (finding) [facility] Work Phone: Start: 07-23-2023 End: 09-03-2023 Exposure to SARS-CoV-2 (event) Not sure [facility] Within the last year , have you been afraid of your partner or ex-partner? No [facility] Work Phone: How hard is it for you to pay for the very basics like food, housing, medical care, and heating Not hard at all [facility] Work Phone: Do you feel stress - tense, restless, nervous, or anxious, or unable to sleep at night because your mind is troubled all the time - these days [OSQ] Not at all [facility] Work Phone: Medical Equipment Procedure Code Equipment Code Equipment Original Text Equipment Identifier Dates Cement, Gentamicin, Smarset Ghv, 40 Gm Case [id number] Start: 01-09-2019 Comment on above: Description: Convert ed from [facility]. Please see archived information for full log information. Insert, Tibia Sigma, Curved Gvf, 4 10mm Case [id number] Start: 10-18-2018 Comment on above: Description: Convert ed from [facility]. Please see archived information for full log information. Insert, Tibia Sigma, Curved Gvf, 4 10mm Case [id number] Start: 01-09-2019 Comment on above: Description: Convert ed from [facility]. Please see archived information for full log information. Patella Oval Dom e 35 Case [id number] Start: 10-18-2018 Comment on above: Description: Convert ed from [facility]. Please see archived information for full log information. Femoral Component, Cr Box Car Loader 4 Left Case [id number] Start: 01-09-2019 Comment on above: Description: Convert ed from [facility]. Please see archived information for full log information. Femoral, Pfc Sig Cr Npor, Rt Sz 4 Case [id number] Start: 10-18-2018 Comment on above: Description: Convert ed from [facility]. Please see archived information for full log information. Bone Cement, Smart Set, High Viscosity, 40gm Case [id number] Start: 10-18-2018 Comment on above: Description: Convert ed from [facility]. Please see archived information for full log information. Tray, Tibia Sig Mod Chandra Cocr 4 Case [id number] Start: 10-18-2018 Comment on above: Description: Convert ed from [facility]. Please see archived information for full log information. Tray, Tibia Sig Mod Chandra Cocr 4 Case [id number] Start: 01-09-2019 Comment on above: Description: Convert ed from [facility]. Please see archived information for full log information. Patella Oval Dom e 35 Case [id number] Start: 01-09-2019 Comment on above: Description: Convert ed from [facility]. Please see archived information for full log information. Functional Status Date Assessment Result Facility 10-01-2020 PHQ-9 Adult Depressi on Score PHQ-9 Adult Depression Score 2 [facility] Work Phone: Comment on above: Q1: 0, Q2: 1, Q3: 1, Q4: 0, Q5: 0, Q6: 0, Q7: 0, Q8: 0, Q9: 0, NEGATED: Highlighted row Functional performance Functional status health issues are not documented Disease -[facility] Work Phone: Mental Status Date Assessment Result Facility NEGATED: Highlighted row Cognitive function [Interpretation] Cognitive status health issues are not documented Disease [facility] Work Phone: Clinical Notes 09-16-2021 to 09-01-2023 Clement Adamson MD - 09/01/2023 10:20 AM EDTSjered Adamson MD - 01/07/2023 1:40 PM EDT Note Date & Type Note Facility 09-01-2023 History of Present illness Narrative Subjective Reason for Visit: Karthik Anderson is an 73 y.o. female here for a Medicare Wellness visit. Past Medical, Surgical, and Family History reviewed and updated in chart. Reviewed all medications by prescribing practitioner or clinical pharmacist (such as prescriptions, OTCs, herbal therapies and supplements) and documented in the medical record. HPI The patient presents for an annual wellness exam with no concerns. Patient Care Team: Clement Adamson MD as PCP - General (Internal Medicine) Clement Adamson MD as PCP - [facility] ACO Attributed Provider Review of Systems Negative Objective Vitals: BP 160/80 Pulse 79 Ht 1.651 m (5' 5 ) Wt 93 kg (205 lb) SpO2 99% BMI 34.11 kg/m Physical Exam NAD. Cooperative. HEENT: WNL Neck: WNL Lungs CTA Heart: RRR Abdomen: WNL Musculoskeletal system: WNL Neurologic exam: WNL Assessment/Plan Problem List Items Addressed This Visit Hyperlipidemia Relevant Orders Lipid panel TSH CT cardiac scoring wo IV contrast Essential hypertension Relevant Medications losartan (Cozaar) 25 mg tablet Other Relevant Orders CBC Albumin, urine, random Allergic rhinitis Relevant Medications azelastine (Astelin) 137 mcg (0.1 %) nasal spray Other Visit Diagnoses Medicare annual wellness visit, subsequent - Primary Relevant Orders Comprehensive metabolic panel Need for hepatitis C screening test Relevant Orders Hepatitis C Antibody Immunization due IFG (impaired fasting glucose) Relevant Orders Hemoglobin A1C Noted and discussed uncontrolled HTN. BP goals were discussed, and cardiovascular complications due to uncontrolled state. Recommended to initiate a new antihypertensive, Losartan 25 mg in am in addition to the current medication regimen, healthy life style, DASH eating diet. Home BP monitor validation in the office, if available. Close office BP monitoring in 12 weeks. documented in this encounter [facility] Work Phone: 01-07-2023 History of Present illness Narrative Subjective [...] vaccines, COVID booster. documented in this encounter [facility] Work Phone: 06-25-2022 Chief complaint Narrative [...] a telehealth visit.video visit for therapy referral [facility] Work Phone: Evaluation note Diagnosis Abnormal urine odor- Primary Other nonspecific finding on examination of urine Benign paroxysmal positional vertigo of left ear documented in this encounter [facility] Work Phone: Evaluation note* Diagnosis Encounter for screening mammogram for malignant neoplasm of breast documented in this encounter [facility] Work Phone: Evaluation note* Diagnosis Medicare annual wellness visit, subsequent- Primary Need for hepatitis C screening test Special screening examination for other specified viral diseases Immunization due IFG (impaired fasting glucose) Hyperlipidemia, unspecified hyperlipidemia type Essential hypertension Unspecified essential hypertension Allergic rhinitis, unspecified seasonality, unspecified trigger documented in this encounter [facility] Work Phone: Evaluation note* Diagnosis Hyperlipidemia, unspecified hyperlipidemia type documented in this encounter [facility] Work Phone: History of Present illness Narrative* The patient is 70 year old woman with PMH significant for HTN, anxiety who presents to establish medical care. * Concerned about the worsening [...] 2016) on lorazepam 0.5 mg BID PRN [id number] (also prescribed hydroxyzine 25 mg PRN air [...] about 2months ago, high BP, went to [facility] ED, BP came down on its [...] above * Alba: no * AH: no. [place] sister's voice shortly after her in 2017. Brother also that year. * Derealization: * Subst: no tobacco, rare 1 beer, no other drugs * PPH * Meds: * Nadolol - she thinks it helps for BP, not sure if has an affect on anxiety * Lorazepam 0.5 mg maybe once monthly * Hydroxyzine - given to her in ED at [facility], makes her very tired, only took a couple of times * Psychiatrist: none previously * Therapy: Dr. Myles 2016 (was helpful) * Inpatient: none * Suicide attempts: none * SH * Home: Lives alone. * Family: Son and daughter a couple hours away. Sees grandchildren sometimes. 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 * Financial: doing ok, no worries * Activities: Goes out sometimes [place] in [place]. Reads a lot, spends time in her garden * FH * Daughter: some anxiety and depression * PMH * Per HPI * MROS * As above [facility] Work Phone: History of Present illness NarrativeThe patient presents to the office for blood pressure monitoring, the current medication regimen iswell tolerated.[facility] [address] Work Phone: History of Present illness NarrativeThe patient presents to the office for routine follow up requesting medication refills, C/O irritation with hemorrhoids following heavy lifting during the move to another residence.[facility] [address] Work Phone: History of Present illness NarrativeThis 71-year-old female presents clinic today for foot pain. Patient states right 4 and 5th toe tender when walking. Denies trauma . NO other pedal complaints. [facility] Work Phone: History of Present illness NarrativeThe patient presents to the office virtually, C/O intermittent dizziness, diagnosed with BPPV, inquiring about the referral for vestibular conditioning and PT.[facility] Work Phone: History of Present illness NarrativeThe patient presents to the office virtually with questions regarding the recent lab results, inquiring about the elevated glucose level, inquiring about the safety of Rosuvastatin and association with diabetes.[facility] Work Phone: History of Present illness NarrativeThe patient presents to the office virtually, C/O intermittent dizziness, diagnosed with BPPV, inquiring about the referral for vestibular conditioning and PT.[facility] Work Phone: Reason for referral (narrative)* Consultation (Routine) - Authorized Specialty Diagnoses / Procedures Referred By Sonia t Referred To Contact Otolaryngology Diagnoses Benign paroxysmal positional vertigo of left ear Procedures OK OFFICE/OUTPATIENT [facility] 60-74 MINUTES Clement Adamson MD [address] [facility] [address] [place] [address] Referral ID Status Reason Start Date Expiration Date Visits Requested Visits Authorized [id number] Authorized Specialty Services Required 01/07/2023 07/06/2023 1 1 [facility] Work Phone: Family History No Family [...] b/ppatient here for f/u visit on b/p Reason for Referral Specialty Diagnoses / Procedures Referred By Sonia boggs Referred To Contact Radiology Diagnoses Encounter for screening mammogram for malignant neoplasm of breast Procedures BI mammo bilateral screening tomosynthesis Clement Adamson MD [address] [place] [address] Referral ID Status Reason Start Date Expiration Date Visits Requested Visits Authorized [id number] Authorized Perform Procedure 06/10/2023 06/09/2024 1 1 Specialty Diagnoses / Procedures Referred By Sonia boggs Referred To Contact Radiology Diagnoses Hyperlipidemia, unspecified hyperlipidemia type Procedures CT cardiac scoring wo IV contrast Clement Adamson MD [address] [place] [id number] Referral ID Status Reason Start Date Expiration Date Visits Requested Visits Authorized [id number] Pending Review Perform Procedure 09/01/2023 08/31/2024 1 1 Referral ID Status Reason Start Date Expiration Date Visits Requested Visits Authorized [id number] Authorized Perform Procedure 09/01/2023 08/31/2024 1 1 Additional Source Comments INFORMATION SOURCE (unrecogn ized section and content) DATE CREATED AUTHOR 08/24/2020 [facility] DATE CREATED AUTHOR AUTHOR'S ORGANIZ ATION 06/13/2021 [facility] DATE CREATED AUTHOR AUTHOR'S ORGANIZ ATION 06/26/2022 [facility] DATE CREATED AUTHOR AUTHOR'S ORGANIZ ATION 06/27/2022 [email or web address] DATE CREATED AUTHOR AUTHOR'S ORGANIZ ATION 08/08/2022 [facility] DATE CREATED AUTHOR AUTHOR'S ORGANIZ ATION 09/06/2023 [facility] DATE CREATED AUTHOR AUTHOR'S ORGANIZ ATION 09/08/2023 [facility] DATE CREATED AUTHOR AUTHOR'S ORGANIZ ATION 12/13/2023 [facility] Reason for Visit (unrecogniz ed section and content) Reason Comments Follow-up Video visit for uti issues Specialty Diagnoses / Procedures Referred By Sonia boggs Referred To Contact Radiology Diagnoses Encounter for screening mammogram for malignant neoplasm of breast Procedures BI mammo bilateral screening tomosynthesis Clement Adamson MD [address] [place] [address] Referral ID Status Reason Start Date Expiration Date Visits Requested Visits Authorized [id number] Authorized Perform Procedure 06/10/2023 06/09/2024 1 1 Reason Comments Medicare Annual Wellness Visit Salty ambrose Patient here for medicare wellness visit Specialty Diagnoses / Procedures Referred By Sonia boggs Referred To Contact Radiology Diagnoses Hyperlipidemia, unspecified hyperlipidemia type Procedures CT cardiac scoring wo IV contrast Clement Adamson MD [address] [place] [address] Referral ID Status Reason Start Date Expiration Date Visits Requested Visits Authorized [id number] Authorized Perform Procedure 09/01/2023 08/31/2024 1 1 Care Teams (unrecognized sec tion and content) Executive Legal Secretary Relationship Specialty Start Date End Date Clement Adamson MD [address] [place] [address] PCP - General 09/17/20 Clement Adamson MD [address] [place] [address] PCP - MSSP ACO Attributed Provider 04/26/21 Executive Legal Secretary Relationship Specialty Start Date End Date Clement Adamson MD [address] [place] [address] PCP - MSSP ACO Attributed Provider 04/26/21 Clement Adamson MD [address] [place] [address] PCP - General Internal Medicine 08/02/23 Executive Legal Secretary Relationship Specialty Start Date End Date Clement Adamson MD [address] [place] [address] PCP - MSSP ACO Attributed Provider 04/26/21 Clement Adamson MD [address] [place] [address] PCP - General Internal Medicine 08/02/23 Executive Legal Secretary Relationship Specialty Start Date End Date Clement Adamson MD [address] [place] [address] PCP - MSSP ACO Attributed Provider 04/26/21 Clement Adamson MD [address] [place] [address] PCP - General Internal Medicine 08/02/23 FOR RECORDS PERTAINING TO PATIENTS WHO ARE [...] BE BASED ON THE PRIMARY CLINICAL RECORDS. [facility]. provides no warranty or guarantee of the accuracy or completeness of information in this document.
== END | disposition home or self-care (01) ==
LOC: LABSPEC 09:58
PROVIDERS: Referring Provider Physician Assistant; Visit Provider Physician Assistant
DX: N39.0 Urinary tract infection, site not specified (principal)
CPT/HCPCS: 87086; 87088

== ENCOUNTER 2024-05-05 01:31 | Emergency (ER) | payer MEDICARE, OTHER, SELFPAY ==
[2024-05-05 01:34] VITALS: BP 155/78; PULSE 83; RESP 18; TEMP 36.7; O2SAT 100; BMI 34.8
--- NOTE | 2024-05-05 02:07 | CT_ITS ---
INDICATION: Dizziness/vertigo EXAMINATION: CT BRAIN - CT Head or Brain W/O Contrast Injection TECHNIQUE: Multiple axial images were obtained of the head with sagittal and coronal reconstructed images. Individualized dose optimization techniques were used for this CT. IV contrast dosage and agent: None. COMPARISON: 10/23/2023 CT. FINDINGS: BRAIN PARENCHYMA: No evidence of an acute infarct or intracranial hemorrhage. No evidence of a mass. CSF SPACES: The ventricles, sulci and subarachnoid cisterns are appropriate for age. CALVARIUM, SKULL BASE, PARANASAL SINUSES AND MASTOID AIR CELLS: No fracture. Mastoid air cells are clear. Visualized paranasal sinuses are unremarkable. ORBITS: The globes, extraocular muscles, optic nerves and retrobulbar fat are unremarkable. CT/Brain/Head without Contrast IMPRESSION: No acute intracranial abnormality. Electronically Signed: Layton Ware DO at 4:01 EST ,
[2024-05-05] MEDS: Ondansetron 4 MG/2 ML Vial IV (02:25)
[2024-05-05] MEDS: diazePAM 5 MG Tablet 2.5 MG PO ×2 (02:25→03:50)
[2024-05-05] MEDS: 0.9% Normal Saline (1000mL) 1,000 ML 999 ML IV (02:25)
[2024-05-05 02:34] LABS: Absolute Lymphocyte Count 1.59 X10^3/uL (0.83-4.51); Basophil# 0.06 X10^3/uL; Basophil% 1.1 % (0-1); Eosinophil# 0.23 X10^3/uL; Eosinophils% 4.2 % (0-5); Hematocrit 37.5 % (37-47); Hemoglobin 12.5 g/dL (12.0-15.0); Lymphocyte # 1.59 X10^3/ul (0.83-4.51); Mean Corp Hgb Conc 33.3 g/dL (32-36); Mean Corpuscular Hgb 28.6 pg (27.0-32.0); Mean Corpuscular Volume 85.8 fL (81-99); Mean Platelet Vol. 9.7 fl (6.2-12.0); Monocyte# 0.58 X10^3/uL; Monocyte% 10.6 % (0-10); NRBC Flagged by Analyzer 0 % (0-5); Neutrophil % 54.7 % (47-70); Platelet Count 182 K/mm3 (150-450); RBC Distribution Width CV 13.2 % (11.6-14.6); RBC Distribution Width SD 41.9 fl (35.1-43.9); Red Blood Count 4.37 M/mm3 (4.2-5.4); White Blood Count 5.5 K/mm3 (4.4-11.0)
--- NOTE | 2024-05-05 02:36 | EX.ED.DYSGE1 ---
HPI History of Present Illness Chief Complaint: Dizziness Informant: patient Narrative Narrative: Patient is a 74-year-old female with past medical history of hypertension osteoarthritis and intermittent peripheral vertigo. She states she got up roughly an hour prior to arrival to use the bathroom and when she did so she felt off balance. She describes this as a sense of motion or rocking back and forth. She states she feels nausea when the symptoms occur. She states that if she sits down and lay still symptoms seem to resolve. She took a meclizine which has helped her symptoms in the past but after doing so there was no significant improvement and therefore she presents to the hospital for evaluation. [facility] Medical History Contusion of left lesser toe(s) without damage to nail, initial encounter Laceration of lesser toe of left foot Hypertension Hemorrhoid Arthritis Stiffness of left knee Home Medications ?Medication ?Instructions ?Recorded ?Last Taken ?Type biotin 1 mg capsule 1 mg PO DAILY 01/28/22 Unknown History cholecalciferol (vitamin D3) 25 25 mcg PO DAILY 01/28/22 Unknown History mcg (1,000 unit) capsule coenzyme [id number] E 100 mg-100 1 cap PO DAILY 01/28/22 Unknown History unit capsule hydrochlorothiazide 12.5 mg capsule 12.5 mg PO DAILY 01/28/22 Unknown History magnesium 200 mg tablet 200 mg PO DAILY 01/28/22 Unknown History nadolol 20 mg tablet 20 mg PO DAILY 01/28/22 Unknown History rosuvastatin 20 mg tablet 20 mg PO QHS hyperlipidemia 01/28/22 Unknown History omeprazole 20 mg capsule,delayed 10 mg PO DAILY 07/06/22 Unknown History release calcium citrate 250 mg PO DAILY PRN OSTEOPOROSIS 04/30/23 Unknown History ibandronate 150 mg tablet 125 mg PO QMONTH osteoporosis 04/30/23 Unknown History meclizine 12.5 mg tablet 12.5 mg PO TID PRN dizziness 04/30/23 Unknown History multivitamin (Daily Multi-Vitamin 1 tab PO DAILY 04/30/23 Unknown History tablet) losartan 25 mg tablet 50 mg PO DAILY 02/15/24 Unknown History amlodipine 2.5 mg tablet 2.5 mg PO QDAY 04/05/24 Unknown History diazepam 5 mg tablet (Valium) 5 mg PO TID PRN vertigo 5 days #15 05/05/24 Unknown Rx tabs ondansetron 4 mg disintegrating 4 mg PO TID PRN nausea and 05/05/24 Unknown Rx tablet vomiting #21 tabs Allergy/AdvReac Type Severity Reaction Status Date / Time No Known Allergies Allergy Verified 05/05/24 01:33 Family History Other Cancer Heart disease Surgical History Hx of total knee arthroplasty Hx of appendectomy History of cholecystectomy H/O: hysterectomy Social History household members: none Smoking Status: Never smoker alcohol intake: current alcohol intake frequency: holidays/special occasions only ROS ROS ED Constitutional Constitutional ED: Denies chills or fever(s) Eyes Eyes: Denies change in vision ENT ENT ED: Denies sore throat Cardiovascular Cardiovascular: Denies chest pain, palpitations or racing heartbeat Respiratory/Chest Respiratory/Chest: Denies cough or dyspnea Gastrointestinal Gastrointestinal: Reports nausea; Denies abdominal pain, diarrhea or vomiting Genitourinary Genitourinary ED: Denies dysuria Musculoskeletal Musculoskeletal: Denies myalgias Integumentary Denies rash Neurologic Neurologic: Reports other Details: Positive dizziness ; Denies headache(s) Hematologic/Lymphatic Hematologic/Lymphatic: Denies easy bleeding or easy bruising EXAM Physical Exam Const Vital Signs: 05/05/24 01:34 05/05/24 03:12 05/05/24 04:36 Temperature 98.0 F 98.2 F Temperature Source Oral Pulse Rate 83 83 87 Respiratory Rate 18 13 18 Blood Pressure 155/78 H 146/79 H 139/74 H Blood Pressure Mean 103 101 95 Pulse Ox 100 99 98 Oxygen Delivery Method Room Air Room Air Positive well nourished and well developed General Appearance ED: well developed; Negative for pallor HEENT Reports TM's clear HEENT Narrative: Normocephalic atraumatic Tympanic Membrane ED: Yes TM's clear Eyes PERRL and EOMs intact bilaterally General Eye ED: Negative for scleral icterus Neck supple Resp normal respiratory effort and clear to auscultation bilaterally Cardio regular rate and regular rhythm GI normal to inspection, nondistended, normoactive bowel sounds, non-tender, non-distended and no masses Auscultation: normoactive bowel sounds Palpation: soft Extremity normal to inspection Neuro oriented x3, CN's II-XII intact bilaterally and no sensory deficits noted Neuro Narrative: GCS of 15 Cranial nerves II through XII are grossly intact without focal neurologic deficit No pronator drift no dysmetria no truncal ataxia There is horizontal nystagmus noted Positive Hallpike [place] exam on right NIH stroke scale score of 0 Sensorium / Orientation: alert Motor Exam: strength 5/5 throughout Psych mental status grossly normal Skin no rashes or lesions noted General Skin Exam: Negative for jaundice or pallor MDM MDM MDM Narrative Medical decision making narrative: Patient presented to the ER mildly hypertensive but has a past medical history of this. She reported dizziness that occurred with getting up to go to the restroom and it seemed to improve when she was at rest. However as she turned her head or change positions the dizziness reoccurred. Symptoms are most consistent with peripheral vertigo in order to ensure however that she does not have the symptoms related to acute blood loss anemia clinically significant electrolyte abnormality acute kidney injury or potential spontaneous brain bleed or mass I did elect to perform basic laboratory studies and a CT scan of the head. CT revealed no acute findings and laboratory studies revealed no clinically significant findings either. After IV hydration and treatment with Valium the patient had resolution of her dizziness and could change positions and stand without recurrence of symptoms. Therefore at this time with overall negative workup and resolution of symptoms with treatment there is no need for further intervention in the ER and she is otherwise safe for discharge History & Record Review Discussion w/independent historian: Patient Lab Data Attestation: I reviewed the patient's lab results. Labs: Laboratory Results - last 24 hr 05/05/24 02:25 WBC 5.5 RBC 4.37 Hgb 12.5 Hct 37.5 MCV 85.8 MCH 28.6 MCHC 33.3 RDW Std Deviation 41.9 RDW Coeff of Mey 13.2 Plt Count 182 MPV 9.7 Immature Gran % (Auto) 0.400 Neut % (Auto) 54.7 Lymph % (Auto) 29.0 [place] % (Auto) 10.6 H Eos % (Auto) 4.2 Baso % (Auto) 1.1 H Absolute Neuts (auto) 3.0 Absolute Lymphs (auto) 1.59 Nucleated RBC % 0 Sodium 140 Potassium 3.3 L Chloride 109 H Carbon Dioxide 26.0 Anion Gap 6 BUN 14 Creatinine 0.71 Estim Creat Clear Calc 69.25 Est GFR (MDRD) Af Amer 103 Est GFR (MDRD) Non-Af 85 BUN/Creatinine Ratio 19.6 Glucose 119 H Calcium 8.9 Magnesium 2.0 Radiography Diagnostic Testing: Clinical Impression(s) from Imaging Studies Brain CT 05/05/24 02:07 IMPRESSION: No acute intracranial abnormality. Electronically Signed: Layton Ware DO at 4:01 EST , Discharge Plan Triage Chief Complaint: Dizziness ED Provider: Goldy Lynn Dx/Rx/DC Orders Clinical Impression: Peripheral vertigo, Hypertension Instructions: Vestibular Rehab Therapy, ED Vertigo, Unspecified Prescriptions: New diazepam [Valium] 5 mg tablet 5 mg PO TID PRN (Reason: vertigo) 5 Days Qty: 15 0RF ondansetron 4 mg tablet,disintegrating 4 mg PO TID PRN (Reason: nausea and vomiting) Qty: 21 0RF No Action nadolol 20 mg tablet 20 mg PO DAILY hydrochlorothiazide 12.5 mg capsule 12.5 mg PO DAILY rosuvastatin 20 mg tablet 20 mg PO QHS magnesium 200 mg tablet 200 mg PO DAILY biotin 1 mg capsule 1 mg PO DAILY cholecalciferol (vitamin D3) 25 mcg (1,000 unit) capsule 25 mcg PO DAILY coenzyme [id number] 100-100 mg-unit capsule 1 cap PO DAILY omeprazole 20 mg capsule,delayed release(DR/EC) 10 mg PO DAILY losartan 25 mg tablet 50 mg PO DAILY amlodipine 2.5 mg tablet 2.5 mg PO QDAY meclizine 12.5 mg tablet 12.5 mg PO TID PRN (Reason: dizziness) Patient Comments: take 1/2 to 1 tablet by mouth three times a day if needed multivitamin [Daily Multi-Vitamin] Tablet 1 tab PO DAILY calcium citrate 250 mg calcium tablet 250 mg PO DAILY PRN (Reason: OSTEOPOROSIS) ibandronate 150 mg tablet 125 mg PO QMONTH Primary Care Provider: Liz Adamson Referrals: Liz Adamson MD [Primary Care Provider] - Print Language: Puerto [place]ican Disposition Disposition: Home, Self Care Discharge Date/Time: 05/05/24 04:44
[2024-05-05 02:48] LABS: Anion Gap 6 (5-15); BUN 14 mg/dL (7-18); BUN/Creat Ratio 19.6 RATIO (10-20); Calcium,Total 8.9 mg/dL (8.5-10.1); Chloride 109 mmol/L (98-107); Creatinine, Serum 0.71 mg/dL (0.55-1.02); EST Glomerular Filtration Rate 85 mL/min (>60); Est Glom Filt Rate - Afr Amer 103 mL/min (>60); Estimated Creatinine Clearance 69.25 ml/min; Glucose 119 mg/dL (74-106); Potassium 3.3 mmol/L (3.5-5.1); Sodium Level 140 mmol/L (136-145)
[2024-05-05 03:12] VITALS: BP 146/79; PULSE 83; RESP 13; O2SAT 99
[2024-05-05 04:36] VITALS: BP 139/74; PULSE 87; RESP 18; TEMP 36.8; O2SAT 98
== END 2024-05-05 04:44 | disposition home or self-care (01) ==
PROVIDERS: Emergency Provider Emergency Medicine; PCP Internal Medicine; Visit Provider Emergency Medicine
DX: H81.399 Other peripheral vertigo, unspecified ear (principal); I10 Essential (primary) hypertension
CPT/HCPCS: 70450; 80048; 83735; 85025; 96361; 96374; 99283; A4216; J2405

== ENCOUNTER 2024-06-27 09:30 | Outpatient (RCR) | payer MEDICARE, OTHER, SELFPAY ==
--- NOTE | 2024-05-31 13:07 | HP.PTEVAL ---
Patient's Visit Information Visit Information Visit Information: KARTHIK HOOPER is a 74 year old F referred to Physical Therapy by Dr. Juanito Paige DO with a diagnosis of L Hip OA. Date of Evaluation: 05/31/24 Physical Therapist: JULIETTE Villalobos Visit Plan Frequency: 2x /Week Duration: 3 Weeks Plan: 2X/ week for 3 weeks to work on learning indep stretching of B Quads, piriformis and gastroc. She has a full gym routine for strength. After she learns indep hip stretches she would like to try a few session in [place] to learn indep program HEP: standing heel and toe raises at the counter Subjective Subjective: She is doing some weights at [facility] and doing some exercises at home and Chair Yoga and Pool exercises. She has just dropped some weight on the machines. Two weeks after walking around sand and 12 hours in the car she started to have pain. said hip OA does not warrant a Hip replacement. She has only occ hip pain at night but better with a pillow between hips at night. Walking is good but she gets some R buttock pain. Stairs: She does not have stairs and has not done them much. Sit to stand: able to get up without using her arms. Objective Objective: Gait: walks with WBOS and decreased knee flexion and DF. Trunk AROM: flexion 50%, ext to neutral LE strength: R hip flex 11.9 and L 11.7 R knee ext 27.5 and L 25.7 R knee flex 15.5 and L 12.1 R DF 15.3 and L 15.6 in sitting Standing heel and toe raises: Pt has decreased toe ups and decreased heel raises Sit to stand: able to get up without the use of her arms Good bridge Tight B Quad and piriformis B Balance/Special Test Scores Lower Extremity Functional Score: 47 Goals Goal 1:: I HEP and pool program Goal Time Frame: 6-8 Weeks Goal 2:: Decrease B hip pain Goal Time Frame: 6-8 Weeks Goal 3:: Increase B hip flexibility of piriformis/Quads Goal Time Frame: 6-8 Weeks Goal 4:: Increase ability to heel and toe raise Goal Time Frame: 6-8 Weeks Rehabilitation Potential Rehabilitation Potential: Good Anticipated Interventions Patient/Client Instruction: Educate patient on: Condition and Plan of Care For the Purpose of:: To decrease pain, To increase ROM, To improve nutrient delivery to tissue, To improve muscle performance and motor function, To improve ability to perform ADL's, To increase tolerance to activity/condition/position, To improve performance and independence with ADL's, To decrease level of supervision to perform tasks, To improve ability of physical actions for home/community/work/leisure, To improve gait and locomotor functions, To improve health of tissue, To decrease soft tissue restriction and To increase flexibility/ROM Therapeutic Exercise to Include: Strength training, Endurance training, Flexibilty training, Gait and locomotor training, Passive ROM, Active ROM and Dynamic Lumbar Stabilization For the Purpose of:: To decrease pain, To increase ROM, To improve nutrient delivery to tissue, To improve muscle performance and motor function, To improve ability to perform ADL's, To increase tolerance to activity/condition/position, To improve performance and independence with ADL's, To decrease level of supervision to perform tasks, To improve ability of physical actions for home/community/work/leisure, To improve gait and locomotor functions, To improve health of tissue, To decrease soft tissue restriction and To increase flexibility/ROM Manual Therapy Techniques to Include: Passive ROM For the Purpose of:: To increase ROM, To improve health of tissue, To decrease soft tissue restriction and To increase flexibility/ROM Cryotherapy (ice pack, ice massage): Yes Thermo therapy (hot pack): Yes For the Purpose of:: To decrease pain, To increase ROM and To improve nutrient delivery to tissue Text: Thank you for the opportunity to evaluate your patient. For Medicare and Medicare HMO plans, please review the plan of care and approve it. It will need to be FAXED BACK to us at [phone] for Medicare purposes. For Medicare only, by signing this I certify the plan of care. Please let me know if there are questions or concerns regarding this plan of care. Physician Signature: Date:
--- NOTE | 2024-06-27 10:27 | HP.PTREVAL ---
Re-Evaluation Intro: Dr. Juanito aPige, DO, It has been my pleasure to treat KARTHIK HOOPER over the last 8 visits for L Hip OA. Please see the progress note below for an update on the physical therapy plan of care! Subjective Subjective: Pt reports that she is doing very good. She can not skip the exercises one day or she will feel stiff. She has not had any pain since . She thinks that she is sensitive to the weather changes. Pt wants to be on the schedule in a few weeks because she wants to make sure her pain does not come back. Pt feels that her gastroc flexibility has improved too. Objective Objective/Function: Increase gastroc, Quad, HS, piriformis muscle length. Pt feels indep in HEP Plan Plan Plan: Pt to have an appt in 3 weeks and will cancel if she has no more pain. She will do her HEP, gym routine and YOGA indep. Balance/Gait/Functional tests Balance/Special Test Scores Lower Extremity Functional Score: 62 Goals Goals Goal 1:: I HEP and pool program Goal Time Frame: 6-8 Weeks Goal Progress: Goal Met Goal 2:: Decrease B hip pain Goal Time Frame: 6-8 Weeks Goal Progress: Goal Met Goal 3:: Increase B hip flexibility of piriformis/Quads Goal Time Frame: 6-8 Weeks Goal Progress: Goal Met Goal 4:: Increase ability to heel and toe raise Goal Time Frame: 6-8 Weeks Goal Progress: Goal Met Anticipated Interventions Anticipated Interventions Patient/Client Instruction: Educate patient on: Condition and Plan of Care For the Purpose of:: To decrease pain, To increase ROM, To improve nutrient delivery to tissue, To improve muscle performance and motor function, To improve ability to perform ADL's, To increase tolerance to activity/condition/position, To improve performance and independence with ADL's, To decrease level of supervision to perform tasks, To improve ability of physical actions for home/community/work/leisure, To improve gait and locomotor functions, To improve health of tissue, To decrease soft tissue restriction and To increase flexibility/ROM Therapeutic Exercise to Include: Strength training, Endurance training, Flexibilty training, Gait and locomotor training, Passive ROM, Active ROM and Dynamic Lumbar Stabilization For the Purpose of:: To decrease pain, To increase ROM, To improve nutrient delivery to tissue, To improve muscle performance and motor function, To improve ability to perform ADL's, To increase tolerance to activity/condition/position, To improve performance and independence with ADL's, To decrease level of supervision to perform tasks, To improve ability of physical actions for home/community/work/leisure, To improve gait and locomotor functions, To improve health of tissue, To decrease soft tissue restriction and To increase flexibility/ROM Manual Therapy Techniques to Include: Passive ROM For the Purpose of:: To increase ROM, To improve health of tissue, To decrease soft tissue restriction and To increase flexibility/ROM Cryotherapy (ice pack, ice massage): Yes Thermo therapy (hot pack): Yes For the Purpose of:: To decrease pain, To increase ROM and To improve nutrient delivery to tissue Re-Evaluation Ending Re-evaluation ending: Please do not hesitate to contact me at [phone] by phone or if you have questions or concerns regarding this new plan of care! Sincerely, Verena William, MPT
--- NOTE | 2024-08-15 08:28 | HP.PTDCSUM ---
Discharge Summary D/C summary: It has been my pleasure to treat KARTHIK HOOPER referred by Dr. Juanito Paige DO, with the diagnosis of L Hip OA for a total of 8 visit(s). Discharge Date: 08/15/24 Please see the following information for a summary of their discharge status. Subjective Subjective: Pt reports that she is doing very good. She can not skip the exercises one day or she will feel stiff. She has not had any pain since . She thinks that she is sensitive to the weather changes. Pt wants to be on the schedule in a few weeks because she wants to make sure her pain does not come back. Pt feels that her gastroc flexibility has improved too. Pain L hip: Pain Intensity (Out of 10): 0 R hip: Pain Intensity (Out of 10): 4 Overall Improvement % Improvement: 80 Objective Objective/Function: Increase gastroc, Quad, HS, piriformis muscle length. Pt feels indep in HEP Goals Goal 1:: I HEP and pool program Goal Progress: Goal Met Goal 2:: Decrease B hip pain Goal Progress: Goal Met Goal 3:: Increase B hip flexibility of piriformis/Quads Goal Progress: Goal Met Goal 4:: Increase ability to heel and toe raise Goal Progress: Goal Met Plan Plan: Pt to have an appt in 3 weeks and will cancel if she has no more pain. She will do her HEP, gym routine and YOGA indep. D/C Information Discharge Comments: DC PT to HEP/gym routine d/c sentence: If there are questions or concerns regarding this patient's physical therapy, please feel free to call me at [phone]. Thank you for the referral of this patient. Sincerely, Verena William, MPT Balance/Gait/Functional tests Balance/Special Test Scores Lower Extremity Functional Score: 62 Improvement % Improvement: 80
== END 2024-06-27 19:00 | disposition home or self-care (01) ==
LOC: PT 09:30
PROVIDERS: PCP Internal Medicine; Referring Provider Orthopaedic Surgery; Visit Provider Orthopaedic Surgery
DX: M16.12 Unilateral primary osteoarthritis, left hip (principal)
CPT/HCPCS: 97110; 97162; 97530

== ENCOUNTER → 2025-01-08 | Outpatient (CLI) | payer MEDICARE, OTHER, SELFPAY ==
--- NOTE | 2025-01-08 14:41 | MRI_ITS ---
PROCEDURE: SPINE LUMBAR (ROUTINE) 01/08/2025 REASON FOR EXAM: PAIN X1 YEAR, WORSENING, R SIDE ANTERIOR PAIN TECHNIQUE: Procedure Code: MRISPL Modality: MR Procedure: SPINE LUMBAR (ROUTINE) FINDINGS: Vertebrae: The vertebral are preserved in height and signal. Alignment: Normal alignment. Conus Medullaris: Unremarkable. L1-2: No foraminal or canal stenosis. L2-3: Facet joint arthropathy and ligamentum flavum hypertrophy. No significant foraminal or canal stenosis. L3-4: Disc bulge. Facet joint arthropathy. Ligamentum flavum hypertrophy. Moderate bilateral foramina stenosis. Mild canal stenosis. L4-5: Disc bulge. A superimposed 2 mm central disc protrusion. Facet joint arthropathy. No foraminal or canal stenosis. L5-S1: Disc bulge. Facet joint arthropathy. No significant foraminal or canal stenosis. Sacrum: Unremarkable. Additional finding: Multiple bilateral parapelvic kidney cysts. MRI/Spine Lumbar (Routine) IMPRESSION: Multilevel degenerate changes predominantly at L3-L4 where there is the moderat e bilateral foraminal stenosis from facet joint arthropathy. No significant canal stenosis. Reading Location: [id number]
== END | disposition home or self-care (01) ==
LOC: MRI 14:31
PROVIDERS: PCP Internal Medicine; Referring Provider Student in an Organized Health Care Education/Training Program; Visit Provider Student in an Organized Health Care Education/Training Program
DX: M48.062 Spinal stenosis, lumbar region with neurogenic claudication (principal); M47.816 Spondylosis without myelopathy or radiculopathy, lumbar region
CPT/HCPCS: 72148

== ENCOUNTER 2025-02-14 10:30 | Outpatient (RCR) | payer MEDICARE, OTHER, SELFPAY ==
--- NOTE | 2024-12-08 12:58 | HP.PTEVAL ---
Patient's Visit Information Visit Information Visit Information: KARTHIK HOOPER is a 74 year old F referred to Physical Therapy by Dr. Juanito Paige DO with a diagnosis of R hip OA and L-spine facet arthritis/spondylosis. Date of Evaluation: 12/08/24 Physical Therapist: JULIETTE Villalobos Visit Plan Frequency: 2x /Week Duration: 6 Weeks Plan: 2X/ week for 6 weeks for stretching of R piriformis, PROM into R hip IR in sitting, neutral spine core stability, R hip flexion strength (to be able to get up steps and into the car easier) with HEP HEP: supine piriformis stretch with towel Subjective Subjective: Pt was here in May for her hip and she got better and was doing gym exercises on her own. She has mild to moderate hip arthritis in B hips and back arthritis and spondylosis. Her pain go worse in the R hip and Dr ramos do a spine X-ray. She is opting for pain meds at this time and PT to see if she can get better. She started to take Myloxicam and it has not done much. She describes the pain as R buttock pain (used massage gun) and into the groin. It is not a sharp pain but more of a dull-burning pain. It is when she is standing or at night sometimes she will get pain in her R buttock. Climbing stairs she will be miserable the next day. Walking is better than standing. No LBP per se. She is getting some pain in R knee and sometimes her thigh and sometimes lateral lower leg but does not think it is sciatica. She does adductor stretch, supine strap IT band and piriformis stretch at home. Pain Back pain: Pain Intensity (Out of 10): 0 R buttock pain: Pain Intensity (Out of 10): 3 Pain Intensity Range: 7 Objective Objective: Gait: walks with decrease stance time on the R LE. LE MMT: R hip flex 12.2 and L 14 R knee ext 17.4 and L 17.9 R knee flex 13.8 and 12.6 R supine hip abd 14.5 and L 16.3 Full bridge with no pain R piriformis is tight with increase pain with stretching. and no pain with stretching of the L with increase AROM Palpation: tender along the R piriformis muscle belly closer to the sacrum on the R side Pain with R hip moving into IR but no pain after. Balance/Special Test Scores Oswestry Low Back Score: 20 Goals Goal 1:: I HEP Goal Time Frame: 6-8 Weeks Goal 2:: Be able to walk with more equal stance time Goal Time Frame: 6-8 Weeks Goal 3:: Decrease R buttock and groin pain with walking by 50% Goal Time Frame: 6-8 Weeks Goal 4:: Be able to get leg into car with more ease Goal Time Frame: 6-8 Weeks Rehabilitation Potential Rehabilitation Potential: Good Anticipated Interventions Patient/Client Instruction: Educate patient on: Condition and Plan of Care For the Purpose of:: To decrease pain, To increase ROM, To improve nutrient delivery to tissue, To improve muscle performance and motor function, To improve ability to perform ADL's, To increase tolerance to activity/condition/position, To improve performance and independence with ADL's, To decrease level of supervision to perform tasks, To improve ability of physical actions for home/community/work/leisure, To improve gait and locomotor functions, To improve health of tissue, To decrease soft tissue restriction and To increase flexibility/ROM Therapeutic Exercise to Include: Strength training, Postural training, Flexibilty training, Gait and locomotor training, Neuromotor development, Passive ROM, Active ROM and Scapular Strength/Stabilization For the Purpose of:: To decrease pain, To increase ROM, To improve nutrient delivery to tissue, To improve muscle performance and motor function, To improve ability to perform ADL's, To increase tolerance to activity/condition/position, To improve performance and independence with ADL's, To decrease level of supervision to perform tasks, To improve gait and locomotor functions, To improve health of tissue, To decrease soft tissue restriction and To increase flexibility/ROM Functional Training to Include: Gait training For the Purpose of:: To improve gait and locomotor functions Manual Therapy Techniques to Include: Passive ROM and Soft tissue mobilization For the Purpose of:: To decrease pain, To increase ROM, To improve nutrient delivery to tissue, To improve muscle performance and motor function, To improve health of tissue, To decrease soft tissue restriction and To increase flexibility/ROM Text: Thank you for the opportunity to evaluate your patient. For Medicare and Medicare HMO plans, please review the plan of care and approve it. It will need to be FAXED BACK to us at [phone] for Medicare purposes. For Medicare only, by signing this I certify the plan of care. Please let me know if there are questions or concerns regarding this plan of care. Physician Signature: Date:
--- NOTE | 2025-01-09 11:59 | HP.PTREVAL ---
Re-Evaluation Intro: Dr. Juanito Paige, DO, It has been my pleasure to treat KARTHIK HOOPER over the last 9 visits for R hip OA and L-spine facet arthritis/spondylosis. Please see the progress note below for an update on the physical therapy plan of care! Subjective Subjective: MRI showed normal wear and tear. Pain management said she will get a steroid shot in her L spine on Wednesday. He will see if that alleviates some of the symptoms. Pt is sleeping better. Pain is less bad more often. He thinks that most is coming from spine and then some from the hip. Objective Objective/Function: Trunk AROM: flexion 100%, Ext 10%, SB B 50%, Rot B 75% LE MMT: R hip flex 9.1 and L 10.1 -SLUMP test B Plan Plan Plan: 2X/ week for 4-8 weeks to learn independent AT for neutral spine core stability, B hip strengthening (hip flexion), postural exercises, upright posture with gait with HEP Balance/Gait/Functional tests Balance/Special Test Scores Oswestry Low Back Score: 12 Goals Goals Goal 1:: I HEP Goal Time Frame: 6-8 Weeks Goal 2:: Be able to walk with more equal stance time Goal Time Frame: 6-8 Weeks Goal 3:: Decrease R buttock and groin pain with walking by 50% Goal Time Frame: 6-8 Weeks Goal Progress: Progressing Goal 4:: Be able to get leg into car with more ease Goal Time Frame: 6-8 Weeks Goal Progress: Progressing Goal 5:: Increase R hip flexion (at Re-eval: LE MMT: R hip flex 9.1 and L 10.1) Goal Time Frame: 6-8 Weeks Goal 6:: Decrease overall back and r hip pain by 50% Goal Time Frame: 6-8 Weeks Anticipated Interventions Anticipated Interventions Patient/Client Instruction: Educate patient on: Condition and Plan of Care For the Purpose of:: To decrease pain, To increase ROM, To improve nutrient delivery to tissue, To improve muscle performance and motor function, To improve ability to perform ADL's, To increase tolerance to activity/condition/position, To improve performance and independence with ADL's, To decrease level of supervision to perform tasks, To improve ability of physical actions for home/community/work/leisure, To improve gait and locomotor functions, To improve health of tissue, To decrease soft tissue restriction and To increase flexibility/ROM Therapeutic Exercise to Include: Strength training, Postural training, Flexibilty training, Gait and locomotor training, Neuromotor development, Passive ROM, Active ROM and Scapular Strength/Stabilization For the Purpose of:: To decrease pain, To increase ROM, To improve nutrient delivery to tissue, To improve muscle performance and motor function, To improve ability to perform ADL's, To increase tolerance to activity/condition/position, To improve performance and independence with ADL's, To decrease level of supervision to perform tasks, To improve gait and locomotor functions, To improve health of tissue, To decrease soft tissue restriction and To increase flexibility/ROM Functional Training to Include: Gait training For the Purpose of:: To improve gait and locomotor functions Manual Therapy Techniques to Include: Passive ROM and Soft tissue mobilization For the Purpose of:: To decrease pain, To increase ROM, To improve nutrient delivery to tissue, To improve muscle performance and motor function, To improve health of tissue, To decrease soft tissue restriction and To increase flexibility/ROM Re-Evaluation Ending Re-evaluation ending: Please do not hesitate to contact me at [phone] by phone or if you have questions or concerns regarding this new plan of care! Sincerely, Verena William MPT
--- NOTE | 2025-02-14 11:04 | HP.PTDCSUM ---
Discharge Summary D/C summary: It has been my pleasure to treat KARTHIK HOOPER referred by Dr. Juanito Paige DO, with the diagnosis of R hip OA and L-spine facet arthritis/spondylosis for a total of 18 visit(s). Discharge Date: 02/14/25 Please see the following information for a summary of their discharge status. Subjective Subjective: Pt loves the water exercises and can do them on her own. She is also doing her stretches at home. Her epidural spinal injection did now work at all. She is having a hip injection on Wednesday because now they are thinking it is her hip. They said her hip does not have enough arthritis to have a THR. The pain is a little better. The hip feels bad today but could be the weather changes. She still can not sit, stand or walk for a long period of time due to pain. 10 Pain Back pain: Pain Intensity (Out of 10): 5 R buttock pain: Pain Intensity (Out of 10): 5 GROIN: Pain Intensity (Out of 10): 0 Overall Improvement % Improvement: 30 Objective Objective/Function: LE MMT: R hip flex 9.5 and L 11.3 Gait: Walks with decrease stance time on the R LE Goals Goal 1:: I HEP Goal Progress: Goal Met Goal 2:: Be able to walk with more equal stance time Goal Progress: Goal Met Goal 3:: Decrease R buttock and groin pain with walking by 50% Goal Progress: Progressing Goal 4:: Be able to get leg into car with more ease Goal Progress: Progressing Goal 5:: Increase R hip flexion (at Re-eval: LE MMT: R hip flex 9.1 and L 10.1) Goal Progress: Goal Met Goal 6:: Decrease overall back and r hip pain by 50% Goal Progress: Progressing Plan Plan: DC PT to indep water exercises and continue with previously given HEP D/C Information Discharge Comments: DC PT to indep AT and HEP d/c sentence: If there are questions or concerns regarding this patient's physical therapy, please feel free to call me at [phone]. Thank you for the referral of this patient. Sincerely, Verena William, MPT Balance/Gait/Functional tests Balance/Special Test Scores Oswestry Low Back Score: 17 Improvement % Improvement: 30
== END 2025-02-14 19:00 | disposition home or self-care (01) ==
LOC: PT 10:30
PROVIDERS: PCP Internal Medicine; Referring Provider Orthopaedic Surgery; Visit Provider Orthopaedic Surgery
DX: M16.11 Unilateral primary osteoarthritis, right hip (principal); M47.816 Spondylosis without myelopathy or radiculopathy, lumbar region; M54.50 Low back pain, unspecified
CPT/HCPCS: 97110; 97113; 97161; 97530